=== PATIENT | male | born 1950 | race Caucasian/White ===

== ENCOUNTER → 2022-08-15 11:11 | Outpatient (BNVA) | payer OTHER, SELFPAY | PROVIDERS: PCP Family Medicine; Visit Provider Nurse Practitioner Family | DX: M15.9 Polyosteoarthritis, unspecified (principal) ==

== ENCOUNTER → 2022-09-26 14:23 | Outpatient (BNVA) | payer OTHER, SELFPAY | PROVIDERS: PCP Family Medicine; Visit Provider Surgery Vascular Surgery | DX: Z13.89 Encounter for screening for other disorder (principal) ==

== ENCOUNTER 2022-10-01 06:30 | Outpatient (REF) | payer OTHER, SELFPAY ==
--- NOTE | ~2022-10-01 | FL_ITS ---
EXAMINATION: XR FLUOROSCOPY WITH IMAGES CLINICAL INFORMATION: Post laminectomy syndrome. COMPARISON: None available TECHNIQUE: Fluoroscopy Supervised By: Dr. Ravi Fluoroscopy Time: 0.8 minutes Cumulative Dose: 34.3 mGy DAP: 7.80 Gycm2 Images: 1 FINDINGS: There is a single digital image obtained with the needle positioned at the L2-L3 disc level for pain management. No contrast is seen. No gross lytic or sclerotic process. FL/FL guidance in treatment room IMPRESSION: Fluoroscopy guidance was provided to the referrer for pain management.
== END 2022-10-01 06:31 | disposition home or self-care (01) ==
LOC: CF 06:30
PROVIDERS: Visit Provider Anesthesiology
DX: M96.1 Postlaminectomy syndrome, not elsewhere classified (principal); M79.671 Pain in right foot; M79.672 Pain in left foot; M15.9 Polyosteoarthritis, unspecified; I73.9 Peripheral vascular disease, unspecified
CPT/HCPCS: 62323; J1170

== ENCOUNTER → 2022-10-07 10:50 | Outpatient (BNVA) | payer OTHER, SELFPAY | PROVIDERS: PCP Family Medicine; Visit Provider Anesthesiology | DX: Z13.89 Encounter for screening for other disorder (principal) ==

== ENCOUNTER 2022-10-15 09:57 | Outpatient (REF) | payer OTHER, SELFPAY ==
--- NOTE | ~2022-10-15 | US_ITS ---
EXAMINATION: NONINVASIVE ASSESSMENT OF THE ARTERIES OF BOTH LOWER EXTREMITIES CLINICAL INFORMATION: Peripheral vascular disease. COMPARISON: None available. TECHNIQUE: Segmental ankle pulse volume recording, pressure measurement at the ankle and ankle brachial indices were obtained of the lower extremity arterial system bilaterally. In addition, bilateral lower extremity duplex ultrasound was performed with velocity measurements and waveform analysis in the common femoral arteries, profunda femoris arteries, proximal mid and distal superficial femoral arteries, popliteal arteries and tibial vessels. This study was performed at rest only. FINDINGS: a) AT REST: 1. The ankle-brachial indices are: Right 0.91 and left 0.89. >0.97-1.25 = normal - no significant arterial disease. 0.75-0.96 = mild peripheral arterial disease. 0.5-0.74 = moderate peripheral arterial disease. <0.50 = severe peripheral arterial disease. 2. Segmental pressure at ankle: Mildly decreased. 3. PVR waveform at ankle: Normal. 4. Duplex exam. Velocities in cm/sec and phasicity as well as the presence of plaque are reported below. RIGHT LEG: Minimal plaque is seen with the exception of tibial vessels which show some wgdf-tx-nujdqlef plaque. Multiphasic flow is present throughout. Elevated velocities in the mid SFA may represent some mild stenosis. Common Femoral: 123 Profunda Femoris: 114 Proximal SFA: 110 Mid SFA: 193 Distal SFA: 120 Popliteal: 58 Tibial: None visualized LEFT LEG: Minimal plaque is seen with the exception of tibial vessels which show some tbsd-mu-hqoagdir plaque. Multiphasic flow is present throughout. Elevated velocities in the mid SFA as well as the profunda origin may represent some mild stenotic disease. Common Femoral: 132 Profunda Femoris: 160 Proximal SFA: 123 Mid SFA: 187 Distal SFA: 66 Popliteal: 96 Tibial: 71 US/US arterial duplex LE BI IMPRESSION: By REYNALDO criteria, there is mild peripheral vascular disease bilaterally. There may be some mild SFA disease present.
--- NOTE | ~2022-10-15 | US_ITS ---
EXAMINATION: NONINVASIVE ASSESSMENT OF THE ARTERIES OF BOTH LOWER EXTREMITIES CLINICAL INFORMATION: Peripheral vascular disease. COMPARISON: None available. TECHNIQUE: Segmental ankle pulse volume recording, pressure measurement at the ankle and ankle brachial indices were obtained of the lower extremity arterial system bilaterally. In addition, bilateral lower extremity duplex ultrasound was performed with velocity measurements and waveform analysis in the common femoral arteries, profunda femoris arteries, proximal mid and distal superficial femoral arteries, popliteal arteries and tibial vessels. This study was performed at rest only. FINDINGS: a) AT REST: 1. The ankle-brachial indices are: Right 0.91 and left 0.89. >0.97-1.25 = normal - no significant arterial disease. 0.75-0.96 = mild peripheral arterial disease. 0.5-0.74 = moderate peripheral arterial disease. <0.50 = severe peripheral arterial disease. 2. Segmental pressure at ankle: Mildly decreased. 3. PVR waveform at ankle: Normal. 4. Duplex exam. Velocities in cm/sec and phasicity as well as the presence of plaque are reported below. RIGHT LEG: Minimal plaque is seen with the exception of tibial vessels which show some kucj-ld-lbbqqvpz plaque. Multiphasic flow is present throughout. Elevated velocities in the mid SFA may represent some mild stenosis. Common Femoral: 123 Profunda Femoris: 114 Proximal SFA: 110 Mid SFA: 193 Distal SFA: 120 Popliteal: 58 Tibial: None visualized LEFT LEG: Minimal plaque is seen with the exception of tibial vessels which show some xzpg-iu-pugdxibk plaque. Multiphasic flow is present throughout. Elevated velocities in the mid SFA as well as the profunda origin may represent some mild stenotic disease. Common Femoral: 132 Profunda Femoris: 160 Proximal SFA: 123 Mid SFA: 187 Distal SFA: 66 Popliteal: 96 Tibial: 71 US/US REYNALDO complete IMPRESSION: By REYNALDO criteria, there is mild peripheral vascular disease bilaterally. There may be some mild SFA disease present.
== END 2022-10-15 09:58 | disposition home or self-care (01) ==
LOC: HO.US 09:57
PROVIDERS: PCP Family Medicine; Visit Provider Surgery Vascular Surgery
DX: I70.213 Atherosclerosis of native arteries of extremities with intermittent claudication, bilateral legs (principal)
CPT/HCPCS: 93923; 93925

== ENCOUNTER 2022-10-17 11:44 | Day surgery (SDC) | payer OTHER, SELFPAY ==
[2022-10-10 15:16] VITALS: BMI 29.8
--- NOTE | 2022-10-16 12:21 | HO.ANESPROP2 ---
Documented by User: Radha Zamora NP 10/16/22 12:21 HPI - Anesthesia Eval Consult details Narrative: 72yo M for Intrathecal Drug Delivery Implant PMFSH Active Problems Active Problems: All Active Problems (Updated 10/10/22 @ 15:04 by Rianna Allen RN) Peripheral artery disease (Acute) Raynauds disease (Acute) Chronic pain syndrome (Acute) Peripheral neuropathy (Acute) Degenerative joint disease involving multiple joints (Acute) Failed back syndrome, lumbosacral (Acute) Foot pain, bilateral (Acute) Past Medical History Medical History (Updated 10/10/22 @ 15:04 by Rianna Allen RN) Abdominal tenderness Actinic keratosis Anxiety Chronic pain syndrome Constipated Degenerative joint disease involving multiple joints Depression Failed back syndrome, lumbosacral Foot pain, bilateral Functional diarrhea Hard of hearing Hypertensive disorder Leg edema Lumbar disc disease Nicotine dependence Osteoarthritis Peripheral artery disease Peripheral neuropathy Raynauds disease Seborrheic dermatitis Viral hepatitis C Surgical History Surgical History (Updated 10/10/22 @ 15:07 by Rianna Allen RN) H/O splenectomy History of appendectomy History of back surgery History of total hip replacement Social History Social History Alcohol intake: current Alcohol intake frequency: does not drink Patient Tobacco Use Status: Current everyday Tobacco user Tobacco use type: Cigarette Cigarette Packs Per Day: 0.5 Cigarettes Per Day: 10.0 Use of substances other than those prescribed or required for medical reasons: No Are you DNR?: No Advance Directives: No Advance Directives Information Provided: Yes Advance Directives on File: No Meds Allergies Allergy/AdvReac Type Severity Reaction Status Date / Time aspirin AdvReac Unknown Unknown Verified 10/07/22 10:53 Home Medications Medication Instructions Recorded Confirmed Last Taken Type cholecalciferol (vitamin D3) 75 75 mcg PO DAILY 08/15/22 10/17/22 10/16/22 History mcg (3,000 unit) tablet diltiazem HCl 120 mg 120 mg PO DAILY 08/15/22 10/17/22 10/16/22 History capsule,extended release 24 hr gabapentin 600 mg tablet 1,200 mg PO BID 08/15/22 10/17/22 10/16/22 History naproxen 500 mg tablet 500 mg PO BID 08/15/22 10/17/22 Unknown History omega 7-wzv-poq-fish oil 100 cap PO 08/15/22 Unknown History mg-160 mg-1,000 mg capsule (Fish Oil) paroxetine HCl 30 mg tablet 60 mg PO DAILY 08/15/22 10/17/22 10/16/22 History Exam Exam Date and Time: October 16, 2022 1221 Height,Weight and Vital Signs: Height 6 ft Weight 99.79 kg Assessment and Plan Assessment Anesthesia Assessment: Chart Reviewed Documented by User: Robert Waite MD 10/17/22 13:13 PMFSH Past Medical History Medical History (Updated 10/10/22 @ 15:04 by Rianna Allen RN) Abdominal tenderness Actinic keratosis Anxiety Chronic pain syndrome Constipated Degenerative joint disease involving multiple joints Depression Failed back syndrome, lumbosacral Foot pain, bilateral Functional diarrhea Hard of hearing Hypertensive disorder Leg edema Lumbar disc disease Nicotine dependence Osteoarthritis Peripheral artery disease Peripheral neuropathy Raynauds disease Seborrheic dermatitis Viral hepatitis C Family History Family history of problems with anesthesia: No Surgical History Surgical History (Updated 10/10/22 @ 15:07 by Rianna Allen RN) H/O splenectomy History of appendectomy History of back surgery History of total hip replacement History of Problems with Anesthesia: No Social History Social History Alcohol intake: current Alcohol intake frequency: does not drink Patient Tobacco Use Status: Current everyday Tobacco user Tobacco use type: Cigarette Cigarette Packs Per Day: 0.5 Cigarettes Per Day: 10.0 Use of substances other than those prescribed or required for medical reasons: No Are you DNR?: No Advance Directives: No Advance Directives Information Provided: Yes Advance Directives on File: No Meds Allergies Allergy/AdvReac Type Severity Reaction Status Date / Time aspirin AdvReac Unknown Unknown Verified 10/07/22 10:53 Home Medications Medication Instructions Recorded Confirmed Last Taken Type cholecalciferol (vitamin D3) 75 75 mcg PO DAILY 08/15/22 10/17/22 10/16/22 History mcg (3,000 unit) tablet diltiazem HCl 120 mg 120 mg PO DAILY 08/15/22 10/17/22 10/16/22 History capsule,extended release 24 hr gabapentin 600 mg tablet 1,200 mg PO BID 08/15/22 10/17/22 10/16/22 History naproxen 500 mg tablet 500 mg PO BID 08/15/22 10/17/22 Unknown History omega 8-nmz-bdd-fish oil 100 cap PO 08/15/22 Unknown History mg-160 mg-1,000 mg capsule (Fish Oil) paroxetine HCl 30 mg tablet 60 mg PO DAILY 08/15/22 10/17/22 10/16/22 History Exam Airway Mallampati Class: I TM Dist: >3cm Neck ROM: Full Denture: Lower Heart: ok Lungs: ok Assessment and Plan Assessment Anesthesia Assessment: Anesthesia Plan Discussed Final Anesthetic Review Family History of Problems with Anesthesia: No History of Problems with Anesthesia: No NPO: Yes ASA Class: II Final Preanesthetic Review: No Changes in Pt Med Stat, Meds/Allgs Chart Reviewed, Consent Obtained/Reviewed and Anes Risks/Benef Reviewed Patient Risk: Intermediate Procedure Risk: Intermediate Anesthetic Plan Anesthetic Plan: GA and Agree w/ Assess. and Plan Disposition: Standard PACU
[2022-10-17] VITALS (9 sets, daily range): BP systolic 130–166; BP diastolic 66–94; PULSE 64–83; RESP 16–20; TEMP 36.6–36.8; O2SAT 95–100
--- NOTE | ~2022-10-17 | FL_ITS ---
EXAMINATION: XR FLUOROSCOPY WITH IMAGES CLINICAL INFORMATION: Intrathecal drug delivery implant. COMPARISON: None available. TECHNIQUE: Fluoroscopy Supervised By: Dr. Haynes. Fluoroscopy Time: 0.3 minutes. Cumulative Dose: 7.44 mGy. DAP: 2.02 Gycm2. Images: 2. FINDINGS: There are 2 digital images obtained in the OR with epidural electrode positioned in lower dorsal spine. No gross bony abnormality seen. FL/FL guidance in OR IMPRESSION: Fluoroscopy guidance was provided to referring physician for pain management.
--- NOTE | ~2022-10-17 | XR_ITS ---
EXAMINATION: XR SOFT TISSUE NECK CLINICAL INDICATION: Dysphasia COMPARISON: None available. TECHNIQUE: Single frontal image FINDINGS: This exam is largely nondiagnostic. The respirator device and the patient's jaw is overlying the field. A lateral film was not obtained. XR/XR soft tissue neck IMPRESSION: Largely nondiagnostic exam due to single imaging overlying density. If further evaluation is warranted recommend CT
--- NOTE | ~2022-10-17 | XR_ITS ---
EXAMINATION: XR CHEST CLINICAL INFORMATION: Inability to swallow post anesthesia. COMPARISON: None available. TECHNIQUE: Frontal view of the chest was obtained. FINDINGS: No significant abnormality is noted involving the heart, lungs, mediastinum, bony thorax or soft tissues. XR/XR chest 1V IMPRESSION: No acute cardiopulmonary process.
[2022-10-17] MEDS: Lactated Ringers 1,000 ML 100 ML IVCONT (12:38)
--- NOTE | 2022-10-17 13:27 | P.HPSUR_ITS ---
Pre-Procedural Eval Section A Date of Service: 10/17/22 The patient is an INPATIENT: No Changes since office visit: Yes Patient answered all questions The History & Physical has been completed within 30 days and I have reviewed it.: No Section B Chief Complaint: Postlaminectomy syndrome, not elsewhere classified Details of Present Illness: As above Relevant Family History (Specify if Yes): No Relevant Social History: None Present Medications: see Short Stay Collaborative assessment Medical History: No relevant PMH History of Previous Operations: Relevant previous surgery/procedure and date(s) Allergies: Allergies Allergy/AdvReac Type Severity Reaction Status Date / Time aspirin AdvReac Unknown Unknown Verified 10/07/22 10:53 Review of Systems Sugical H&P ROS: Negative: Constitution, Cardiovascular, Respiratory, Neurological, Psychiatric, Hem-Onc, Allergic/Immunologic, Gastrointestinal, Genitourinary, Musculoskeletal, Integumentary, Endocrine and Eyes/ Ears/Nose/Throat Exam Surgical H&P Exam: Normal: HEENT, Normal: Heart, Normal: Lungs, Normal: Extremities, Normal: Abdomen, Normal: Skin and Normal: Neurological Plan Diagnosis/Plan: Unchanged I have reviewed the history and physical and performed a pertinent physical examination on my patient. No changes have occurred unless specified. Time Spent With Patient Time: Total time managing care of this patient today ____ minutes.
--- NOTE | 2022-10-17 13:37 | P.OP_ITS ---
Operative Note Operative Note Date of Service: 10/17/22 Narrative: Implantation of the intrathecal pain pump [employer]. After obtaining informed consent and explaining to the patient risks, benefits and alternatives to treat this patient's pain, he was brought up to the ope rating room where he was positioned prone on the OR table.? [place] [employer] monitors were applied and general anesthesia was induced withLMA inserted in prone position. All pressure points were protected.? The patient received antibiotic? cefasolin 2 g intravenously 30 minutes before incision. Time-out was performed delineating correct site and side of the procedure, name and date of of the patient, risk of fire, need for antibiotic prophylaxis risk of DVT and need for DVT prophylaxis. ? After that the patient entire back? and left upper buttock were prepped with Chloraprep and draped with full body drape including ioban film. Sterilely drape C-arm was brought over the OR field and square pictures of the L1, L2, L3 vertebrae were demonstrated on the screen.? severe spondylosis was noted at the entire lumbar spine..the entrance point? for the catheter was chosen as the L1- L2 interspace? .? Local anesthetic was injected into the skin and in the strict midline fashion? 6.5 cm vertical skin incision was made with #10 scalpel. The incision was widened with the Weitlaner retractor and deepened with electrocautery. Thorough hemostasis was obtained using electrocautery. The prevertebral fascia was freed from overlaying tissues. After that 100 mm introducer spinal 16 g needle was inserted under x-ray guidance in the projection of the right? L2 pedicle on AP view. The needle advanced under the x- ray guidance with intemittent A-P? and lateral pictures toward the spinal canal. When on the lateral view the needle entered the spinal canal the stylet was removed.?Clear straw colored CSF was running freely from the hub of the needle.? Intrathecal Ascenda catheter was inserted through the needle and advanced under the x-ray guidance toward the T8? T9 intervertebral body interval projection The advancement of the catheter was made in the posterior intrathecal space.. The stylet was removed from the catheter and the flow of CSF fluid straw colored and clear was observed coming from the catheter.? Purse-string suture was applied surrounding? the a needle and it was tied.? After that the needle was withdrawn with care taken to keep the catheter in place.? Anchoring device was dislodged on the catheter and advanced until it met prevertebral fascia.? It was engaged on the body of the catheter.?One anchoring Tycron suture was? used to suture left wing of the anchor to prevertebral fascia and 2 anchoring sutures Tycron was used to stitch in the right wing of anchoring device to prevertebral fascia. ?After that the thorough irrigation of the wound was performed and wound was packed with vancomycin soaked 4 x 4. Attention then was concentrated on the patient's? right upper buttock where he wanted to implant the body of the intrathecal pump..Sterilely draped C-arm was brought over the operative field again and position of the patient's ? left iliac crest was demonstrated on the screen.?3 cm below the projection of the? left iliac crest? to the skin of the local anesthetic bupivacaine? 0.75% was injected in the linear horizontal fashion.? After that 10?cm incision was performed in patient's? left upper buttock alongside the injected line. ? Thorough hemostasis was obtained using cautery device.? After that the wound was widened and made 3? cm deep .? The pocket was extended medially and laterally as well as caudally and cranially to form the space to accommodate the body of the pump.? Thorough hemostasis was performed. .The wound was irrigated with vancomycin containing normal saline and then tunneling device was used to connect both wounds and dislodged the intrathecal catheter into the side wound.? The catheter was trimmed appropriately after that and sutureless connection device was mounted on the catheter.? After that sutureless connection device was connected to the pump.? Aspiration with non- coring needle of the side port of the pump revealed clear flow of CSF.? three anchoring 1-0 Tycron sutures were applied in most SUPERIOR lateral, most inferior lateral and most inferior medial corners of the wound.? After that the sutures were connected to the brackets on the body of the pump, intrathecal catheter was gathered behind the body of the pump and pump was dislodged into the wound.? After that the anchoring sutures were tied.? After that noncoring needle was used again to reach side port of the pump in clear flow of CSF 0.5 mL was demonstrated in the syringe connected to the noncoring needle. ? Thorough irrigation was performed again in both wounds.? Thorough hemostasis was verified.? 0 polisorb sutures were used to close both wounds, 2-0 suture of the same nature were used to approximate the skin.? Letitia were applied to the skin line and Bacitracin ointment was applied to the staple lines.? Sterile dressing with sterile 4x4s was performed, abdominal binder was applied.? Upon completion of the procedure patient was awaken extubated and taken outside of the operating room to recovery room where HE recovered uneventfully
[2022-10-17] MEDS: dexAMETHasone sod phosphate 4 MG/ML VIAL IVPUSH (17:00)
--- NOTE | 2022-10-17 17:01 | PM.OP ---
Brief Operative Note Date of Service: 10/17/22 Pre-op diagnosis: postlaminectomy syndrone, chronic pain syndrome Post-op diagnosis: same Procedure: implantation of ITDD medtronics Implants: Ascenda intrathecal catheter and SynchroMed II intrathecal pain pump Surgeon: Dallas Ravi MD Anesthesia: GLMA Was an Metal Drill Operator used for this Procedure?: No Estimated blood loss (mL): 10 Pathology: none sent Condition: stable Disposition: PACU
[2022-10-17] MEDS: diphenhydrAMINE HCL 50 MG/ML VIAL 12.5 MG IVPUSH (17:07)
--- NOTE | 2022-10-17 17:07 | P.EN_ITS ---
Event Note Date of Service: 10/17/22 Event Note: Patient complaining of inability to swallow secretions upon waking up and being brought to the PACU. Producing copious secretions that require suctioning due to inability to swallow them. On physical examination the patient demonstrates intact strength in upper e xtremities and no deviation of the tongue or the uvula. He is able to articulate. My exam is limited in comparison since I did not meet him preoperatively. Intraop records reviewed; notable for exchange of LMA from size 4 to size 5 due to a leak. Examination undertaken with a video laryngoscope inserted into the oropharynx to assess the nogueira of the oropharynx. Notable edema noted surrounding the uvula along with excoriation raymond on the uvula and the pharynx. Likely secondary to LMA placement. Ordered 4 mg of IV dexamethasone, 12.5 mg of IV Benadryl, nebulizer of racemic epinephrine and a chest x-ray to rule out any retained objects in the pharynx. Ventilation appropriate, able to exchange or without difficulty, auscultation of the chest consistent with underlying COPD. Equal entry noted on both chest sides. Reassured patient that this is likely due to edema and swelling of upper airway tissue. Airway exchange is reassuring as well. We will continue to monitor response to IV dexamethasone and Benadryl as well as receive elier epinephrine nebulization. If he continues to exhibit symptoms of inability to manage secretions, may need overnight observation. Time Spent With Patient Time: Total time managing care of this patient today ____ minutes.
[2022-10-17] MEDS: Racepinephrine HCL 0.5 ML VIAL.NEB INHALE (17:31)
--- NOTE | 2022-10-17 20:43 | PC.NURSE ---
2042 Call from patient's daughter, Libby Ireland, along with patient's spouse present in regard to patient recent discharge instructions following pain procedure. Patient daughter expressed concerns regarding patient preoperative work up related to patient being hard of hearing and why were dentures not removed prior to procedure. KARISSA Lainez/Michael advised that a call should be made to Director of Anesthesia regarding this matter tomorrow to obtain additional information and discuss matter as PACU staff lack any direct knowledge of pre-operative work up of the patient. Daughter reports patient breathing stable and able to eat dinner meal without any swallowing difficulties. Patient daughter inquired regarding why patient unable to smoke post procedure. Reviewed recommendation post surgical procedure for safety and airway irritation for all patients is to avoid smoking for first 24 hours best practice if possible. Patient daughter questioned reasoning for Incentive Spiromenter. Why didn't my dad stay overnight if they are concerned with his breathing . Patient daughter educated in reasoning for use of I/S following any surgical procedures and that all surgical patients are cleared for discharge from anesthesia prior to departing. Again advised to follow-up with Director of Anesthesia and Patient daughter stated, I am ok with it.
== END 2022-10-17 18:30 | disposition home or self-care (01) ==
PROVIDERS: PCP Family Medicine; Visit Provider Anesthesiology
PROC: (CPT 62350; principal; 2022-10-17 13:20)
DX: M96.1 Postlaminectomy syndrome, not elsewhere classified (principal); G89.4 Chronic pain syndrome; I73.00 Raynaud's syndrome without gangrene; T88.8XXA Other specified complications of surgical and medical care, not elsewhere classified, initial encounter; R13.0 Aphagia; S00.512A Abrasion of oral cavity, initial encounter; S10.11XA Abrasion of throat, initial encounter; Y83.8 Other surgical procedures as the cause of abnormal reaction of the patient, or of later complication, without mention of misadventure at the time of the procedure; Y82.8 Other medical devices associated with adverse incidents; Y92.238 Other place in hospital as the place of occurrence of the external cause; G62.9 Polyneuropathy, unspecified; I10 Essential (primary) hypertension; I73.9 Peripheral vascular disease, unspecified; M15.9 Polyosteoarthritis, unspecified; M79.671 Pain in right foot; M79.672 Pain in left foot; Z79.899 Other long term (current) drug therapy; F17.210 Nicotine dependence, cigarettes, uncomplicated; Z88.8 Allergy status to other drugs, medicaments and biological substances
CPT/HCPCS: 62350; 62362; 70360; 71045; C1755; C1772; J0153; J0690; J1100; J1170; J1200; J2405; J2795; J3010; J3370

== ENCOUNTER → 2022-10-23 14:37 | Outpatient (BNVA) | payer OTHER, SELFPAY | PROVIDERS: PCP Family Medicine; Visit Provider Anesthesiology | DX: Z13.89 Encounter for screening for other disorder (principal) ==

== ENCOUNTER → 2022-10-29 13:03 | Outpatient (BNVA) | payer OTHER, SELFPAY | PROVIDERS: PCP Family Medicine; Visit Provider Nurse Practitioner Family | DX: Z13.89 Encounter for screening for other disorder (principal) ==

== ENCOUNTER → 2022-11-07 10:41 | Outpatient (BNVA) | payer OTHER, SELFPAY | PROVIDERS: PCP Family Medicine; Visit Provider Anesthesiology | DX: M15.9 Polyosteoarthritis, unspecified (principal); M96.1 Postlaminectomy syndrome, not elsewhere classified; M79.671 Pain in right foot; M79.672 Pain in left foot; G89.4 Chronic pain syndrome; G62.9 Polyneuropathy, unspecified | CPT/HCPCS: 62370 ==

== ENCOUNTER → 2022-11-12 14:09 | Outpatient (BNVA) | payer OTHER, SELFPAY | PROVIDERS: PCP Family Medicine; Visit Provider Surgery Vascular Surgery | DX: Z13.89 Encounter for screening for other disorder (principal) ==

== ENCOUNTER → 2022-12-18 13:34 | Outpatient (BNVA) | payer OTHER, SELFPAY | PROVIDERS: PCP Family Medicine; Visit Provider Anesthesiology | DX: Z45.89 Encounter for adjustment and management of other implanted devices (principal); G62.9 Polyneuropathy, unspecified; M15.9 Polyosteoarthritis, unspecified; M96.1 Postlaminectomy syndrome, not elsewhere classified; M79.671 Pain in right foot; M79.672 Pain in left foot; G89.4 Chronic pain syndrome | CPT/HCPCS: 62370 ==

== ENCOUNTER → 2023-01-29 15:03 | Outpatient (BNVA) | payer OTHER, SELFPAY | PROVIDERS: PCP Family Medicine; Visit Provider Anesthesiology | DX: Z45.1 Encounter for adjustment and management of infusion pump (principal); G89.4 Chronic pain syndrome; G62.9 Polyneuropathy, unspecified; M15.9 Polyosteoarthritis, unspecified; M96.1 Postlaminectomy syndrome, not elsewhere classified; M79.671 Pain in right foot; M79.672 Pain in left foot | CPT/HCPCS: 62370 ==

== ENCOUNTER 2023-03-10 15:03 | Outpatient (AMB) | payer OTHER, SELFPAY ==
--- NOTE | 2023-03-10 15:46 | MHC.OFFVIS ---
Intake Vital Signs 03/10/23 15:48 BP 159/77 H Blood Pressure Location Rt brachial Position Sitting Pulse 73 Pulse Source Pulse Oximeter Pulse Oximetry (%) 97 Oxygen Delivery Method Room Air Intake Visit Reasons: ITDD Refill Allergies aspirin Adverse Reaction (Unknown, Verified 03/10/23 15:48) Unknown Medication List - Last Reconciled 03/10/23 by Vira Hassan RN cholecalciferol (vitamin D3) 75 mcg PO DAILY diltiazem HCl 120 mg PO DAILY gabapentin 1,200 mg PO BID linaclotide (Linzess) 290 mcg PO DAILY naloxone 4 mg/actuation 4 mg intranasal Q3M PRN 1 day naproxen 500 mg PO BID omega [id number] oil 100-160-1,000 mg (Fish Oil) caps PO paroxetine HCl 60 mg PO DAILY HPI HPI Comments History of Present Illness Details Zheng is here today for pump refill and pump adjustment. The procedure was refilled as below. The concentration of the medication was changed. He will be now having 2000 micro g of hydromorphone in his pump and addition to that he will have 6 mg of the bupivacaine. He reports better pain relief. He reports better activities of daily living and better social interactions. Pain pump implant was performed on 10/17/2022. PRIOR: Patient is a 72 years old male with history of right lower lumbar radiculopathy, L5-S1 right microlumbar discectomy and bilateral lateral decompression, bilateral hip replacements, feet ulcers with skin grafting, percutaneous dorsal column [place] SCS and most recent right femur fracture presents today with severe neuropathic pain in both of his feet and ankles and widespread pain in his body. He is accompanied by his and his daughter is also present via phone speaker to assist with history intake. Patient arrived by wheelchair today due to stress fracture healing but has been using a walker for transfers and ambulation prior to this. Femur stress fracture is currently managed by [facility]. Pain is described as intermittent pulsing, throbbing, pounding, dull, sore, hurting, aching, heavy and stinging. Pain ranges from 5/10 to 9/10 in severity in the past 2 weeks. Patient reports his pain has been worsening over the past 4 years. He was followed by [facility] and received multiple injections for lumbar spinal stenosis with neurogenic claudication, physical therapy, chiropractic manipulation therapy, topical compound cream and medical management with opioid and non-opioid medications. He also tried yoga, heat and ice therapy and over the counter topical application without relief. Currently, patient is taking oxycodone 5 mg tid-qid for femur stress fracture, gabapentin 2400 mg/day and Naproxen prn. Also tried duloxetine and amitriptyline in the past with minimal effects. Patient was counseled in the past to avoid Lyrica and acetaminophen due to Hepatitis C. Patient reports SCS implant has been working well for the back but not for his feet. His program settings were readjusted many times but could not achieve reduction in lower legs and feet pain. SCS implant device was last adjusted on 03/2022. Reports progressive bilateral lower extremity weakness over the past 4 years. Patient denies bowel or bladder incontinence or saddle anesthesia. Patient reports history of DVT in his leg, cannot recall which side and location and reports history of 9 week hospitalization in 02/2021 for foot ulcers related to osteomyelitis and required skin grafts. He reports constant stinging pain in the mornings in the dorsal aspects of both feet. Patient denies diabetes mellitus. Patient is a former smoker. He used to see vascular surgeon Dr. Roman at [facility] for DVT with last visit over a year ago. Patient has significant discoloration of both feet with cold to touch, pale lower legs, absent hair growth and color changes in both dorsal surfaces of both feet. Diminished pulses with delayed capillary refill especially in his left 2nd toe which patient reports at times goes ?completely dark.? Patient presents with decreased sensation to plantar and dorsal surfaces. Reports rest and claudication pain. Patient reports constant stabbing, aching and burning pain in both feet. 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 Similar but milder neuropathy affecting upper extremities. This EMG study did not suggest demyelinating type of neuropathy. EMG study for noted for chronic right lower lumbar radiculopathy and chronic right mid to lower cervical radiculopathy. Lumbar spine MRI 12/07/21 showed moderate multilevel degenerative spondyloarthropathy of the lumbar spine and moderate to severe neural foraminal stenoses from L1-S1. Patient denies any specific cervical or lumbar pain today and is interested in interventional treatments to alleviate his ?both feet nerve pain? and increase strength in lower extremities with walking. [facility] Medical History Abdominal tenderness Actinic keratosis Anxiety Chronic pain syndrome Constipated Degenerative joint disease involving multiple joints Depression Failed back syndrome, lumbosacral Foot pain, bilateral Functional diarrhea Hard of hearing Hypertensive disorder Leg edema Lumbar disc disease Nicotine dependence Osteoarthritis Peripheral artery disease Peripheral neuropathy Raynauds disease Seborrheic dermatitis Viral hepatitis C Surgical History H/O splenectomy History of appendectomy History of back surgery History of total hip replacement Social History Alcohol intake: current Alcohol intake frequency: does not drink Patient Tobacco Use Status: Current everyday Tobacco user Tobacco use type: Cigarette Cigarette Packs Per Day: 0.5 Cigarettes Per Day: 10.0 Review of Systems Const All systems reviewed & are unremarkable except as noted in HPI and below ENT Reports Normal hearing present Neuro Reports Normal hearing present Physical Exam Vital Signs: Last Vital Signs Pulse 73 03/10/23 15:48 BP 159/77 H 03/10/23 15:48 Pulse Ox 97 03/10/23 15:48 Oxygen Delivery Method Room Air 03/10/23 15:48 General: Appears afebrile. Alert and oriented. Mood and affect appropriate. Follows and participates in conversation appropriately. Respiratory effort is unlabored. Able to transition from sit to stand with assistance of walker. Ambulates with bilaterally normal heel strike and toe off. Back/Spine/Pelvis Other: The dressing was removed. No pathological discharge, tenderness, redness, bruising or erythema noted in both incisions. The incisions were washed with ChloraPrep and mesha were removed. Steri strips were applied to battery pocket site incision. The incisions were washed with ChloraPrep again and dressed with bacitracin ointment, sterile dry gauze and Tegaderm film. Cervical Spine: No Cervical spine tenderness Thoracic/Lumbar Spine: thoracic and lumbar spine normal to inspection, Thoracic/lumbar spine scar(s), thoraco-lumbar ROM limited, No thoracic spinal tenderness and No lumbar spinal tenderness Neuro Cranial nerves: Yes Normal hearing present Assessment & Plan Assessment & Plan (1) Chronic pain syndrome: Code(s): G89.4 - Chronic pain syndrome (2) Peripheral neuropathy: Code(s): G62.9 - Polyneuropathy, unspecified (3) Degenerative joint disease involving multiple joints: Code(s): M15.9 - Polyosteoarthritis, unspecified Plan: He reports good pain relieve now. He will be receiving 90 micro g of hydromorphone a day as well as 80 micro g of hydromorphone every 4 hours p.r.n. pain intrathecally. Now hydromorphone will be giving to him with corresponding doses of the bupivacaine. This might improve his arthritic pain in the lower extremities. (4) Failed back syndrome, lumbosacral: Code(s): M96.1 - Postlaminectomy syndrome, not elsewhere classified Plan: ? Intrathecal pump refill. THE PATIENT CAME TODAY IN THE OR - PACU FOR THE CHANGE OF THE MEDICATION IN her PAIN PUMP. The name and date of were verified and informed consent was obtained for the procedure. ?The pump was interrogated and the residual amount of fluid was found to be 3.2 mL. HE WAS POSITIONED prone on the bed AND THE AREA OF THE INTRATHECAL PUMP WAS PREPPED WITH CHLORAPREP. The fenestrated drape was sterilely applied over the area of the pump. Sterile gloves were worn and of the aspiration system was assembled containing 2 in 22 gauge noncoring needle, the needle was connected to extension tubing which was connected to the 20 cc sterile syringe. The pain pump was palpated under the skin in the patient's right buttock area. The needle was inserted through the skin and the central plug of the pain pump and fluid was aspirated. The clear fluid was going into the syringe the total amount of the fluid was 3.2 mL .. After that a new batch? of medication was obtained which was containing hydromorphone in concentration 2000 micro g/ml and 6 mg/ml of bupivacaine. . The admixture was made in 20 cc syringe prepared by [facility]. The syringe was connected to the bacterial filter, and then connected to the extension tubing. After that the medication in the syringe was slowly instilled into the pump with aspirations at 15 and 5 cc raymond.? The pump was reprogrammed for the doses of continuous hydromorphone of 90 mcg a day, he is also is reprogrammed to receive 80 micro g of Dilaudid with corresponding doses of the bupivacaine on demand 4 times a day with lockout interval of 4 hours. The medication will be administered over 5 minutes . Bridge bolus was also program for 88 hours. (5) Foot pain, bilateral: Code(s): M79.671 - Pain in right foot; M79.672 - Pain in left foot Plan Next refill of the pump will be done in May. Coding Level of Care Code Est Pt Level 4 (32237) Procedure Only Diagnoses Chronic pain syndrome G89.4 Peripheral neuropathy G62.9 Degenerative joint disease involving multiple joints M15.9 Failed back syndrome, lumbosacral M96.1 Foot pain, bilateral M79.671; M79.672
[2023-03-10 15:48] VITALS: BP 159/77; PULSE 73; O2SAT 97
== END 2023-03-10 15:37 | disposition home or self-care (01) ==
PROVIDERS: PCP Family Medicine; Visit Provider Anesthesiology
DX: Z45.1 Encounter for adjustment and management of infusion pump (principal); G89.4 Chronic pain syndrome; G62.9 Polyneuropathy, unspecified; M15.9 Polyosteoarthritis, unspecified; M96.1 Postlaminectomy syndrome, not elsewhere classified; M79.671 Pain in right foot; M79.672 Pain in left foot
CPT/HCPCS: 62370; 99213

== ENCOUNTER → 2023-03-10 15:03 | Outpatient (BNVA) | payer OTHER, SELFPAY | PROVIDERS: PCP Family Medicine; Visit Provider Anesthesiology ==

== ENCOUNTER 2023-05-26 15:47 | Outpatient (AMB) | payer OTHER, SELFPAY ==
--- NOTE | 2023-05-26 15:51 | A.OFFVIS_ITS ---
Intake Vital Signs 05/26/23 16:02 Height 6 ft Weight 218 lb BMI 29.6 BP 138/82 Blood Pressure Location Rt radial Position Sitting Respiration 14 Pulse 66 Pulse Source Pulse Oximeter Pulse Oximetry (%) 93 Oxygen Delivery Method Room Air Intake Visit Reasons: PAIN PUMP FOLLOW UP AFTER MRI Intake Note: patient comes in for follow up after MRI. Pain level today 6-7/10. Allergies aspirin Adverse Reaction (Unknown, Verified 05/26/23 16:04) Unknown HPI HPI Comments History of Present Illness Details Zheng is here today for pump Interrogation after the MRI. It appears to be that the device is working appropriately. The pump refill is 06/02/2023. I will see this patient at that time. . He will be now having 2000 micro g of hydromorphone in his pump and addition to that he will have 6 mg of the bupivacaine. He reports better pain relief. He reports better activities of daily living and better social interactions. Pain pump implant was performed on 10/17/2022. PRIOR: Patient is a 72 years old male with history of right lower lumbar radiculopathy, L5-S1 right microlumbar discectomy and bilateral lateral decompression, bilateral hip replacements, feet ulcers with skin grafting, percutaneous dorsal column [place] SCS and most recent right femur fracture presents today with severe neuropathic pain in both of his feet and ankles and widespread pain in his body. He is accompanied by his and his daughter is also present via phone speaker to assist with history intake. Patient arrived by wheelchair today due to stress fracture healing but has been using a walker for transfers and ambulation prior to this. Femur stress fracture is currently managed by [facility]. Pain is described as intermittent pulsing, throbbing, pounding, dull, sore, hurting, aching, heavy and stinging. Pain ranges from 5/10 to 9/10 in severity in the past 2 weeks. Patient reports his pain has been worsening over the past 4 years. He was followed by [facility] and received multiple injections for lumbar spinal stenosis with neurogenic claudication, physical therapy, chiropractic manipulation therapy, topical compound cream and medical management with opioid and non-opioid medications. He also tried yoga, heat and ice therapy and over the counter topical application without relief. Currently, patient is taking oxycodone 5 mg tid-qid for femur stress fracture, gabapentin 2400 mg/day and Naproxen prn. Also tried duloxetine and amitriptyline in the past with minimal effects. Patient was counseled in the past to avoid Lyrica and acetaminophen due to Hepatitis C. Patient reports SCS implant has been working well for the back but not for his feet. His program settings were readjusted many times but could not achieve reduction in lower legs and feet pain. SCS implant device was last adjusted on 03/2022. Reports progressive bilateral lower extremity weakness over the past 4 years. Patient denies bowel or bladder incontinence or saddle anesthesia. Patient reports history of DVT in his leg, cannot recall which side and location and reports history of 9 week hospitalization in 02/2021 for foot ulcers related to osteomyelitis and required skin grafts. He reports constant stinging pain in the mornings in the dorsal aspects of both feet. Patient denies diabetes mellitus. Patient is a former smoker. He used to see vascular surgeon Dr. Roman at [facility] for DVT with last visit over a year ago. Patient has significant discoloration of both feet with cold to touch, pale lower legs, absent hair growth and color changes in both dorsal surfaces of both feet. Diminished pulses with delayed capillary refill especially in his left 2nd toe which patient reports at times goes ?completely dark.? Patient presents with decreased sensation to plantar and dorsal surfaces. Reports rest and claudication pain. Patient reports constant stabbing, aching and burning pain in both feet. 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 Similar but milder neuropathy affecting upper extremities. This EMG study did not suggest demyelinating type of neuropathy. EMG study for noted for chronic right lower lumbar radiculopathy and chronic right mid to lower cervical radiculopathy. Lumbar spine MRI 12/07/21 showed moderate multilevel degenerative spondyloarthropathy of the lumbar spine and moderate to severe neural foraminal stenoses from L1-S1. Patient denies any specific cervical or lumbar pain today and is interested in interventional treatments to alleviate his ?both feet nerve pain? and increase strength in lower extremities with walking. [facility] Medical History Abdominal tenderness Actinic keratosis Anxiety Chronic pain syndrome Constipated Degenerative joint disease involving multiple joints Depression Failed back syndrome, lumbosacral Foot pain, bilateral Functional diarrhea Hard of hearing Hypertensive disorder Leg edema Lumbar disc disease Nicotine dependence Osteoarthritis Peripheral artery disease Peripheral neuropathy Raynauds disease Seborrheic dermatitis Viral hepatitis C Surgical History H/O splenectomy History of appendectomy History of back surgery History of total hip replacement Social History Alcohol intake: current Alcohol intake frequency: does not drink Patient Tobacco Use Status: Current everyday Tobacco user Tobacco use type: Cigarette Cigarette Packs Per Day: 0.5 Cigarettes Per Day: 10.0 Review of Systems Const All systems reviewed & are unremarkable except as noted in HPI and below ENT Reports Normal hearing present Neuro Reports Normal hearing present Physical Exam Vital Signs: Last Vital Signs Pulse 66 05/26/23 16:02 Resp 14 05/26/23 16:02 BP 138/82 05/26/23 16:02 Pulse Ox 93 05/26/23 16:02 Oxygen Delivery Method Room Air 05/26/23 16:02 BMI result Body Mass Index 29.6 General: Appears afebrile. Alert and oriented. Mood and affect appropriate. Follows and participates in conversation appropriately. Respiratory effort is unlabored. Able to transition from sit to stand with assistance of walker. Ambulates with bilaterally normal heel strike and toe off. Back/Spine/Pelvis Other: The dressing was removed. No pathological discharge, tenderness, redness, bruising or erythema noted in both incisions. The incisions were washed with ChloraPrep and mesha were removed. Steri strips were applied to battery pocket site incision. The incisions were washed with ChloraPrep again and dressed with bacitracin ointment, sterile dry gauze and Tegaderm film. Cervical Spine: No Cervical spine tenderness Thoracic/Lumbar Spine: thoracic and lumbar spine normal to inspection, Thoracic/lumbar spine scar(s), thoraco-lumbar ROM limited, No thoracic spinal tenderness and No lumbar spinal tenderness Neuro Cranial nerves: Yes Normal hearing present Assessment & Plan Assessment & Plan (1) Chronic pain syndrome: Code(s): G89.4 - Chronic pain syndrome (2) Peripheral neuropathy: Code(s): G62.9 - Polyneuropathy, unspecified (3) Degenerative joint disease involving multiple joints: Code(s): M15.9 - Polyosteoarthritis, unspecified Plan: He reports good pain relieve now. He will be receiving 90 micro g of hydromorphone a day as well as 80 micro g of hydromorphone every 4 hours p.r.n. pain intrathecally. Now hydromorphone will be giving to him with corresponding doses of the bupivacaine. This might improve his arthritic pain in the lower extremities. (4) Failed back syndrome, lumbosacral: Code(s): M96.1 - Postlaminectomy syndrome, not elsewhere classified Plan: ? Intrathecal pump Interrogation was performed to assure normal work of the pain pump. The patient denies any withdrawal symptoms.. (5) Foot pain, bilateral: Code(s): M79.671 - Pain in right foot; M79.672 - Pain in left foot Plan Next refill of the pump will be done in May. 06/02/2023 Coding Level of Care Code Est Pt Level 3 (00318) Diagnoses Chronic pain syndrome G89.4 Peripheral neuropathy G62.9 Degenerative joint disease involving multiple joints M15.9 Failed back syndrome, lumbosacral M96.1 Foot pain, bilateral M79.671; M79.672
[2023-05-26 16:02] VITALS: BP 138/82; PULSE 66; RESP 14; O2SAT 93; BMI 29.6
== END 2023-05-26 16:00 | disposition home or self-care (01) ==
PROVIDERS: PCP Family Medicine; Visit Provider Anesthesiology
DX: G89.4 Chronic pain syndrome (principal); M96.1 Postlaminectomy syndrome, not elsewhere classified; M15.9 Polyosteoarthritis, unspecified; Z45.1 Encounter for adjustment and management of infusion pump; G62.9 Polyneuropathy, unspecified; M79.671 Pain in right foot; M79.672 Pain in left foot
CPT/HCPCS: 62368; 99213

== ENCOUNTER → 2023-05-26 15:47 | Outpatient (BNVA) | payer OTHER, SELFPAY | PROVIDERS: PCP Family Medicine; Visit Provider Anesthesiology | DX: Z45.1 Encounter for adjustment and management of infusion pump (principal); G89.4 Chronic pain syndrome; G62.9 Polyneuropathy, unspecified; M15.9 Polyosteoarthritis, unspecified; M96.1 Postlaminectomy syndrome, not elsewhere classified; M79.671 Pain in right foot; M79.672 Pain in left foot | CPT/HCPCS: 62368 ==

== ENCOUNTER 2023-06-02 15:02 | Outpatient (AMB) | payer OTHER, SELFPAY ==
--- NOTE | 2023-06-02 15:25 | MHC.OFFVIS ---
Intake Vital Signs 06/02/23 15:31 Height 6 ft Weight 218 lb BMI 29.6 BP 138/63 Blood Pressure Location Lt brachial Position Sitting Respiration 14 Pulse 69 Pulse Source Pulse Oximeter Pulse Oximetry (%) 94 Oxygen Delivery Method Room Air Intake Visit Reasons: ITDD Refill/confirmed Allergies aspirin Adverse Reaction (Unknown, Verified 06/02/23 15:38) Unknown HPI HPI Comments History of Present Illness Details Zheng is here today for pump Interrogation after the MRI. It appears to be that the device is working appropriately. The pump refill is 06/02/2023. I will see this patient at that time. He is currently on hydromorphone 200 micro g per mL and bupivacaine 6 milligrams/mL new batch of medication is not different from the previous medicine. She reports pain improvement on application of PTM device however he would like to have his pain relieve better. He reports significant pain in bilateral knees secondary to advanced osteoarthritis of bilateral knees. [place] [facility] planning to do total knee replacement on her in near future. I explained to him that pain pump is not going to help with his condition. The pain pump was refilled today as below and doses were changed slightly I increased his demand medication PTM hydromorphone from 80 micro g per application to 92 micro g per application. Next time she is here I will increase the concentration of the bupivacaine to 12.0 mg per mL that effectively will double the does of bupivacaine and may improve his pain significantly. Prolonged and detailed discussion started about -his future surgery on bilateral knees. I explained to him all details of the surgery and I offered my services with discussion of his anesthetic with his anesthesiologist in [facility]. Pain pump implant was performed on 10/17/2022. PRIOR: Patient is a 72 years old male with history of right lower lumbar radiculopathy, L5-S1 right microlumbar discectomy and bilateral lateral decompression, bilateral hip replacements, feet ulcers with skin grafting, percutaneous dorsal column Boothe SCS and most recent right femur fracture presents today with severe neuropathic pain in both of his feet and ankles and widespread pain in his body. He is accompanied by his and his daughter is also present via phone speaker to assist with history intake. Patient arrived by wheelchair today due to stress fracture healing but has been using a walker for transfers and ambulation prior to this. Femur stress fracture is currently managed by [facility]. Pain is described as intermittent pulsing, throbbing, pounding, dull, sore, hurting, aching, heavy and stinging. Pain ranges from 5/10 to 9/10 in severity in the past 2 weeks. Patient reports his pain has been worsening over the past 4 years. He was followed by [facility] and received multiple injections for lumbar spinal stenosis with neurogenic claudication, physical therapy, chiropractic manipulation therapy, topical compound cream and medical management with opioid and non-opioid medications. He also tried yoga, heat and ice therapy and over the counter topical application without relief. Currently, patient is taking oxycodone 5 mg tid-qid for femur stress fracture, gabapentin 2400 mg/day and Naproxen prn. Also tried duloxetine and amitriptyline in the past with minimal effects. Patient was counseled in the past to avoid Lyrica and acetaminophen due to Hepatitis C. Patient reports SCS implant has been working well for the back but not for his feet. His program settings were readjusted many times but could not achieve reduction in lower legs and feet pain. SCS implant device was last adjusted on 03/2022. Reports progressive bilateral lower extremity weakness over the past 4 years. Patient denies bowel or bladder incontinence or saddle anesthesia. Patient reports history of DVT in his leg, cannot recall which side and location and reports history of 9 week hospitalization in 02/2021 for foot ulcers related to osteomyelitis and required skin grafts. He reports constant stinging pain in the mornings in the dorsal aspects of both feet. Patient denies diabetes mellitus. Patient is a former smoker. He used to see vascular surgeon Dr. Roman at [facility] for DVT with last visit over a year ago. Patient has significant discoloration of both feet with cold to touch, pale lower legs, absent hair growth and color changes in both dorsal surfaces of both feet. Diminished pulses with delayed capillary refill especially in his left 2nd toe which patient reports at times goes ?completely dark.? Patient presents with decreased sensation to plantar and dorsal surfaces. Reports rest and claudication pain. Patient reports constant stabbing, aching and burning pain in both feet. 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 Similar but milder neuropathy affecting upper extremities. This EMG study did not suggest demyelinating type of neuropathy. EMG study for noted for chronic right lower lumbar radiculopathy and chronic right mid to lower cervical radiculopathy. Lumbar spine MRI 12/07/21 showed moderate multilevel degenerative spondyloarthropathy of the lumbar spine and moderate to severe neural foraminal stenoses from L1-S1. Patient denies any specific cervical or lumbar pain today and is interested in interventional treatments to alleviate his ?both feet nerve pain? and increase strength in lower extremities with walking. [facility] Medical History Abdominal tenderness Actinic keratosis Anxiety Chronic pain syndrome Constipated Degenerative joint disease involving multiple joints Depression Failed back syndrome, lumbosacral Foot pain, bilateral Functional diarrhea Hard of hearing Hypertensive disorder Leg edema Lumbar disc disease Nicotine dependence Osteoarthritis Peripheral artery disease Peripheral neuropathy Raynauds disease Seborrheic dermatitis Viral hepatitis C Surgical History H/O splenectomy History of appendectomy History of back surgery History of total hip replacement Social History Alcohol intake: current Alcohol intake frequency: does not drink Patient Tobacco Use Status: Current everyday Tobacco user Tobacco use type: Cigarette Cigarette Packs Per Day: 0.5 Cigarettes Per Day: 10.0 Review of Systems Const All systems reviewed & are unremarkable except as noted in HPI and below Physical Exam Vital Signs: Last Vital Signs Pulse 69 06/02/23 15:31 Resp 14 06/02/23 15:31 BP 138/63 06/02/23 15:31 Pulse Ox 94 06/02/23 15:31 Oxygen Delivery Method Room Air 06/02/23 15:31 BMI result Body Mass Index 29.6 Assessment & Plan Assessment & Plan (1) Chronic pain syndrome: Code(s): G89.4 - Chronic pain syndrome (2) Peripheral neuropathy: Code(s): G62.9 - Polyneuropathy, unspecified (3) Degenerative joint disease involving multiple joints: Code(s): M15.9 - Polyosteoarthritis, unspecified Plan: He reports good pain relieve now. He will be receiving 90 micro g of hydromorphone a day as well as 80 micro g of hydromorphone every 4 hours p.r.n. pain intrathecally. Now hydromorphone will be giving to him with corresponding doses of the bupivacaine. This might improve his arthritic pain in the lower extremities. (4) Failed back syndrome, lumbosacral: Code(s): M96.1 - Postlaminectomy syndrome, not elsewhere classified Plan: ? Intrathecal pump refill. THE PATIENT CAME TODAY IN THE OR - PACU FOR THE CHANGE OF THE MEDICATION IN her PAIN PUMP. The name and date of were verified and informed consent was obtained for the procedure. ?The pump was interrogated and the residual amount of fluid was found to be 3.2 mL. HE WAS POSITIONED prone on the bed AND THE AREA OF THE INTRATHECAL PUMP WAS PREPPED WITH CHLORAPREP. The fenestrated drape was sterilely applied over the area of the pump. Sterile gloves were worn and of the aspiration system was assembled containing 2 in 22 gauge noncoring needle, the needle was connected to extension tubing which was connected to the 20 cc sterile syringe. The pain pump was palpated under the skin in the patient's right buttock area. The needle was inserted through the skin and the central plug of the pain pump and fluid was aspirated. The clear fluid was going into the syringe the total amount of the fluid was 3.2 mL .. After that a new batch? of medication was obtained which was containing hydromorphone in concentration 2000 micro g/ml and 6 mg/ml of bupivacaine. . The admixture was made in 20 cc syringe prepared by [facility] compounding pharmacy. The syringe was connected to the bacterial filter, and then connected to the extension tubing. After that the medication in the syringe was slowly instilled into the pump with aspirations at 15 and 5 cc raymond.? The pump was reprogrammed for the doses of continuous hydromorphone of 90 mcg a day, he is also is reprogrammed to receive 90 micro g of Dilaudid with corresponding doses of the bupivacaine on demand 4 times a day with lockout interval of 4 hours. The medication will be administered over 5 minutes . Bridge bolus was also program for 88 hours. (5) Foot pain, bilateral: Code(s): M79.671 - Pain in right foot; M79.672 - Pain in left foot Plan Next pump refill will be done on or before 08/16/2023. Future surgery on bilateral knees can be discussed with the anesthesiologist and the surgeon at [facility]. His surgeon is part of [facility]. Next pump refill I will increase concentration of bupivacaine from 6 milligrams/mL to 12 milligrams/mL this will hopefully increase his satisfaction with the pain relief. I also explained to him that notice septi of/inflammatory pain in bilateral knees will not be helped by the pain pump. Patient Instructions: I here by testify that I spent 30 minutes in conversation with this patient as well as evaluating his prior medications, planning his care, organizing his note. Coding Level of Care Code Est Pt Level 4 (89050) Procedure Only Diagnoses Chronic pain syndrome G89.4 Peripheral neuropathy G62.9 Degenerative joint disease involving multiple joints M15.9 Failed back syndrome, lumbosacral M96.1 Foot pain, bilateral M79.671; M79.672
[2023-06-02 15:31] VITALS: BP 138/63; PULSE 69; RESP 14; O2SAT 94; BMI 29.6
== END 2023-06-02 15:40 | disposition home or self-care (01) ==
PROVIDERS: PCP Family Medicine; Visit Provider Anesthesiology
DX: G89.4 Chronic pain syndrome (principal); G62.9 Polyneuropathy, unspecified; M15.9 Polyosteoarthritis, unspecified; Z45.1 Encounter for adjustment and management of infusion pump; M96.1 Postlaminectomy syndrome, not elsewhere classified; M79.671 Pain in right foot; M79.672 Pain in left foot
CPT/HCPCS: 62370; 99214

== ENCOUNTER → 2023-06-02 15:02 | Outpatient (BNVA) | payer OTHER, SELFPAY | PROVIDERS: PCP Family Medicine; Visit Provider Anesthesiology | DX: Z45.1 Encounter for adjustment and management of infusion pump (principal); G62.9 Polyneuropathy, unspecified; G89.4 Chronic pain syndrome; M79.672 Pain in left foot; M79.671 Pain in right foot; M15.9 Polyosteoarthritis, unspecified; M96.1 Postlaminectomy syndrome, not elsewhere classified | CPT/HCPCS: 62370 ==

== ENCOUNTER 2023-08-18 15:13 | Outpatient (AMB) | payer OTHER, SELFPAY ==
--- NOTE | 2023-08-18 15:30 | A.OFFVIS_ITS ---
Intake Vital Signs 08/18/23 16:06 Height 6 ft Weight 218 lb BMI 29.6 BP 140/66 H Blood Pressure Location Lt brachial Position Sitting Respiration 12 Pulse 77 Pulse Source Pulse Oximeter Pulse Oximetry (%) 94 Oxygen Delivery Method Room Air Intake Visit Reasons: ITDD REFILL Intake Note: Patient comes in for intrathecal medication refill. Reports pain 02/03. Allergies aspirin Adverse Reaction (Unknown, Verified 08/18/23 16:08) Unknown [facility] Medical History Abdominal tenderness Actinic keratosis Anxiety Chronic pain syndrome Constipated Degenerative joint disease involving multiple joints Depression Failed back syndrome, lumbosacral Foot pain, bilateral Functional diarrhea Hard of hearing Hypertensive disorder Leg edema Lumbar disc disease Nicotine dependence Osteoarthritis Peripheral artery disease Peripheral neuropathy Raynauds disease Seborrheic dermatitis Viral hepatitis C Surgical History H/O splenectomy History of appendectomy History of back surgery History of total hip replacement Social History Alcohol intake: current Alcohol intake frequency: does not drink Patient Tobacco Use Status: Current everyday Tobacco user Tobacco use type: Cigarette Cigarette Packs Per Day: 0.5 Cigarettes Per Day: 10.0 Physical Exam Vital Signs: Last Vital Signs Pulse 77 08/18/23 16:06 Resp 12 08/18/23 16:06 BP 140/66 H 08/18/23 16:06 Pulse Ox 94 08/18/23 16:06 Oxygen Delivery Method Room Air 08/18/23 16:06 BMI result Body Mass Index 29.6 Assessment & Plan Assessment & Plan (1) Chronic pain syndrome: Code(s): G89.4 - Chronic pain syndrome (2) Peripheral neuropathy: Code(s): G62.9 - Polyneuropathy, unspecified (3) Degenerative joint disease involving multiple joints: Code(s): M15.9 - Polyosteoarthritis, unspecified Plan: Reports significant pain in bilateral lower extremities secondary to arthritis. I explained to him that pain pump unlikely will help with arthritis pain however increase concentration of bupivacaine from 6 milligrams/mL to 12 milligrams/mL actually may help his neuropathy pain. (4) Failed back syndrome, lumbosacral: Code(s): M96.1 - Postlaminectomy syndrome, not elsewhere classified Plan: ? Intrathecal pump refill. THE PATIENT CAME TODAY IN THE OR - PACU FOR THE CHANGE OF THE MEDICATION IN her PAIN PUMP. The name and date of were verified and informed consent was obtained for the procedure. ?The pump was interrogated and the residual amount of fluid was found to be 1.7 mL. HE WAS POSITIONED prone on the bed AND THE AREA OF THE INTRATHECAL PUMP WAS PREPPED WITH CHLORAPREP. The fenestrated drape was sterilely applied over the area of the pump. Sterile gloves were worn and of the aspiration system was assembled containing 2 in 22 gauge noncoring needle, the needle was connected to extension tubing which was connected to the 20 cc sterile syringe. The pain pump was palpated under the skin in the patient's right buttock area. The needle was inserted through the skin and the central plug of the pain pump and fluid was aspirated. The clear fluid was going into the syringe the total amount of the fluid was 2.0 mL .. After that a new batch? of medication was obtained which was containing hydromorphone in concentration 2000 micro g/ml and 6 mg/ml of bupivacaine. . The admixture was made in 20 cc syringe prepared by [facility] compounding pharmacy. The syringe was connected to the bacterial filter, and then connected to the extension tubing. After that the medication in the syringe was slowly instilled into the pump with aspirations at 15 and 5 cc raymond.? The pump was reprogrammed for the doses of continuous hydromorphone of 90 mcg a day, he is also is reprogrammed to receive 90 micro g of Dilaudid with corresponding doses of the bupivacaine on demand 4 times a day with lockout interval of 4 hours. The medication will be administered over 5 minutes . Bridge bolus was also program for 84 hours. (5) Foot pain, bilateral: Code(s): M79.671 - Pain in right foot; M79.672 - Pain in left foot Plan Next pump refill will be done on or before 08/16/2023. Future surgery on bilateral knees can be discussed with the anesthesiologist and the surgeon at [facility]. His surgeon is part of [place] [facility]. Next pump refill I will increase concentration of bupivacaine from 6 milligrams/mL to 12 milligrams/mL this will hopefully increase his satisfaction with the pain relief. I also explained to him that notice septi of/inflammatory pain in bilateral knees will not be helped by the pain pump. Coding Level of Care Code Procedure Only Diagnoses Chronic pain syndrome G89.4 Peripheral neuropathy G62.9 Degenerative joint disease involving multiple joints M15.9 Failed back syndrome, lumbosacral M96.1 Foot pain, bilateral M79.671; M79.672
[2023-08-18 16:06] VITALS: BP 140/66; PULSE 77; RESP 12; O2SAT 94; BMI 29.6
== END 2023-08-18 15:57 | disposition home or self-care (01) ==
PROVIDERS: PCP Family Medicine; Visit Provider Anesthesiology
DX: Z45.1 Encounter for adjustment and management of infusion pump (principal); G89.4 Chronic pain syndrome; G62.9 Polyneuropathy, unspecified; M15.9 Polyosteoarthritis, unspecified; M96.1 Postlaminectomy syndrome, not elsewhere classified; M79.671 Pain in right foot; M79.672 Pain in left foot
CPT/HCPCS: 62370

== ENCOUNTER → 2023-08-18 15:13 | Outpatient (BNVA) | payer OTHER, SELFPAY | PROVIDERS: PCP Family Medicine; Visit Provider Anesthesiology | DX: Z45.1 Encounter for adjustment and management of infusion pump (principal); G89.4 Chronic pain syndrome; M96.1 Postlaminectomy syndrome, not elsewhere classified; G62.9 Polyneuropathy, unspecified; M15.9 Polyosteoarthritis, unspecified | CPT/HCPCS: 62370 ==

== ENCOUNTER 2023-11-11 06:08 | Outpatient (REF) | payer OTHER, SELFPAY | END 2023-11-11 06:09 | disposition home or self-care (01) | LOC: CF 06:08 | PROVIDERS: Visit Provider Anesthesiology | DX: G62.9 Polyneuropathy, unspecified (principal); M15.9 Polyosteoarthritis, unspecified; G89.4 Chronic pain syndrome; M79.671 Pain in right foot; M79.672 Pain in left foot | CPT/HCPCS: 62370 ==

== ENCOUNTER 2023-11-11 12:54 | Outpatient (AMB) | payer OTHER, SELFPAY ==
[2023-11-11 13:23] VITALS: BP 124/68; PULSE 64; RESP 16; O2SAT 94; BMI 29.6
--- NOTE | 2023-11-11 13:23 | A.OFFVIS_ITS ---
Intake Vital Signs 11/11/23 13:23 Height 6 ft Weight 218 lb BMI 29.6 BP 124/68 Blood Pressure Location Lt brachial Position Sitting Respiration 16 Pulse 64 Pulse Source Pulse Oximeter Pulse Oximetry (%) 94 Oxygen Delivery Method Room Air Intake Visit Reasons: ITDD REFILL Allergies aspirin Adverse Reaction (Unknown, Verified 08/18/23 16:08) Unknown [facility] Medical History Abdominal tenderness Actinic keratosis Anxiety Chronic pain syndrome Constipated Degenerative joint disease involving multiple joints Depression Failed back syndrome, lumbosacral Foot pain, bilateral Functional diarrhea Hard of hearing Hypertensive disorder Leg edema Lumbar disc disease Nicotine dependence Osteoarthritis Peripheral artery disease Peripheral neuropathy Raynauds disease Seborrheic dermatitis Viral hepatitis C Surgical History H/O splenectomy History of appendectomy History of back surgery History of total hip replacement Social History Alcohol intake: current Alcohol intake frequency: does not drink Patient Tobacco Use Status: Current everyday Tobacco user Tobacco use type: Cigarette Cigarette Packs Per Day: 0.5 Cigarettes Per Day: 10.0 Physical Exam Vital Signs: Last Vital Signs Pulse 64 11/11/23 13:23 Resp 16 11/11/23 13:23 BP 124/68 11/11/23 13:23 Pulse Ox 94 11/11/23 13:23 Oxygen Delivery Method Room Air 11/11/23 13:23 BMI result Body Mass Index 29.6 Assessment & Plan Assessment & Plan (1) Chronic pain syndrome: Code(s): G89.4 - Chronic pain syndrome (2) Peripheral neuropathy: Code(s): G62.9 - Polyneuropathy, unspecified (3) Degenerative joint disease involving multiple joints: Code(s): M15.9 - Polyosteoarthritis, unspecified (4) Failed back syndrome, lumbosacral: Code(s): M96.1 - Postlaminectomy syndrome, not elsewhere classified Plan: ? Intrathecal pump refill. THE PATIENT CAME TODAY IN THE OR - PACU FOR THE CHANGE OF THE MEDICATION IN her PAIN PUMP. The name and date of were verified and informed consent was obtained for the procedure. ?The pump was interrogated and the residual amount of fluid was found to be 0.3 mL. HE WAS POSITIONED prone on the bed AND THE AREA OF THE INTRATHECAL PUMP WAS PREPPED WITH CHLORAPREP. The fenestrated drape was sterilely applied over the area of the pump. Sterile gloves were worn and of the aspiration system was assembled containing 2 in 22 gauge noncoring needle, the needle was connected to extension tubing which was connected to the 20 cc sterile syringe. The pain pump was palpated under the skin in the patient's right buttock area. The needle was inserted through the skin and the central plug of the pain pump and fluid was aspirated. The clear fluid was going into the syringe the total amount of the fluid was 0.5 mL .. After that a new batch? of medication was obtained which was containing hydromorphone in concentration 2000 micro g/ml and 6 mg/ml of bupivacaine. . The admixture was made in 20 cc syringe [facility]. The syringe was connected to the bacterial filter, and then connected to the extension tubing. After that the medication in the syringe was slowly instilled into the pump with aspirations at 15 and 5 cc raymond.? The pump was reprogrammed for the doses of continuous hydromorphone of 90 mcg a day, he is also is reprogrammed to receive 90 micro g of Dilaudid with corresponding doses of the bupivacaine on demand 4 times a day with lockout interval of 4 hours. The medication will be administered over 5 minutes . Bridge bolus was also program for 84 hours. (5) Foot pain, bilateral: Code(s): M79.671 - Pain in right foot; M79.672 - Pain in left foot Plan Next pump refill will be done on or before 08/16/2023. Future surgery on bilateral knees can be discussed with the anesthesiologist and the surgeon at [facility]. His surgeon is part of [place] [facility]. Next pump refill I will increase concentration of bupivacaine from 6 milligrams/mL to 12 milligrams/mL this will hopefully increase his satisfaction with the pain relief. I also explained to him that notice septi of/inflammatory pain in bilateral knees will not be helped by the pain pump. Coding Level of Care Code Procedure Only Diagnoses Chronic pain syndrome G89.4 Peripheral neuropathy G62.9 Degenerative joint disease involving multiple joints M15.9 Failed back syndrome, lumbosacral M96.1 Foot pain, bilateral M79.671; M79.672
== END 2023-11-11 13:24 | disposition home or self-care (01) ==
LOC: HO.PMCPRC 12:54
PROVIDERS: PCP Family Medicine; Visit Provider Anesthesiology
DX: Z45.1 Encounter for adjustment and management of infusion pump (principal); G89.4 Chronic pain syndrome; G62.9 Polyneuropathy, unspecified; M15.9 Polyosteoarthritis, unspecified; M96.1 Postlaminectomy syndrome, not elsewhere classified; M79.671 Pain in right foot; M79.672 Pain in left foot
CPT/HCPCS: 62370

== ENCOUNTER 2023-12-11 15:21 | Outpatient (AMB) | payer OTHER, SELFPAY ==
--- NOTE | 2023-12-11 15:22 | A.OFFVIS_ITS ---
Intake Visit Reasons: discuss medication option Allergies aspirin Adverse Reaction (Unknown, Verified 12/11/23 15:22) Unknown HPI Comments Details: Zheng is on the phone today to discuss potential treatment for insomnia. He reports that he can not stay asleep through the night. He is asking my permission to try some cocy-eao-jnevrxg sleeping pills. I told him that for example Tylenol PM will be a good option to try if it will help him to sleep. I also explained to him that possibility exists of drug to drug interactions and respiratory depression even on this rather moderate doses of the Benadryl. Patient told me that he was willing to try. I responded that I will prescribe just in case to him naloxone intranasal and I explained to him the way to teach his relatives about this medication. Patient expressed understanding. I will see him for the next pump refill or sooner if he would like to be seen sooner. Prior: He is currently on hydromorphone 200 micro g per mL and bupivacaine 6 milligrams/mL new batch of medication is not different from the previous medicine. She reports pain improvement on application of PTM device however he would like to have his pain relieve better. He reports significant pain in bilateral knees secondary to advanced osteoarthritis of bilateral knees. [facility] planning to do total knee replacement on her in near future. I explained to him that pain pump is not going to help with his condition. The pain pump was refilled today as below and doses were changed slightly I increased his demand medication PTM hydromorphone from 80 micro g per application to 92 micro g per application. Next time she is here I will increase the concentration of the bupivacaine to 12.0 mg per mL that effectively will double the does of bupivacaine and may improve his pain significantly. Du pabon and detailed discussion started about -his future surgery on bilateral knees. I explained to him all details of the surgery and I offered my services with discussion of his anesthetic with his anesthesiologist in [facility]. Pain pump implant was performed on 10/17/2022. PRIOR: Patient is a 72 years old male with history of right lower lumbar radiculopathy, L5-S1 right microlumbar discectomy and bilateral lateral decompression, bilateral hip replacements, feet ulcers with skin grafting, percutaneous dorsal column Boothe SCS and most recent right femur fracture presents today with severe neuropathic pain in both of his feet and ankles and widespread pain in his body. He is accompanied by his and his daughter is also present via phone speaker to assist with history intake. Patient arrived by wheelchair today due to stress fracture healing but has been using a walker for transfers and ambulation prior to this. Femur stress fracture is currently managed by [facility]. Pain is described as intermittent pulsing, throbbing, pounding, dull, sore, hurting, aching, heavy and stinging. Pain ranges from 5/10 to 9/10 in severity in the past 2 weeks. Patient reports his pain has been worsening over the past 4 years. He was followed by [facility] and received multiple injections for lumbar spinal stenosis with neurogenic claudication, physical therapy, chiropractic manipulation therapy, topical compound cream and medical management with opioid and non-opioid medications. He also tried yoga, heat and ice therapy and over the counter topical application without relief. Currently, patient is taking oxycodone 5 mg tid-qid for femur stress fracture, gabapentin 2400 mg/day and Naproxen prn. Also tried duloxetine and amitriptyline in the past with minimal effects. Patient was counseled in the past to avoid Lyrica and acetaminophen due to Hepatitis C. Patient reports SCS implant has been working well for the back but not for his feet. His program settings were readjusted many times but could not achieve reduction in lower legs and feet pain. SCS implant device was last adjusted on 03/2022. Reports progressive bilateral lower extremity weakness over the past 4 years. Patient denies bowel or bladder incontinence or saddle anesthesia. Patient reports history of DVT in his leg, cannot recall which side and location and reports history of 9 week hospitalization in 02/2021 for foot ulcers related to osteomyelitis and required skin grafts. He reports constant stinging pain in the mornings in the dorsal aspects of both feet. Patient denies diabetes mellitus. Patient is a former smoker. He used to see vascular surgeon Dr. Roman at [facility] for DVT with last visit over a year ago. Patient has significant discoloration of both feet with cold to touch, pale lower legs, absent hair growth and color changes in both dorsal surfaces of both feet. Diminished pulses with delayed capillary refill especially in his left 2nd toe which patient reports at times goes ?completely dark.? Patient presents with decreased sensation to plantar and dorsal surfaces. Reports rest and claudication pain. Patient reports constant stabbing, aching and burning pain in both feet. 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 Similar but milder neuropathy affecting upper extremities. This EMG study did not suggest demyelinating type of neuropathy. EMG study for noted for chronic right lower lumbar radiculopathy and chronic right mid to lower cervical radiculopathy. Lumbar spine MRI 12/07/21 showed moderate multilevel degenerative spondyloarthropathy of the lumbar spine and moderate to severe neural foraminal stenoses from L1-S1. Patient denies any specific cervical or lumbar pain today and is interested in interventional treatments to alleviate his ?both feet nerve pain? and increase strength in lower extremities with walking. [facility] Medical History Abdominal tenderness Actinic keratosis Anxiety Chronic pain syndrome Constipated Degenerative joint disease involving multiple joints Depression Failed back syndrome, lumbosacral Foot pain, bilateral Functional diarrhea Hard of hearing Hypertensive disorder Leg edema Lumbar disc disease Nicotine dependence Osteoarthritis Peripheral artery disease Peripheral neuropathy Raynauds disease Seborrheic dermatitis Viral hepatitis C Surgical History H/O splenectomy History of appendectomy History of back surgery History of total hip replacement Social History Alcohol intake: current Alcohol intake frequency: does not drink Patient Tobacco Use Status: Current everyday Tobacco user Tobacco use type: Cigarette Cigarette Packs Per Day: 0.5 Cigarettes Per Day: 10.0 Review of Systems Const All systems reviewed & are unremarkable except as noted in HPI and below Telehealth Telehealth Telehealth Platform: Telephone Location of provider rendering services: practice address Location of patient: address on file Patient Identification confirmed using: Name, : Yes Telehealth method: voice only Patient verbally consented to treatment: Yes Patient verbally consented to billing insurance company: Yes Patient informed of any privacy concerns related to visit: Yes Assessment & Plan Assessment & Plan (1) Chronic pain syndrome: Code(s): G89.4 - Chronic pain syndrome Category: Medical (2) Peripheral neuropathy: Code(s): G62.9 - Polyneuropathy, unspecified Category: Medical (3) Degenerative joint disease involving multiple joints: Code(s): M15.9 - Polyosteoarthritis, unspecified Category: Medical (4) Failed back syndrome, lumbosacral: Code(s): M96.1 - Postlaminectomy syndrome, not elsewhere classified Category: Medical Plan: ? Intrathecal pump refill. (5) Foot pain, bilateral: Code(s): M79.671 - Pain in right foot; M79.672 - Pain in left foot Category: Medical Plan Discussion of the [id number] sleeping pills is as above. Narcan will be prescribed to the patient. Discussion about Narcan is as above. The patient understood and willing to try. Medications: Refilled naloxone 4 mg/actuation spray 1 dose into ONE nostril; alternate nostrils w each dose 4 mg intranasal Q3M 1 day PRN 2 ea 2RF opioid overdose Patient Instructions: I here by testify that I spent 20 minutes in conversation with this patient over the telephone as well as planning his care and organizing this note. Coding Level of Care Code Tele Est Pt Level 3 (87501) Diagnoses Chronic pain syndrome G89.4 Peripheral neuropathy G62.9 Degenerative joint disease involving multiple joints M15.9 Failed back syndrome, lumbosacral M96.1 Foot pain, bilateral M79.671; M79.672
== END 2023-12-11 15:27 | disposition home or self-care (01) ==
LOC: HO.PMC 15:21
PROVIDERS: PCP Family Medicine; Visit Provider Anesthesiology
DX: G89.4 Chronic pain syndrome (principal); G62.9 Polyneuropathy, unspecified; M15.9 Polyosteoarthritis, unspecified; M96.1 Postlaminectomy syndrome, not elsewhere classified; M79.671 Pain in right foot; M79.672 Pain in left foot
CPT/HCPCS: 99442

== ENCOUNTER → 2023-12-11 15:21 | Outpatient (BNVA) | payer OTHER, SELFPAY | PROVIDERS: PCP Family Medicine; Visit Provider Anesthesiology ==

== ENCOUNTER 2024-01-28 13:53 | Outpatient (AMB) | payer OTHER, SELFPAY ==
--- NOTE | 2024-01-28 13:56 | A.OFFVIS_ITS ---
Vital Signs 01/28/24 14:14 Height 6 ft Weight 218 lb BMI 29.6 BP 138/62 Blood Pressure Location Lt brachial Position Supine Respiration 14 Pulse 82 Pulse Source Pulse Oximeter Pulse Oximetry (%) 93 Oxygen Delivery Method Room Air Intake Visit Reasons: ITDD REFILL Intake Note: Patient comes in for intrathecal medication refill. Reports pain 7/10. Allergies aspirin Adverse Reaction (Unknown, Verified 01/28/24 14:14) Unknown HPI Comments Details: Zheng is here to refill his intrathecal pain pump. She reports appropriate pain relief from the device. He reports better mobility better activities of daily living better social interactions with the device. He is currently on admixture of hydromorphone and bupivacaine. Concentration of hydromorphone 2 milligrams/mL concentration of bupivacaine 12 milligrams/mL continuous dose of hydromorphone 96.1 micro g a day with corresponding 0.577 mg a day of bupivacaine. He is also on demand on 92 micro g on demand every 4 hours 4. boluses per day. His next pump refill is on 04/16/2024 or before that date. Pain pump implant was performed on 10/17/2022. PRIOR: Patient is a 72 years old male with history of right lower lumbar radiculopathy, L5-S1 right microlumbar discectomy and bilateral lateral decompression, bilateral hip replacements, feet ulcers with skin grafting, percutaneous dorsal column Boothe SCS and most recent right femur fracture presents today with severe neuropathic pain in both of his feet and ankles and widespread pain in his body. He is accompanied by his and his daughter is also present via phone speaker to assist with history intake. Patient arrived by wheelchair today due to stress fracture healing but has been using a walker for transfers and ambulation prior to this. Femur stress fracture is currently managed by [facility]. Pain is described as intermittent pulsing, throbbing, pounding, dull, sore, hurting, aching, heavy and stinging. Pain ranges from 5/10 to 9/10 in severity in the past 2 weeks. Patient reports his pain has been worsening over the past 4 years. He was followed by [facility] and received multiple injections for lumbar spinal stenosis with neurogenic claudication, physical therapy, chiropractic manipulation therapy, topical compound cream and medical management with opioid and non-opioid medications. He also tried yoga, heat and ice therapy and over the counter topical application without relief. Currently, patient is taking oxycodone 5 mg tid-qid for femur stress fracture, gabapentin 2400 mg/day and Naproxen prn. Also tried duloxetine and amitriptyline in the past with minimal effects. Patient was counseled in the past to avoid Lyrica and acetaminophen due to Hepatitis C. Patient reports SCS implant has been working well for the back but not for his feet. His program settings were readjusted many times but could not achieve reduction in lower legs and feet pain. SCS implant device was last adjusted on 03/2022. Reports progressive bilateral lower extremity weakness over the past 4 years. Patient denies bowel or bladder incontinence or saddle anesthesia. Patient reports history of DVT in his leg, cannot recall which side and location and reports history of 9 week hospitalization in 02/2021 for foot ulcers related to osteomyelitis and required skin grafts. He reports constant stinging pain in the mornings in the dorsal aspects of both feet. Patient denies diabetes mellitus. Patient is a former smoker. He used to see vascular surgeon Dr. Roman at [facility] for DVT with last visit over a year ago. Patient has significant discoloration of both feet with cold to touch, pale lower legs, absent hair growth and color changes in both dorsal surfaces of both feet. Diminished pulses with delayed capillary refill especially in his left 2nd toe which patient reports at times goes ?completely dark.? Patient presents with decreased sensation to plantar and dorsal surfaces. Reports rest and claudication pain. Patient reports constant stabbing, aching and burning pain in both feet. 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 Similar but milder neuropathy affecting upper extremities. This EMG study did not suggest demyelinating type of neuropathy. EMG study for noted for chronic right lower lumbar radiculopathy and chronic right mid to lower cervical radiculopathy. Lumbar spine MRI 12/07/21 showed moderate multilevel degenerative spondyloarthropathy of the lumbar spine and moderate to severe neural foraminal stenoses from L1-S1. Patient denies any specific cervical or lumbar pain today and is interested in interventional treatments to alleviate his ?both feet nerve pain? and increase strength in lower extremities with walking. [facility] Medical History Abdominal tenderness Actinic keratosis Anxiety Chronic pain syndrome Constipated Degenerative joint disease involving multiple joints Depression Failed back syndrome, lumbosacral Foot pain, bilateral Functional diarrhea Hard of hearing Hypertensive disorder Leg edema Lumbar disc disease Nicotine dependence Osteoarthritis Peripheral artery disease Peripheral neuropathy Raynauds disease Seborrheic dermatitis Viral hepatitis C Surgical History H/O splenectomy History of appendectomy History of back surgery History of total hip replacement Social History Alcohol intake: current Alcohol intake frequency: does not drink Patient Tobacco Use Status: Current everyday Tobacco user Tobacco use type: Cigarette Cigarette Packs Per Day: 0.5 Cigarettes Per Day: 10.0 Review of Systems Const All systems reviewed & are unremarkable except as noted in HPI and below ENT Reports Normal hearing present Neuro Reports Normal hearing present Physical Exam Vital Signs: Last Vital Signs Pulse 82 01/28/24 14:14 Resp 14 01/28/24 14:14 BP 138/62 01/28/24 14:14 Pulse Ox 93 01/28/24 14:14 Oxygen Delivery Method Room Air 01/28/24 14:14 BMI result Body Mass Index 29.6 General: Appears afebrile. Alert and oriented. Mood and affect appropriate. Follows and participates in conversation appropriately. Respiratory effort is unlabored. Able to transition from sit to stand with assistance of walker. Ambulates with bilaterally normal heel strike and toe off. Back/Spine/Pelvis Other: The dressing was removed. No pathological discharge, tenderness, redness, bruisi ng or erythema noted in both incisions. The incisions were washed with ChloraPrep and mesha were removed. Steri strips were applied to battery pocket site incision. The incisions were washed with ChloraPrep again and dressed with bacitracin ointment, sterile dry gauze and Tegaderm film. Cervical Spine: No Cervical spine tenderness Thoracic/Lumbar Spine: thoracic and lumbar spine normal to inspection, Thoracic/lumbar spine scar(s), thoraco-lumbar ROM limited, No thoracic spinal tenderness and No lumbar spinal tenderness Neuro Cranial nerves: Yes Normal hearing present Assessment & Plan Assessment & Plan (1) Chronic pain syndrome: Code(s): G89.4 - Chronic pain syndrome Category: Medical (2) Peripheral neuropathy: Code(s): G62.9 - Polyneuropathy, unspecified Category: Medical (3) Degenerative joint disease involving multiple joints: Code(s): M15.9 - Polyosteoarthritis, unspecified Category: Medical (4) Failed back syndrome, lumbosacral: Code(s): M96.1 - Postlaminectomy syndrome, not elsewhere classified Category: Medical Plan: ? Intrathecal pump refill. THE PATIENT CAME TODAY IN THE OR - PACU FOR THE CHANGE OF THE MEDICATION IN her PAIN PUMP. The name and date of were verified and informed consent was obtained for the procedure. ?The pump was interrogated and the residual amount of fluid was found to be 1.5 mL. HE WAS POSITIONED prone on the bed AND THE AREA OF THE INTRATHECAL PUMP WAS PREPPED WITH CHLORAPREP. The fenestrated drape was sterilely applied over the area of the pump. Sterile gloves were worn and of the aspiration system was assembled containing 2 in 22 gauge noncoring needle, the needle was connected to extension tubing which was connected to the 20 cc sterile syringe. The pain pump was palpated under the skin in the patient's right buttock area. The needle was inserted through the skin and the central plug of the pain pump and fluid was aspirated. The clear fluid was going into the syringe the total amount of the fluid was 0.5 mL .. After that a new batch? of medication was obtained which was containing hydromorphone in concentration 2000 micro g/ml and 6 mg/ml of bupivacaine. . The admixture was made in 20 cc syringe prepared by [facility] compounding pharmacy. The syringe was connected to the bacterial filter, and then connected to the extension tubing. After that the medication in the syringe was slowly instilled into the pump with aspirations at 15 and 5 cc raymond.? The pump was reprogrammed for the doses of continuous hydromorphone o 96.1 mcg a day, he is also is reprogrammed to receive 92 micro g of Dilaudid with corresponding doses of the bupivacaine on demand 4 times a day with lockout interval of 4 hours. The medication will be administered over 5 minutes . (5) Foot pain, bilateral: Code(s): M79.671 - Pain in right foot; M79.672 - Pain in left foot Category: Medical Plan Next pump refill will be done on or before 04/16/24 No issue at this refill. Coding Level of Care Code Est Pt Level 3 (38199) Procedure Only Diagnoses Chronic pain syndrome G89.4 Peripheral neuropathy G62.9 Degenerative joint disease involving multiple joints M15.9 Failed back syndrome, lumbosacral M96.1 Foot pain, bilateral M79.671; M79.672
[2024-01-28 14:14] VITALS: BP 138/62; PULSE 82; RESP 14; O2SAT 93; BMI 29.6
== END 2024-01-28 14:38 | disposition home or self-care (01) ==
PROVIDERS: PCP Family Medicine; Visit Provider Anesthesiology
DX: G89.4 Chronic pain syndrome (principal); G62.9 Polyneuropathy, unspecified; M15.9 Polyosteoarthritis, unspecified; M96.1 Postlaminectomy syndrome, not elsewhere classified; Z45.1 Encounter for adjustment and management of infusion pump
CPT/HCPCS: 62370; 99213

== ENCOUNTER → 2024-01-28 13:53 | Outpatient (BNVA) | payer OTHER, SELFPAY | PROVIDERS: PCP Family Medicine; Visit Provider Anesthesiology | DX: Z45.1 Encounter for adjustment and management of infusion pump (principal); G89.4 Chronic pain syndrome; G62.9 Polyneuropathy, unspecified; M15.9 Polyosteoarthritis, unspecified; M96.1 Postlaminectomy syndrome, not elsewhere classified | CPT/HCPCS: 62370 ==

== ENCOUNTER 2024-04-16 11:31 | Outpatient (AMB) | payer OTHER, SELFPAY ==
--- NOTE | 2024-04-16 11:40 | A.OFFVIS_ITS ---
Vital Signs 04/16/24 11:44 Height 6 ft Weight 218 lb BMI 29.6 BP 139/67 Blood Pressure Location Lt brachial Position Sitting Respiration 16 Pulse 72 Pulse Source Pulse Oximeter Pulse Oximetry (%) 91 L Oxygen Delivery Method Room Air Intake Visit Reasons: ITDD refill Allergies aspirin Adverse Reaction (Unknown, Verified 04/16/24 11:47) Unknown Medication List - Last Reconciled 04/16/24 by Renetta Hairston LPN cholecalciferol (vitamin D3) 75 mcg PO DAILY clonidine HCl 0.05 mg (1/2 x 0.1 mg) PO TID PRN 3 days diltiazem HCl CD 120 mg PO DAILY gabapentin 1,200 mg PO BID hydromorphone 2 mg PO Q8H PRN 2 days hydroxyzine HCl 25 mg PO TID PRN 3 days linaclotide (Linzess) 290 mcg PO DAILY naloxone 4 mg/actuation 4 mg intranasal Q3M PRN 1 day naproxen 500 mg PO BID omega 2-zfb-agq-fish oil 100-160-1,000 mg (Fish Oil) caps PO paroxetine HCl 60 mg PO DAILY HPI HPI ITDD refill: Details: 74-year-old male who presents today to the office for a ITDD refill. Denies any recent cough, cold, infection, fever or other significant changes in medical history since last office visit.? [facility] Medical History Abdominal tenderness Actinic keratosis Anxiety Chronic pain syndrome Constipated Degenerative joint disease involving multiple joints Depression Failed back syndrome, lumbosacral Foot pain, bilateral Functional diarrhea Hard of hearing Hypertensive disorder Leg edema Lumbar disc disease Nicotine dependence Osteoarthritis Peripheral artery disease Peripheral neuropathy Raynauds disease Seborrheic dermatitis Viral hepatitis C Surgical History H/O splenectomy History of appendectomy History of back surgery History of total hip replacement Social History Alcohol intake: current Alcohol intake frequency: does not drink Patient Tobacco Use Status: Current everyday Tobacco user Tobacco use type: Cigarette Cigarette Packs Per Day: 0.5 Cigarettes Per Day: 10.0 Review of Systems Const All systems reviewed & are unremarkable except as noted in HPI and below Physical Exam Vital Signs: Last Vital Signs Pulse 72 04/16/24 11:44 Resp 16 04/16/24 11:44 BP 139/67 04/16/24 11:44 Pulse Ox 91 L 04/16/24 11:44 Oxygen Delivery Method Room Air 04/16/24 11:44 BMI result Body Mass Index 29.6 General: Appears afebrile. Alert and oriented. Mood and affect appropriate. Follows and participates in conversation appropriately. Respiratory effort is unlabored. Able to transition from sit to stand unassisted. Ambulates with bilaterally normal heel strike and toe off. Office Procedures Details: The name and date of were verified, and informed consent was obtained for the procedure. The pump was interrogated, and the residual amount of fluid was found and jamie delbert. Patient was positioned prone on the bed and the area of the intrathecal pump was prepped with chloraprep. The fenestrated drape was sterilely applied over the area of the pump. Sterile gloves were worn and the aspiration system was assembled containing 2 22-gauge noncoring needle; the needle was connected to extension tubing which was connected to the 20-cc sterile syringe. The extension tubing was clamped. The pain pump was palpated under the skin in the patient's buttock. The needle was inserted through the skin and the central plug of the pain pump and fluid was aspirated. 9 mL of clear fluid were aspirated. After that, a new batch of medication was obtained. The admixture was premixed in a syringe by [facility] compounding pharmacy. The syringe was connected to the bacterial filter, and then connected to the extension tubing. After that, the medication in the syringe was slowly instilled into the pump. The pump was programmed and updated per the latest parameters. The details of th is program are available in the pump log that was saved and uploaded to the EMR. 54063 - Refill Procedure code (CPT) selection complete Results Reviewed Results Reviewed: No imaging is available for review. Assessment & Plan Assessment & Plan (1) Failed back syndrome, lumbosacral: Code(s): M96.1 - Postlaminectomy syndrome, not elsewhere classified Category: Medical (2) Chronic pain syndrome: Code(s): G89.4 - Chronic pain syndrome Category: Medical Plan Patient is status post refill of ITDD. Patient tolerated procedure well and was discharged home in stable condition with discharge instructions.? All questions were answered. Scribed for Dr. Bingham by Oj Mcfarland, medical driver, on 04/16/2024. I, Dr. Bingham, have personally reviewed and agree with the information entered by the scribe. Coding Level of Care Code Procedure Only Diagnoses Failed back syndrome, lumbosacral M96.1 Chronic pain syndrome G89.4 CPT Codes Intraethecal Drug Delivery System - CPT: 70529 - Refill ([id number])
[2024-04-16 11:44] VITALS: BP 139/67; PULSE 72; RESP 16; O2SAT 91; BMI 29.6
== END 2024-04-16 12:14 | disposition home or self-care (01) ==
PROVIDERS: PCP Family Medicine; Visit Provider Internal Medicine
DX: G89.4 Chronic pain syndrome (principal); M96.1 Postlaminectomy syndrome, not elsewhere classified; Z45.1 Encounter for adjustment and management of infusion pump
CPT/HCPCS: 62370

== ENCOUNTER → 2024-04-16 11:31 | Outpatient (BNVA) | payer OTHER, SELFPAY | PROVIDERS: PCP Family Medicine; Visit Provider Internal Medicine | DX: Z45.1 Encounter for adjustment and management of infusion pump (principal); M96.1 Postlaminectomy syndrome, not elsewhere classified; G89.4 Chronic pain syndrome | CPT/HCPCS: 62370 ==

== ENCOUNTER 2024-07-05 15:50 | Outpatient (AMB) | payer OTHER, SELFPAY ==
--- NOTE | 2024-07-05 15:46 | MHC.OFFVIS ---
Vital Signs 07/05/24 16:34 Height 6 ft Weight 216 lb BMI 29.3 BP 146/91 H Blood Pressure Location Lt brachial Position Sitting Pulse 81 Pulse Source Pulse Oximeter Pulse Oximetry (%) 94 Oxygen Delivery Method Room Air Intake Visit Reasons: ITDD pump fill Intake Note: Pain today 02/03 [facility] Required: No Accompanied by: Daughter Allergies aspirin Adverse Reaction (Unknown, Verified 07/05/24 16:34) Unknown HPI Comments Details: Zheng is here to refill his intrathecal pain pump. He requests me to increase his on demand dose. I agree with him we will increase the dose from 90 micro g per application to 128 micro g per application. The concentration of the medication stayed the same hydromorphone 2000 micro g per mL and bupivacaine 12 milligrams/mL. He will continue to receive 96 micro g continuous dose with corresponding dose of bupivacaine His next pump refill is o pump refill is on 09/05/2024 Pain pump implant was performed on 10/17/2022. PRIOR: Patient is a 72 years old male with history of right lower lumbar radiculopathy, L5-S1 right microlumbar discectomy and bilateral lateral decompression, bilateral hip replacements, feet ulcers with skin grafting, percutaneous dorsal column Boothe SCS and most recent right femur fracture presents today with severe neuropathic pain in both of his feet and ankles and widespread pain in his body. He is accompanied by his and his daughter is also present via phone speaker to assist with history intake. Patient arrived by wheelchair today due to stress fracture healing but has been using a walker for transfers and ambulation prior to this. Femur stress fracture is currently managed by [facility]. Pain is described as intermittent pulsing, throbbing, pounding, dull, sore, hurting, aching, heavy and stinging. Pain ranges from 5/10 to 9/10 in severity in the past 2 weeks. Patient reports his pain has been worsening over the past 4 years. He was followed by [facility] and received multiple injections for lumbar spinal stenosis with neurogenic claudication, physical therapy, chiropractic manipulation therapy, topical compound cream and medical management with opioid and non-opioid medications. He also tried yoga, heat and ice therapy and over the counter topical application without relief. Currently, patient is taking oxycodone 5 mg tid-qid for femur stress fracture, gabapentin 2400 mg/day and Naproxen prn. Also tried duloxetine and amitriptyline in the past with minimal effects. Patient was counseled in the past to avoid Lyrica and acetaminophen due to Hepatitis C. Patient reports SCS implant has been working well for the back but not for his feet. His program settings were readjusted many times but could not achieve reduction in lower legs and feet pain. SCS implant device was last adjusted on 03/2022. Reports progressive bilateral lower extremity weakness over the past 4 years. Patient denies bowel or bladder incontinence or saddle anesthesia. Patient reports history of DVT in his leg, cannot recall which side and location and reports history of 9 week hospitalization in 02/2021 for foot ulcers related to osteomyelitis and required skin grafts. He reports constant stinging pain in the mornings in the dorsal aspects of both feet. Patient denies diabetes mellitus. Patient is a former smoker. He used to see vascular surgeon Dr. Roman at [facility] for DVT with last visit over a year ago. Patient has significant discoloration of both feet with cold to touch, pale lower legs, absent hair growth and color changes in both dorsal surfaces of both feet. Diminished pulses with delayed capillary refill especially in his left 2nd toe which patient reports at times goes ?completely dark.? Patient presents with decreased sensation to plantar and dorsal surfaces. Reports rest and claudication pain. Patient reports constant stabbing, aching and burning pain in both feet. 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 Similar but milder neuropathy affecting upper extremities. This EMG study did not suggest demyelinating type of neuropathy. EMG study for noted for chronic right lower lumbar radiculopathy and chronic right mid to lower cervical radiculopathy. Lumbar spine MRI 12/07/21 showed moderate multilevel degenerative spondyloarthropathy of the lumbar spine and moderate to severe neural foraminal stenoses from L1-S1. Patient denies any specific cervical or lumbar pain today and is interested in interventional treatments to alleviate his ?both feet nerve pain? and increase strength in lower extremities with walking. [facility] Medical History Abdominal tenderness Actinic keratosis Anxiety Chronic pain syndrome Constipated Degenerative joint disease involving multiple joints Depression Failed back syndrome, lumbosacral Foot pain, bilateral Functional diarrhea Hard of hearing Hypertensive disorder Leg edema Lumbar disc disease Nicotine dependence Osteoarthritis Peripheral artery disease Peripheral neuropathy Raynauds disease Seborrheic dermatitis Viral hepatitis C Surgical History H/O splenectomy History of appendectomy History of back surgery History of total hip replacement Social History Alcohol intake: current Alcohol intake frequency: does not drink Patient Tobacco Use Status: Current everyday Tobacco user Tobacco use type: Cigarette Cigarette Packs Per Day: 0.5 Cigarettes Per Day: 10.0 Review of Systems Const All systems reviewed & are unremarkable except as noted in HPI and below ENT Reports Normal hearing present Neuro Reports Normal hearing present Physical Exam Vital Signs: Last Vital Signs Pulse 81 07/05/24 16:34 BP 146/91 H 07/05/24 16:34 Pulse Ox 94 07/05/24 16:34 Oxygen Delivery Method Room Air 07/05/24 16:34 BMI result Body Mass Index 29.3 General: Appears afebrile. Alert and oriented. Mood and affect appropriate. Follows and participates in conversation appropriately. Respiratory effort is unlabored. Able to transition from sit to stand with assistance of walker. Ambulates with bilaterally normal heel strike and toe off. Back/Spine/Pelvis Other: The dressing was removed. No pathological discharge, tenderness, redness, bruising or erythema noted in both incisions. The incisions were washed with ChloraPrep and mesha were removed. Steri strips were applied to battery pocket site incision. The incisions were washed with ChloraPrep again and dressed with bacitracin ointment, sterile dry gauze and Tegaderm film. Cervical Spine: No Cervical spine tenderness Thoracic/Lumbar Spine: thoracic and lumbar spine normal to inspection, Thoracic/lumbar spine scar(s), thoraco-lumbar ROM limited, No thoracic spinal tenderness and No lumbar spinal tenderness Neuro Cranial nerves: Yes Normal hearing present Assessment & Plan Assessment & Plan (1) Chronic pain syndrome: Code(s): G89.4 - Chronic pain syndrome Category: Medical (2) Peripheral neuropathy: Code(s): G62.9 - Polyneuropathy, unspecified Category: Medical (3) Degenerative joint disease involving multiple joints: Code(s): M15.9 - Polyosteoarthritis, unspecified Category: Medical (4) Failed back syndrome, lumbosacral: Code(s): M96.1 - Postlaminectomy syndrome, not elsewhere classified Category: Medical Plan: ? Intrathecal pump refill. THE PATIENT CAME TODAY IN THE OR - PACU FOR THE CHANGE OF THE MEDICATION IN her PAIN PUMP. The name and date of were verified and informed consent was obtained for the procedure. ?The pump was interrogated and the residual amount of fluid was found to be 1.5 mL. HE WAS POSITIONED prone on the bed AND THE AREA OF THE INTRATHECAL PUMP WAS PREPPED WITH CHLORAPREP. The fenestrated drape was sterilely applied over the area of the pump. Sterile gloves were worn and of the aspiration system was assembled containing 2 in 22 gauge noncoring needle, the needle was connected to extension tubing which was connected to the 20 cc sterile syringe. The pain pump was palpated under the skin in the patient's right buttock area. The needle was inserted through the skin and the central plug of the pain pump and fluid was aspirated. The clear fluid was going into the syringe the total amount of the fluid was 2.0 mL .. After that a new batch? of medication was obtained which was containing hydromorphone in concentration 2000 micro g/ml and 6 mg/ml of bupivacaine. . The admixture was made in 20 cc syringe prepared by [facility] compounding pharmacy. The syringe was connected to the bacterial filter, and then connected to the extension tubing. After that the medication in the syringe was slowly instilled into the pump with aspirations at 15 and 5 cc raymond.? The pump was reprogrammed for the doses of continuous hydromorphone o 96.1 mcg a day, he is also is reprogrammed to receive 128.9 micro g of Dilaudid with corresponding doses of the bupivacaine on demand 4 times a day with lockout interval of 4 hours. The medication will be administered over 5 minutes . (5) Foot pain, bilateral: Code(s): M79.671 - Pain in right foot; M79.672 - Pain in left foot Category: Medical Plan Next pump refill will be scheduled on 09/05/2024 Coding Level of Care Code Est Pt Level 3 (51823) Procedure Only Diagnoses Chronic pain syndrome G89.4 Peripheral neuropathy G62.9 Degenerative joint disease involving multiple joints M15.9 Failed back syndrome, lumbosacral M96.1 Foot pain, bilateral M79.671; M79.672
[2024-07-05 16:34] VITALS: BP 146/91; PULSE 81; O2SAT 94; BMI 29.3
== END 2024-07-05 16:15 | disposition home or self-care (01) ==
PROVIDERS: PCP Family Medicine; Visit Provider Anesthesiology
DX: G89.4 Chronic pain syndrome (principal); G62.9 Polyneuropathy, unspecified; M15.9 Polyosteoarthritis, unspecified; M96.1 Postlaminectomy syndrome, not elsewhere classified; Z45.1 Encounter for adjustment and management of infusion pump; M79.671 Pain in right foot; M79.672 Pain in left foot
CPT/HCPCS: 62370; 99213

== ENCOUNTER → 2024-07-05 15:50 | Outpatient (BNVA) | payer OTHER, SELFPAY | PROVIDERS: PCP Family Medicine; Visit Provider Anesthesiology | DX: Z45.1 Encounter for adjustment and management of infusion pump (principal); G89.4 Chronic pain syndrome; G62.9 Polyneuropathy, unspecified; M15.9 Polyosteoarthritis, unspecified; M96.1 Postlaminectomy syndrome, not elsewhere classified | CPT/HCPCS: 62370 ==

== ENCOUNTER → 2024-08-06 11:34 | Outpatient (BNVA) | payer OTHER, SELFPAY | PROVIDERS: PCP Family Medicine; Visit Provider Physical Medicine & Rehabilitation ==

== ENCOUNTER 2024-08-06 11:40 | Outpatient (AMB) | payer OTHER, SELFPAY ==
[2024-08-06 11:35] VITALS: BMI 29.3
--- NOTE | 2024-08-06 11:35 | A.OFFVIS_ITS ---
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 Swenson from [facility]. Patient reports seeing pain management for pain pump and stimulator. He has had two back surgeries due to stenosis. Accompanied by: Daughter Allergies aspirin Adverse Reaction (Unknown, Verified 08/06/24 11:50) Unknown HPI Comments Details: History of neuropathy, lumbar surgery, DVT. 2 back surgeries and bilateral hip replacements. Neuropathy diagnosed after these surgeries, by EMG. No history of DM or chemo. Etiology unknown. Describes shooting electric pulses on both legs. Throbs. He actually denies numbness but daughter says he does on both feet. Right foot drop, fitted for AFO, follows podiatry. Right foot with arthritis and hammer toes. History of lumbar spinal stenosis. Medication list include gabapentin. Following pain management for intrathecal thumb. Previous EMG, MRI 2021 and notes from [facility] are in his chart. PCP has expressed concern to patient/daughter about claudication. Saw Dr. Andrews 2022 who did not think this was vascular, within normal REYNALDO and ultrasound. He had PT in [place], needing order from Physiatry for further therapy. Here today with daughter. Functional level: Walks with walker household distances, walker from house to car, then WC in public. Transfers with walker. Independently dressing, toilet and bathing, eating. Stairlift. [facility], [facility] Medical History Abdominal tenderness Actinic keratosis Anxiety Chronic pain syndrome Constipated Degenerative joint disease involving multiple joints Depression Failed back syndrome, lumbosacral Foot pain, bilateral Functional diarrhea Hard of hearing Hypertensive disorder Leg edema Lumbar disc disease Nicotine dependence Osteoarthritis Peripheral artery disease Peripheral neuropathy Raynauds disease Seborrheic dermatitis Viral hepatitis C Surgical History H/O splenectomy History of appendectomy History of back surgery History of total hip replacement Social History Alcohol intake: current Alcohol intake frequency: does not drink Patient Tobacco Use Status: Current everyday Tobacco user Tobacco use type: Cigarette Cigarette Packs Per Day: 0.5 Cigarettes Per Day: 10.0 Review of Systems Const All systems reviewed & are unremarkable except as noted in HPI and below Physical Exam Vital Signs: BMI result Body Mass Index 29.3 Constitutional: Patient appears to be in no acute distress, well nourished and well developed. Patient was appropriately conversant and oriented. Good historian. MSK: Bilateral footdrop, right worse than left. Dorsiflexion 0/5 on right, 2/5 on left. Bilateral knee extension 4/5. Bilateral hip flexion 4/5. Patient examined while sitting on wheelchair. Results Reviewed Results Reviewed: I reviewed records from the following: As above Assessment & Plan Assessment & Plan (1) Failed back syndrome, lumbosacral: Code(s): M96.1 - Postlaminectomy syndrome, not elsewhere classified Category: Medical (2) Peripheral neuropathy: Code(s): G62.9 - Polyneuropathy, unspecified Category: Medical Qualifiers: Peripheral neuropathy type: polyneuropathy, unspecified Qualified Code(s): G62.9 - Polyneuropathy, unspecified Plan Chronic pain, 2 past lumbar surgeries, told to have lumbar spinal stenosis, peripheral neuropathy etiology unknown, past bilateral hip replacements, bilateral knee arthritis not a candidate for knee replacements, has intrathecal pain pump managed by pain management, history of DVT. Most of his weakness and functional decline I think is from bilateral footdrop. He is stronger proximally. 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 I think setting reasonable goals and expectations is the most important. They are also wondering if we should repeat a lumbar MRI to see status of spinal stenosis. However he is not looking for nor a good candidate for further lumbar surgeries or even injections. A repeat MRI would only be informational at this point. I thought an MRI was done in 2021 based on past notes from pain management. Patient thinks it was back in 2018. We will investigate, we will make some calls to find the most recent MRI or CT scan done in the last 5 years. Referring patient to physical therapy to work on gait, strengthening and endurance. He is going to receive a right AFO, which I advised should be brought to physical therapy. Assessment and plan discussed with patient, and patient was agreeable. All questions were answered thoroughly. Follow up 2 months. Total of 45 minutes spent today including chart review, results review, history taking, physical examination, discussion of assessment and plan, and coordination of care. Sary Stevens MD, HECTOR Board Certified, [place] Board of Physical Medicine and Rehabilitation (ABPMR) Board Certified, [place] Board of Electrodiagnostic Medicine (ABEM) Orders: Orders PT Evaluation and Treatment Today G62.9 - Polyneuropathy, unspecified, M96.1 - Postlaminectomy syndrome, not elsewhere classified Coding Level of Care Code New Pt Level 4 (75542) Complex EM visit Add On G2211 Diagnoses Failed back syndrome, lumbosacral M96.1 Peripheral polyneuropathy G62.9 Peripheral neuropathy type: polyneuropathy, unspecified
--- OUTSIDE RECORDS SUMMARY | 2024-08-06 11:59 | XMS_ITS ---
Author Organization [employer]. 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 Care Team Providers Care Distillery Miller Name Role Phone Unavailable Primary Care Provider Unavailabl e Encounters Encounter Date Encounter Type Encounter Diagnosis Care Provider Facility Start: 06-30-2024 12:00050 End: 07-06-2024 01:05050 Transcribe Orders Bilateral hearing loss Ben Swenson MD Work Phone: [facility] Comment on above: Bilateral hearing lo ss, unspecified hearing loss type (Primary Dx) Plan of Treatment Date Care Activity Detail Author Start: 2025 RSV Vaccine 60 years and older and Patients (1 - 1-dose 75+ series) RSV Vaccine 60 years and older and Patients (1 - 1-dose 75+ series) [facility] Start: 03-28-2024 COVID-19 Vaccine ( season) COVID-19 Vaccine ( season) [facility] Start: 2015 Pneumococcal Vaccine s 65+ (1 of 1 - PCV) Pneumococcal Vaccines 65+ (1 of 1 - PCV) [facility] Start: 02-04-2000 Hzv zoster vacc recombinant adjuvanted im njx Zoster (Shingles) Vaccine (1 of 2) [facility] Start: 1969 DTaP/Tdap/Td Vaccine s (1 - Tdap) DTaP/Tdap/Td Vaccines (1 - Tdap) [facility] Start: 1950 Hepatitis C screening Hepatiti s C Virus Screening [facility] Problems Active Problems Problem Classification Problem Date Last Recorded Documented Date Chronic Condition Indicator Provider Other ear and sense organ disorders (1 source) Bilateral hearing loss; Translations: [Unspecified hearing loss, bilateral] 06-30-2024 Chronic Alisa Terry Social History Date Type Detail Facility Start: 1950 Sex assigned at Not on file [facility] unknown [facility] Gender identity Not on file [facility] Evaluation note Note Date & Type Note Facility Evaluation note Diagnosis Bilateral hearing loss, unspecified hearing loss type- Primary documented in this encounter [facility] Reason for Referral Specialty Diagnoses / Procedures Referred By Annalee apz Referred To Contact Otolaryngology Diagnoses Bilateral hearing loss, unspecified hearing loss type Ben Swenson MD [address] [place] [address] [facility] [address] [place] [address] Referral ID Status Reason Start Date Expiration Date Visits Requested Visits Authorized [id number] Pending Review Consult 06/30/2024 07/01/2025 1 1 Additional Source Comments This clinical document has been generated using [employer] software that has been certified by the Office of the National Coordinator for Health Information Technology (ONC 15.99.04.3023.Diam.31.00.0.248098) and the National Committee for Care Management Specialist (NCQA, as an eMeasure certified technology). FOR RECORDS PERTAINING TO PATIENTS WHO ARE OR HAVE BEEN ENROLLED IN A CHEMICAL DEPENDENCY/SUBSTANCEABUSE PROGRAM, SOME INFORMATION MAY BE OMITTED. This clinical summary was aggregated from multiple sources. Caution should be exercised in using it in the provision of clinical care. This summary normalizes information from multiple sources, and as a consequence, information in this document may materially change the coding, format and clinical context of patient data. In addition, data may be omitted in some cases. CLINICAL DECISIONS SHOULD BE BASED ON THE PRIMARY CLINICAL RECORDS. [employer] provides no warranty or guarantee of the accuracy or completeness of information in this document.The following information is based on time limited clinical information
--- OUTSIDE RECORDS SUMMARY | 2024-08-06 12:00 | XMS_ITS ---
Author Organization [employer]. 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 Care Team Providers Care Ex Assistant/Program Director Name Role Phone Unavailable Primary Care Provider Unavailabl e Encounters Encounter Date Encounter Type Encounter Diagnosis Care Provider Facility Start: 06-30-2024 12:00050 End: 07-06-2024 01:05050 Transcribe Orders Bilateral hearing loss Ben Swenson MD Work Phone: [facility] Comment on above: Bilateral hearing lo ss, unspecified hearing loss type (Primary Dx) Plan of Treatment Date Care Activity Detail Author Start: 2025 RSV Vaccine 60 years and older and Patients (1 - 1-dose 75+ series) RSV Vaccine 60 years and older and Patients (1 - 1-dose 75+ series) [facility] Start: 03-28-2024 COVID-19 Vaccine ( season) COVID-19 Vaccine ( season) [facility] Start: 2015 Pneumococcal Vaccine s 65+ (1 of 1 - PCV) Pneumococcal Vaccines 65+ (1 of 1 - PCV) [facility] Start: 02-04-2000 Hzv zoster vacc recombinant adjuvanted im njx Zoster (Shingles) Vaccine (1 of 2) [facility] Start: 1969 DTaP/Tdap/Td Vaccine s (1 - Tdap) DTaP/Tdap/Td Vaccines (1 - Tdap) [facility] Start: 1950 Hepatitis C screening Hepatiti s C Virus Screening [facility] Problems Active Problems Problem Classification Problem Date Last Recorded Documented Date Chronic Condition Indicator Provider Other ear and sense organ disorders (1 source) Bilateral hearing loss; Translations: [Unspecified hearing loss, bilateral] 06-30-2024 Chronic Alisa Terry Social History Date Type Detail Facility Start: 1950 Sex assigned at Not on file [facility] unknown [facility] Gender identity Not on file [facility] Evaluation note Note Date & Type Note Facility Evaluation note Diagnosis Bilateral hearing loss, unspecified hearing loss type- Primary documented in this encounter [facility] Reason for Referral Specialty Diagnoses / Procedures Referred By Annalee paz Referred To Contact Otolaryngology Diagnoses Bilateral hearing loss, unspecified hearing loss type Ben Swenson MD [address] [place] [address] [facility] [address] [place] [address] Referral ID Status Reason Start Date Expiration Date Visits Requested Visits Authorized [id number] Pending Review Consult 06/30/2024 07/01/2025 1 1 Additional Source Comments This clinical document has been generated using [employer] software that has been certified by the Office of the National Coordinator for Health Information Technology (ONC 15.99.04.3023.Diam.[id number]) and the National Committee for Transfusion Aide (NCQA, as an eMeasure certified technology). FOR [...] BE BASED ON THE PRIMARY CLINICAL RECORDS. [employer] provides no warranty or guarantee of the accuracy or completeness of information in this document.The following information is based on time limited clinical information
== END 2024-08-06 12:22 | disposition home or self-care (01) ==
PROVIDERS: PCP Family Medicine; Visit Provider Physical Medicine & Rehabilitation
DX: M96.1 Postlaminectomy syndrome, not elsewhere classified (principal); G62.9 Polyneuropathy, unspecified
CPT/HCPCS: 99204; G2211

== ENCOUNTER 2024-09-06 15:35 | Outpatient (AMB) | payer OTHER, SELFPAY ==
--- NOTE | 2024-09-06 15:45 | A.OFFVIS_ITS ---
Intake Visit Reasons: ITDD PUMP REFILL Foreman/Pile Driving And Erection Required: No Service Desk Team Lead: Service Desk Team Lead Present Allergies aspirin Adverse Reaction (Unknown, Verified 09/08/24 08:17) Unknown HPI Comments Details: Zheng is here to refill his intrathecal pain pump. He reports adequate pain control. He reports his pain today is better compared to the last time. He reports improved mobility. Pump refill as below. His next pump refill will be scheduled on 11/05/2024. PRIOR: Patient is a 72 years old male with history of right lower lumbar radiculopathy, L5-S1 right microlumbar discectomy and bilateral lateral decompression, bilateral hip replacements, feet ulcers with skin grafting, percutaneous dorsal column Boothe SCS and most recent right femur fracture presents today with severe neuropathic pain in both of his feet and ankles and widespread pain in his body. He is accompanied by his and his daughter is also present via phone speaker to assist with history intake. Patient arrived by wheelchair today due to stress fracture healing but has been using a walker for transfers and ambulation prior to this. Femur stress fracture is currently managed by [facility]. Pain is described as intermittent pulsing, throbbing, pounding, dull, sore, hurting, aching, heavy and stinging. Pain ranges from 5/10 to 9/10 in severity in the past 2 weeks. Patient reports his pain has been worsening over the past 4 years. He was followed by [facility] and received multiple injections for lumbar spinal stenosis with neurogenic claudication, physical therapy, chiropractic manipulation therapy, topical compound cream and medical management with opioid and non-opioid medications. He also tried yoga, heat and ice therapy and over the counter topical application without relief. Currently, patient is taking oxycodone 5 mg tid-qid for femur stress fracture, gabapentin 2400 mg/day and Naproxen prn. Also tried duloxetine and amitriptyline in the past with minimal effects. Patient was counseled in the past to avoid Lyrica and acetaminophen due to Hepatitis C. Patient reports SCS implant has been working well for the back but not for his feet. His program settings were readjusted many times but could not achieve reduction in lower legs and feet pain. SCS implant device was last adjusted on 03/2022. Reports progressive bilateral lower extremity weakness over the past 4 years. Patient denies bowel or bladder incontinence or saddle an esthesia. Patient reports history of DVT in his leg, cannot recall which side and location and reports history of 9 week hospitalization in 02/2021 for foot ulcers related to osteomyelitis and required skin grafts. He reports constant stinging pain in the mornings in the dorsal aspects of both feet. Patient denies diabetes mellitus. Patient is a former smoker. He used to see vascular surgeon Dr. Roman at [facility] for DVT with last visit over a year ago. Patient has significant discoloration of both feet with cold to touch, pale lower legs, absent hair growth and color changes in both dorsal surfaces of both feet. Diminished pulses with delayed capillary refill especially in his left 2nd toe which patient reports at times goes ?completely dark.? Patient presents with decreased sensation to plantar and dorsal surfaces. Reports rest and claudication pain. Patient reports constant stabbing, aching and burning pain in both feet. 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 Similar but milder neuropathy affecting upper extremities. This EMG study did not suggest demyelinating type of neuropathy. EMG study for noted for chronic right lower lumbar radiculopathy and chronic right mid to lower cervical radiculopathy. Lumbar spine MRI 12/07/21 showed moderate multilevel degenerative spondyloarthropathy of the lumbar spine and moderate to severe neural foraminal stenoses from L1-S1. Patient denies any specific cervical or lumbar pain today and is interested in interventional treatments to alleviate his ?both feet nerve pain? and increase strength in lower extremities with walking. [facility] Medical History Abdominal tenderness Actinic keratosis Anxiety Chronic pain syndrome Constipated Degenerative joint disease involving multiple joints Depression Failed back syndrome, lumbosacral Foot pain, bilateral Functional diarrhea Hard of hearing Hypertensive disorder Leg edema Lumbar disc disease Nicotine dependence Osteoarthritis Peripheral artery disease Peripheral neuropathy Raynauds disease Seborrheic dermatitis Viral hepatitis C Surgical History H/O splenectomy History of appendectomy History of back surgery History of total hip replacement Social History Alcohol intake: current Alcohol intake frequency: does not drink Patient Tobacco Use Status: Current everyday Tobacco user Tobacco use type: Cigarette Cigarette Packs Per Day: 0.5 Cigarettes Per Day: 10.0 Review of Systems Const All systems reviewed & are unremarkable except as noted in HPI and below ENT Reports Normal hearing present Neuro Reports Normal hearing present Physical Exam General: Appears afebrile. Alert and oriented. Mood and affect appropriate. Follows and participates in conversation appropriately. Respiratory effort is unlabored. Able to transition from sit to stand with assistance of walker. Ambulates with bilaterally normal heel strike and toe off. Back/Spine/Pelvis Cervical Spine: No Cervical spine tenderness Thoracic/Lumbar Spine: thoracic and lumbar spine normal to inspection, Tho racic/lumbar spine scar(s), thoraco-lumbar ROM limited, No thoracic spinal tenderness and No lumbar spinal tenderness Neuro Cranial nerves: Yes Normal hearing present Assessment & Plan Assessment & Plan (1) Failed back syndrome, lumbosacral: Code(s): M96.1 - Postlaminectomy syndrome, not elsewhere classified Category: Medical Plan: ? Intrathecal pump refill. THE PATIENT CAME TODAY IN THE OR - PACU FOR THE CHANGE OF THE MEDICATION IN her PAIN PUMP. The name and date of were verified and informed consent was obtained for the procedure. ?The pump was interrogated and the residual amount of fluid was found to be 0.8 mL. HE WAS POSITIONED prone on the bed AND THE AREA OF THE INTRATHECAL PUMP WAS PREPPED WITH CHLORAPREP. The fenestrated drape was sterilely applied over the area of the pump. Sterile gloves were worn and of the aspiration system was assembled containing 2 in 22 gauge noncoring needle, the needle was connected to extension tubing which was connected to the 20 cc sterile syringe. The pain pump was palpated under the skin in the patient's right buttock area. The needle was inserted through the skin and the central plug of the pain pump and fluid was aspirated. The clear fluid was going into the syringe the total amount of the fluid was 1.3 mL .. After that a new batch? of medication was obtained which was containing hydromorphone in concentration 2000 micro g/ml and 6 mg/ml of bupivacaine. . The admixture was made in 20 cc syringe prepared by [facility] compounding pharmacy. The syringe was connected to the bacterial filter, and then connected to the extension tubing. After that the medication in the syringe was slowly instilled into the pump with aspirations at 15 and 5 cc raymond.? The pump was reprogrammed for the doses of continuous hydromorphone o 96.1 mcg a day, he is also is reprogrammed to receive 128.9 micro g of Dilaudid with corresponding doses of the bupivacaine on demand 4 times a day with lockout interval of 4 hours. The medication will be administered over 5 minutes . (2) Peripheral neuropathy: Code(s): G62.9 - Polyneuropathy, unspecified Category: Medical Qualifiers: Peripheral neuropathy type: polyneuropathy, unspecified Qualified Code(s): G62.9 - Polyneuropathy, unspecified (3) Chronic pain syndrome: Code(s): G89.4 - Chronic pain syndrome Category: Medical (4) Degenerative joint disease involving multiple joints: Code(s): M15.9 - Polyosteoarthritis, unspecified Category: Medical (5) Foot pain, bilateral: Code(s): M79.671 - Pain in right foot; M79.672 - Pain in left foot Category: Medical Plan Next pump refill will be scheduled on 11/05/2024. Coding Level of Care Code Est Pt Level 3 (64282) Procedure Only Diagnoses Failed back syndrome, lumbosacral M96.1 Peripheral polyneuropathy G62.9 Peripheral neuropathy type: polyneuropathy, unspecified Chronic pain syndrome G89.4 Degenerative joint disease involving multiple joints M15.9 Foot pain, bilateral M79.671; M79.672
--- OUTSIDE RECORDS SUMMARY | 2024-09-06 16:27 | XMS_ITS | Clinical Summary ---
Author Organization [facility] Address [address] [place] [address] Care Team Providers Care Steward/Stewardess Name Role Phone Unavailable Primary Care Provider Unavailabl e Surgical History Surgery Date Site/Laterality Comments OTHER SURGICAL HISTORY PROCEDURE: HISTORICAL SPLENECTOMY BACK SURGERY PROCEDURE: HISTORICAL BACK SURGERY; COMMENT: dr ruiz Medical History Medical History Date Comments Hepatitis C DX:Hepatitis C; COMMENT: dr ayala Chronic back pain DX:Chronic farzad k pain Spinal stenosis DX:Spinal stenos is Encounter for monitoring Sub oxone maintenance therapy DX:Encounter for monitoring Suboxone maintenance therapy Social History Tobacco Use Types Packs/Day Years Used Date Smoking Tobacco: Every Day Cigarettes Smokeless Tobacco: Never Alcohol Use Standard Drinks/Week Comments Not Asked 0 (1 standard drink = 0.6 oz pur e alcohol) Sex and Gender Information Value Date Recorded Sex Assigned at Not on file Legal Sex Male 7:29 AM EST Gender Identity Not on file Sexual Orientation Not on file Obstetrics History Last Filed Vital Signs Vital Sign Reading Time Taken Comments Blood Pressure 120/70 10/26/2021 2:11 PM EDT Pulse 80 10/26/2021 2:11 PM EDT Temperature - - Respiratory Rate - - Oxygen Saturation - - Inhaled Oxygen Concentration - - Weight 93 kg (205 lb) 10/26/2021 2:11 PM EDT Height 180.3 cm (5' 11 ) 10/26/2021 2:11 PM EDT Body Mass Index 28.59 10/26/2021 2:11 PM EDT Plan of Treatment Health Maintenance Due Date Last Done Comments Pneumococcal Vaccine: 50+ Ye ars (1 of 2 - PCV) 02/04/1956 DTaP,Tdap,and Td Vaccines (1 - Tdap) 1969 Hepatitis A Vaccines (1 of 2 - Risk 2-dose series) 1969 Zoster Vaccines (1 of 2) 02/04/2000 Hepatitis B Vaccines (1 of 3 - Risk 3-dose series) 2010 RSV Immunization Patients 60 + Years Old (1 - Risk 60-74 years 1-dose series) 2010 Abdominal Aortic Aneurysm (A AA) Screen 06/30/2022 Cholesterol Screening (Lipid Panel) 06/30/2022 Colorectal Cancer Screening: Colonoscopy 06/30/2022 Depression Screening 06/30/2022 Falls Risk Assessment 06/30/2022 Hepatitis C Screening 06/30/2022 Social Influencers of Health Screening 06/30/2022 Hypertension/CHF/CAD Annual BMP Blood Test 07/11/2022 COVID-19 Vaccine (2023-2 5 season) 2024 Influenza Vaccine (#1) 2024 HIB Vaccines Aged Out No longer eligi ble based on patient's age to complete this topic HPV Vaccines Aged Out No longer eligi ble based on patient's age to complete this topic IPV Vaccines Aged Out No longer eligi ble based on patient's age to complete this topic MMR Vaccines Aged Out No longer eligi ble based on patient's age to complete this topic Meningococcal ACWY Vaccine Aged Out N o longer eligible based on patient's age to complete this topic RSV Immunization Patients Un derrell 20 months Aged Out No longer eligible b ased on patient's age to complete this topic Varicella Vaccines Aged Out No longer eligible based on patient's age to complete this topic Advance Directives Documents on File Type Date Recorded Patient Car Body Inspector Expl anation Health Care Decision (hx) 04/21/2021 AD BERGER DIRECTIVE Health Care Decision (hx) 04/21/2021 AD BERGER DIRECTIVE Health Care Decision (hx) 04/21/2021 AD BERGER DIRECTIVE Health Care Decision (hx) 04/21/2021 AD BERGER DIRECTIVE Health Care Decision (hx) 04/21/2021 AD BERGER DIRECTIVE Health Care Decision (hx) 04/21/2021 AD BERGER DIRECTIVE Health Care Decision (hx) 04/21/2021 AD BERGER DIRECTIVE Health Care Decision (hx) 04/21/2021 AD BERGER DIRECTIVE Health Care Decision (hx) 04/21/2021 AD BERGER DIRECTIVE Health Care Decision (hx) 04/21/2021 AD BERGER DIRECTIVE Health Care Decision (hx) 04/21/2021 AD BERGER DIRECTIVE Health Care Decision (hx) 04/21/2021 AD BERGER DIRECTIVE Health Care Decision (hx) 04/21/2021 AD BERGER DIRECTIVE Health Care Decision (hx) 04/21/2021 AD BERGER DIRECTIVE Health Care Decision (hx) 04/21/2021 AD BERGER DIRECTIVE Health Care Decision (hx) 04/21/2021 AD BERGER DIRECTIVE Health Care Decision (hx) 04/21/2021 AD BERGER DIRECTIVE Health Care Decision (hx) 04/21/2021 AD BERGER DIRECTIVE Health Care Decision (hx) 04/21/2021 AD BERGER DIRECTIVE Health Care Decision (hx) 04/21/2021 AD BERGER DIRECTIVE
--- OUTSIDE RECORDS SUMMARY | 2024-09-06 16:27 | XMS_ITS | Clinical Summary ---
Author Organization [facility] Address [address] [place] [address] Care Team Providers Care Fuel Efficient Aircraft Designer Name Role Phone Unavailable Primary Care Provider Unavailabl e Encounters Date Type Department Care Team Description 06/30/2024 Transcribe Orders [facility] Ben Swenson MD Bilateral hearing loss, unspecified hearing loss type (Primary Dx) from Last 3 Months Social History Tobacco Use Types Packs/Day Years Used Date Smoking Tobacco: Never Assessed Sex and Gender Information Value Date Recorded Sex Assigned at Not on file Gender Identity Not on file Sexual Orientation Not on file Plan of Treatment Health Maintenance Due Date Last Done Comments Hepatitis C Virus Screening 1950 DTaP/Tdap/Td Vaccines (1 - Tdap) 1969 Colonoscopy 1995 Pneumococcal Vaccines 50+ (1 of 1 - PCV) 02/04/2000 Zoster (Shingles) Vaccine (1 of 2) 02/04/2000 Influenza Vaccine 02/26/2024 COVID-19 Vaccine ( - 2023-2 5 season) 2024 RSV Vaccine 60 years and old er and Patients (1 - 1-dose 75+ series) 2025 Hepatitis B Vaccines Aged Out No long er eligible based on patient's age to complete this topic
--- OUTSIDE RECORDS SUMMARY | 2024-09-06 16:27 | XMS_ITS | Clinical Summary ---
Author Organization [facility] Address [address] [address] Care Team Providers Care Fruit Thinner Name Role Phone Terry Manzano MD Primary Care Provider [phone] Allergies Active Allergy Reactions Criticality Noted Date Comments Aspirin 05/29/2021 Fentanyl 05/29/2021 Medications gabapentin (NEURONTIN) 300 MG capsule 04/12/2021 Active traZODone (DESYREL) 50 MG tablet 02/20/2021 Active Eliquis 5 MG tablet 06/19/2021 Active buprenorphine-nalo xone (SUBOXONE) 8-2 MG per SL tablet 06/20/2021 Active cefTRIAXone (ROCEPHIN) 2 g injection 06/05/2021 Active Santyl ointment 06/18/2021 Act salo dilTIAZem (CARDIZEM) 120 MG immediate release tablet 05/28/2021 Active oxyCODONE (ROXICODONE) 5 MG immediate release tablet 05/22/2021 Active PARoxetine (PAXIL) 20 MG tablet 07/06/2021 Active Active Problems No known active problems Social History Tobacco Use Types Packs/Day Years Used Date Smoking Tobacco: Every Day Cigarettes Smokeless Tobacco: Never Alcohol Use Standard Drinks/Week Comments Not Currently 0 (1 standard drink = 0.6 oz pur e alcohol) Sex and Gender Information Value Date Recorded Sex Assigned at Not on file Legal Sex Male 9:31 AM EDT Gender Identity Not on file Sexual Orientation Not on file Last Filed Vital Signs Vital Sign Reading Time Taken Comments Blood Pressure 112/70 07/10/2021 4:07 PM EST Pulse 77 07/10/2021 4:07 PM EST Temperature - - Respiratory Rate - - Oxygen Saturation 97% 07/10/2021 4:07 PM EST Inhaled Oxygen Concentration - - Weight 99.8 kg (220 lb) 07/10/2021 4:07 PM EST Height 182.9 cm (6') 07/10/2021 4:07 PM EST Body Mass Index 29.84 07/10/2021 4:07 PM EST Plan of Treatment Health Maintenance Due Date Last Done Comments Pneumococcal Vaccine: 65+ Ye ars (1 of 2 - PCV) 02/04/1956 Colorectal Cancer Screening: Annual FOBT 1999 Colorectal Cancer Screening: Colonoscopy 1999 Colorectal Cancer Screening: Sigmoidoscopy 1999 Influenza Vaccine (#1) 2024 Hepatitis B Vaccine Aged Out No longe r eligible based on patient's age to complete this topic Insurance AETNA AETNA Care Teams Fruit Thinner Relationship Specialty Start Date End Date Terry Manzano MD [address] [place], [place] PCP - General Internal Medicine 04/23/21
--- OUTSIDE RECORDS SUMMARY | 2024-09-06 16:27 | XMS_ITS ---
Author Organization [facility] Address Unknown Problems Problem Status Start Date End Date OSTEOMYELITIS, UNSPECIFIED (Primary) (M86.9 - ICD-10-C M) ACTIVE 05/03/2021 CELLULITIS OF RIGHT LOWER LIMB (L03.115 - ICD-10-CM) A CTIVE 05/03/2021 CELLULITIS OF LEFT LOWER LIMB (L03.116 - ICD-10-CM) AC TIVE 05/03/2021 ESSENTIAL (PRIMARY) HYPERTENSION (I10 - ICD-10-CM) ACT JJ 05/03/2021 UNSPECIFIED OSTEOARTHRITIS, UNSPECIFIED SITE (M19.90 - ICD-10-CM) ACTIVE 05/03/2021 TOBACCO USE (Z72.0 - ICD-10-CM) ACTIVE INSOMNIA, UNSPECIFIED (G47.00 - ICD-10-CM) ACTIVE 05/03/2021 UNSTEADINESS ON FEET (R26.81 - ICD-10-CM) ACTIVE 05/03/2021 ENCOUNTER FOR ADJUSTMENT AND MANAGEMENT OF VASCULAR ACCESS DEVICE (Z45.2 - ICD-10-CM) ACTIVE 05/03/2021 OTHER ABNORMALITIES OF GAIT AND MOBILITY (R26.89 - ICD-10-CM) ACTIVE 05/03/2021 WEAKNESS (R53.1 - ICD-10-CM) ACTIVE 05/03/2021 POLYNEUROPATHY, UNSPECIFIED (G62.9 - ICD-10-CM) ACTIVE 05/03/2021 CHRONIC VIRAL HEPATITIS C (B18.2 - ICD-10-CM) ACTIVE 05/03/2021 ANXIETY DISORDER, UNSPECIFIED (F41.9 - ICD-10-CM) ACTI VE 05/03/2021 MAJOR DEPRESSIVE DISORDER, S MARGARETTE EPISODE, UNSPECIFIED (F32.9 - ICD-10-CM) ACTIVE 05/03/2021 OTHER CHRONIC PAIN (G89.29 - ICD-10-CM) ACTIVE 1 UNSPECIFIED VIRAL HEPATITIS C WITHOUT HEPATIC COMA (B19.20 - ICD-10-CM) ACTIVE 05/03/2021 Encounters Encounter Performer Performer Role Encounter Diagnoses Location Date Discharge - Discharged to home [facility] self [facility] 1 03:00 pm EDT - 1 12:53 pm EST Immunizations Vaccine Date Covid-19 Vaccine (Pfizer CVX 208) dose #1 10/26/2020 12:00 am EDT Covid-19 Vaccine (Pfizer CVX 208) dose # 2 11/27/2020 12:00 am EDT Social History
== END 2024-09-06 15:55 | disposition home or self-care (01) ==
PROVIDERS: PCP Family Medicine; Visit Provider Anesthesiology
DX: M96.1 Postlaminectomy syndrome, not elsewhere classified (principal); G62.9 Polyneuropathy, unspecified; G89.4 Chronic pain syndrome; M15.9 Polyosteoarthritis, unspecified; Z45.1 Encounter for adjustment and management of infusion pump; M79.671 Pain in right foot; M79.672 Pain in left foot
CPT/HCPCS: 62370; 99213

== ENCOUNTER → 2024-09-06 15:35 | Outpatient (BNVA) | payer OTHER, SELFPAY | PROVIDERS: PCP Family Medicine; Visit Provider Anesthesiology | DX: M96.1 Postlaminectomy syndrome, not elsewhere classified (principal); G62.9 Polyneuropathy, unspecified; G89.4 Chronic pain syndrome; M15.9 Polyosteoarthritis, unspecified; M79.671 Pain in right foot; M79.672 Pain in left foot; Z45.1 Encounter for adjustment and management of infusion pump; Z79.899 Other long term (current) drug therapy | CPT/HCPCS: 62370 ==

== ENCOUNTER 2024-09-17 14:34 | Outpatient (RCR) | payer OTHER, SELFPAY ==
[2024-08-31 15:02] VITALS: BP 128/76; O2SAT 90
--- NOTE | 2024-09-07 15:39 | MHC.PT.EP ---
[facility] [place] Office [place] Office [place] Office [address] Trudi [place] [address] [phone] F: [phone] F: [phone] F: [phone] F: [phone] Physical Therapy Plan of Care Date of Evaluation: 08/31/24 Date of Surgery: Diagnosis: Postlaminectomy syndrome, polyneuropathy, failed back syndrome, lumbosacral polyneuropathy, Assessment: Pt is a 74 y/o male with PMHx significant for chronic pain syndrome, Degenerative joint disease involving multiple joints, Foot pain B, [place], HTN, Leg edema, Lumbar disc disease, Osteoarthritis, PAD, Peripheral neuropathy, Viral hepatitis, History of back surgery, History of CAITLIN, who is referred to PT for eval and treat of Postlaminectomy syndrome, polyneuropathy, failed back syndrome, lumbosacral polyneuropathy, with special instructions for work on gait and LE strengthening with the goal to independently walk and stand for longer periods; who's conditons are resulting in decreased tolerance and ability for standing and walking, performing HH chores, entering and exiting a vehicle as well as some ADLs secondary to decreased B LE and core strength, decreased balance, gait abnormality, B foot neuropathy, decreased B knee and hip ROM, sedentary lifestyle with WC mobility at baseline, complex medical Hx, and pain. Pt is deemed an appropriate candidate to receive skilled PT services to address their physical impairments in order to improve their functional ability. Special MD instructions: Yair work on gait and LE strengthening with the goal to independently walk and stand for longer periods. Frequency and Duration: The patient will be seen 2 x/ wk x 5 wks. Short Term Goals: Initiate home program with evidence of compliance. Pt will demonstrate upright posture in standing at walker. [employer] Safety Engineer Goals: I with home program. Pt will be able to ambulate 500ft with 2WW. initial 50ft. Pt will improve B hip abd strength by at least 1/2 MMT grade. Pt will improve LEFI outcome measure by at least 9 points. Treatment Plan: Modalities to reduce pain, spasms and effusion. Manual therapy to restore motion and function. Therapeutic exercise to improve strength and flexibility. Neuromuscular re-education for posture and balance. Therapeutic activities to return to functional activities of daily living. Electronically signed by: Osman Gonzalez PT. Please sign and return to therapist. Thank you for your referral.
--- NOTE | 2024-09-09 10:06 | MHC.PT.EP ---
[facility] [place] Office [place] Office [place] Office [address] [place]udi [place] [address] [phone] F: [phone] F: [phone] F: [phone] F: [phone] Physical Therapy Plan of Care Date of Evaluation: 08/31/24 Date of Surgery: Diagnosis: Postlaminectomy syndrome, polyneuropathy, failed back syndrome, lumbosacral polyneuropathy, Assessment: Pt is a 74 y/o male with PMHx significant for chronic pain syndrome, Degenerative joint disease involving multiple joints, Foot pain B, [place], HTN, Leg edema, Lumbar disc disease, Osteoarthritis, PAD, Peripheral neuropathy, Viral hepatitis, History of back surgery, History of CAITLIN, who is referred to PT for eval and treat of Postlaminectomy syndrome, polyneuropathy, failed back syndrome, lumbosacral polyneuropathy, with special instructions for work on gait and LE strengthening with the goal to independently walk and stand for longer periods; who's conditons are resulting in decreased tolerance and ability for standing and walking, performing HH chores, entering and exiting a vehicle as well as some ADLs secondary to decreased B LE and core strength, decreased balance, gait abnormality, B foot neuropathy, decreased B knee and hip ROM, sedentary lifestyle with WC mobility at baseline, complex medical Hx, and pain. Pt is deemed an appropriate candidate to receive skilled PT services to address their physical impairments in order to improve their functional ability. Special MD instructions: Yair work on gait and LE strengthening with the goal to independently walk and stand for longer periods. Frequency and Duration: The patient will be seen 2 x/ wk x 5 wks. Short Term Goals: Initiate home program with evidence of compliance. Pt will demonstrate upright posture in standing at walker. Program Director/Traffic Director Goals: I with home program. Pt will be able to ambulate 500ft with 2WW. initial 50ft. Pt will improve B hip abd strength by at least 1/2 MMT grade. Pt will improve LEFI outcome measure by at least 9 points. Treatment Plan: Modalities to reduce pain, spasms and effusion. Manual therapy to restore motion and function. Therapeutic exercise to improve strength and flexibility. Neuromuscular re-education for posture and balance. Therapeutic activities to return to functional activities of daily living. Electronically signed by: Osman Gonzalez PT. Please sign and return to therapist. Thank you for your referral.
== END 2025-07-15 15:02 | disposition home or self-care (01) ==
LOC: HO.PT 14:34
PROVIDERS: Visit Provider Physical Medicine & Rehabilitation
DX: M96.1 Postlaminectomy syndrome, not elsewhere classified (principal); G62.9 Polyneuropathy, unspecified
CPT/HCPCS: 97110; 97162; 97530

== ENCOUNTER 2024-11-04 15:26 | Outpatient (AMB) | payer OTHER, SELFPAY ==
[2024-11-04 15:43] VITALS: BP 107/65; PULSE 75; O2SAT 93; BMI 27.1
--- NOTE | 2024-11-04 15:43 | MHC.OFFVIS ---
Vital Signs 11/04/24 15:43 Height 6 ft Weight 200 lb BMI 27.1 BP 107/65 Blood Pressure Location Rt brachial Position Sitting Pulse 75 Pulse Source Pulse Oximeter Pulse Oximetry (%) 93 Oxygen Delivery Method Room Air Intake Visit Reasons: ITDD Refill Allergies aspirin Adverse Reaction (Unknown, Verified 11/04/24 15:44) Unknown HPI Comments Details: Zheng is here to refill his intrathecal pain pump. He reports adequate pain control. Pump refill as below. His next pump refill will be scheduled on 01/03/25 PRIOR: Patient is a 72 years old male with history of right lower lumbar radiculopathy, L5-S1 right microlumbar discectomy and bilateral lateral decompression, bilateral hip replacements, feet ulcers with skin grafting, percutaneous dorsal column Boothe SCS and most recent right femur fracture presents today with severe neuropathic pain in both of his feet and ankles and widespread pain in his body. He is accompanied by his and his daughter is also present via phone speaker to assist with history intake. Patient arrived by wheelchair today due to stress fracture healing but has been using a walker for transfers and ambulation prior to this. Femur stress fracture is currently managed by [facility]. Pain is described as intermittent pulsing, throbbing, pounding, dull, sore, hurting, aching, heavy and stinging. Pain ranges from 5/10 to 9/10 in severity in the past 2 weeks. Patient reports his pain has been worsening over the past 4 years. He was followed by [facility] and received multiple injections for lumbar spinal stenosis with neurogenic claudication, physical therapy, chiropractic manipulation therapy, topical compound cream and medical management with opioid and non-opioid medications. He also tried yoga, heat and ice therapy and over the counter topical application without relief. Currently, patient is taking oxycodone 5 mg tid-qid for femur stress fracture, gabapentin 2400 mg/day and Naproxen prn. Also tried duloxetine and amitriptyline in the past with minimal effects. Patient was counseled in the past to avoid Lyrica and acetaminophen due to Hepatitis C. Patient reports SCS implant has been working well for the back but not for his feet. His program settings were readjusted many times but could not achieve reduction in lower legs and feet pain. SCS implant device was last adjusted on 03/2022. Reports progressive bilateral lower extremity weakness over the past 4 years. Patient denies bowel or bladder incontinence or saddle anesthesia. Patient reports history of DVT in his leg, cannot recall which side and location and reports history of 9 week hospitalization in 02/2021 for foot ulcers related to osteomyelitis and required skin grafts. He reports constant stinging pain in the mornings in the dorsal aspects of both feet. Patient denies diabetes mellitus. Patient is a former smoker. He used to see vascular surgeon Dr. Roman at [facility] for DVT with last visit over a year ago. Patient has significant discoloration of both feet with cold to touch, pale lower legs, absent hair growth and color changes in both dorsal surfaces of both feet. Diminished pulses with delayed capillary refill especially in his left 2nd toe which patient reports at times goes ?completely dark.? Patient presents with decreased sensation to plantar and dorsal surfaces. Reports rest and claudication pain. Patient reports constant stabbing, aching and burning pain in both feet. 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 Similar but milder neuropathy affecting upper extremities. This EMG study did not suggest demyelinating type of neuropathy. EMG study for noted for chronic right lower lumbar radiculopathy and chronic right mid to lower cervical radiculopathy. Lumbar spine MRI 12/07/21 showed moderate multilevel degenerative spondyloarthropathy of the lumbar spine and moderate to severe neural foraminal stenoses from L1-S1. Patient denies any specific cervical or lumbar pain today and is interested in interventional treatments to alleviate his ?both feet nerve pain? and increase strength in lower extremities with walking. [facility] Medical History Abdominal tenderness Actinic keratosis Anxiety Chronic pain syndrome Constipated Degenerative joint disease involving multiple joints Depression Failed back syndrome, lumbosacral Foot pain, bilateral Functional diarrhea Hard of hearing Hypertensive disorder Leg edema Lumbar disc disease Nicotine dependence Osteoarthritis Peripheral artery disease Peripheral neuropathy Raynauds disease Seborrheic dermatitis Viral hepatitis C Surgical History H/O splenectomy History of appendectomy History of back surgery History of total hip replacement Social History Alcohol intake: current Alcohol intake frequency: does not drink Patient Tobacco Use Status: Current everyday Tobacco user Tobacco use type: Cigarette Cigarette Packs Per Day: 0.5 Cigarettes Per Day: 10.0 Review of Systems Const All systems reviewed & are unremarkable except as noted in HPI and below ENT Reports Normal hearing present Neuro Reports Normal hearing present Physical Exam Vital Signs: Last Vital Signs Pulse 75 11/04/24 15:43 BP 107/65 11/04/24 15:43 Pulse Ox 93 11/04/24 15:43 Oxygen Delivery Method Room Air 11/04/24 15:43 BMI result Body Mass Index 27.1 General: Appears afebrile. Alert and oriented. Mood and affect appropriate. Follows and participates in conversation appropriately. Respiratory effort is unlabored. Able to transition from sit to stand with assistance of walker. Ambulates with bilaterally normal heel strike and toe off. Back/Spine/Pelvis Cervical Spine: No Cervical spine tenderness Thoracic/Lumbar Spine: thoracic and lumbar spine normal to inspection, Thoracic/lumbar spine scar(s), thoraco-lumbar ROM limited, No thoracic spinal tenderness and No lumbar spinal tenderness Neuro Cranial nerves: Yes Normal hearing present Assessment & Plan Assessment & Plan (1) Failed back syndrome, lumbosacral: Code(s): M96.1 - Postlaminectomy syndrome, not elsewhere classified Category: Medical Plan: ? Intrathecal pump refill. THE PATIENT CAME TODAY IN THE OR - PACU FOR THE CHANGE OF THE MEDICATION IN her PAIN PUMP. The name and date of were verified and informed consent was obtained for the procedure. ?The pump was interrogated and the residual amount of fluid was found to be1.6 mL. HE WAS POSITIONED prone on the bed AND THE AREA OF THE INTRATHECAL PUMP WAS PREPPED WITH CHLORAPREP. The fenestrated drape was sterilely applied over the area of the pump. Sterile gloves were worn and of the aspiration system was assembled containing 2 in 22 gauge noncoring needle, the needle was connected to extension tubing which was connected to the 20 cc sterile syringe. The pain pump was palpated under the skin in the patient's right buttock area. The needle was inserted through the skin and the central plug of the pain pump and fluid was aspirated. The clear fluid was going into the syringe the total amount of the fluid was 2.6 mL .. After that a new batch? of medication was obtained which was containing hydromorphone in concentration 2000 micro g/ml and 6 mg/ml of bupivacaine. . The admixture was made in 20 cc syringe prepared by [facility] compounding pharmacy. The syringe was connected to the bacterial filter, and then connected to the extension tubing. After that the medication in the syringe was slowly instilled into the pump with aspirations at 15 and 5 cc raymond.? The pump was reprogrammed for the doses of continuous hydromorphone o 96.1 mcg a day, he is also is reprogrammed to receive 128.9 micro g of Dilaudid with corresponding doses of the bupivacaine on demand 4 times a day with lockout interval of 4 hours. The medication will be administered over 5 minutes . (2) Peripheral neuropathy: Code(s): G62.9 - Polyneuropathy, unspecified Category: Medical Qualifiers: Peripheral neuropathy type: polyneuropathy, unspecified Qualified Code(s): G62.9 - Polyneuropathy, unspecified (3) Chronic pain syndrome: Code(s): G89.4 - Chronic pain syndrome Category: Medical (4) Degenerative joint disease involving multiple joints: Code(s): M15.9 - Polyosteoarthritis, unspecified Category: Medical (5) Foot pain, bilateral: Code(s): M79.671 - Pain in right foot; M79.672 - Pain in left foot Category: Medical Plan Next pump refill will be scheduled on 01/03/2025 Coding Level of Care Code Est Pt Level 3 (88129) Procedure Only Diagnoses Failed back syndrome, lumbosacral M96.1 Peripheral polyneuropathy G62.9 Peripheral neuropathy type: polyneuropathy, unspecified Chronic pain syndrome G89.4 Degenerative joint disease involving multiple joints M15.9 Foot pain, bilateral M79.671; M79.672
--- OUTSIDE RECORDS SUMMARY | 2024-11-04 17:43 | XMS_ITS | Clinical Summary ---
Author Organization [facility] Address [address] [place] [address] Care Team Providers Care Bakery Worker Conveyor Line Name Role Phone Unavailable Primary Care Provider [...] Health Maintenance Due Date Last Done Comments DTaP,Tdap,and Td Vaccines (1 - Tdap) 1969 Hepatitis A Vaccines (1 of 2 - Risk 2-dose series) 1969 Pneumococcal Vaccine: 50+ Ye ars (1 of 2 - PCV) 1969 Zoster Vaccines (1 of 2) 02/04/2000 Hepatitis B Vaccines (1 of 3 - Risk 3-dose series) 2010 RSV Immunization Adult Patie nts (1 - Risk 60-74 years 1-dose series) [...] patient's age to complete this topic Meningococcal B Vaccine Aged Out No l onger eligible based on patient's age to complete this topic RSV Immunization Patients Un derrell 20 months Aged Out No longer eligible b ased on patient's age to complete this topic Varicella Vaccines Aged Out No longer eligible based on patient's age to complete this topic Advance Directives Documents on File Type Date Recorded Patient Cotton Tipper Expl anation Health Care Decision (hx) 04/21/2021 [...]
--- OUTSIDE RECORDS SUMMARY | 2024-11-04 17:43 | XMS_ITS ---
Author Organization [facility] [place]abila philip [place] Address [address] [place] [address] Care Team Providers Care Communications Director Name Role Phone Joyce SAHNNON, Rosetta Primary Care Provider Mickey Esqueda [phone] REASON FOR VISIT Medical records request Encounters Encounter Location Date Provider Diagnosis [facility] [address] [place] [address] 08/22/2023 Mickey Bush Plan Of Treatment No Information Progress Notes * JOSEZheng HDOB:1950 (73 yo M)Acc No.[id number]:08/22/2023 Patient:?JoseZheng :1950???Age:73 Y???Sex:Male Address:[address] [place] [address] [place], [address] * true * Date:? Generated for Printi ng/Faxing/eTransmitting on:?11/04/2024 05:43 PM EDT
--- OUTSIDE RECORDS SUMMARY | 2024-11-04 17:44 | XMS_ITS ---
Author Organization [facility] Care Team Providers Care Pst Specialist Name Role Phone Cortney Mohan Unavailable Unavailable Shahla Carrion Unavailable Unavailable Samra, Bertha Unavailable Unavailable Soila, Pricila Unavailable Unavailable Marilyn, Alejandra Unavailable Unavailable Maingi, Shadrcedric Unavailable Unavailable Allergies and adverse reactions No Known Allergies Care Team Name Role Address Phone Organization Dates Shahla Carrion PCP [address] [place] [address], [facility] (Office): : [facility] 05/03/2021 - 06/08/2021 Cortney Mohan Attending Physician [place], [place], [facility], [facility] (Office): : [facility] 05/03/2021 - 06/08/2021 Bertha Cabrales Attending Physician [address] [place] [address], [place] [address], [facility] (Office): : [facility] 05/03/2021 - 06/08/2021 Pricila Cm Attending Physician [place], [place], [facility] (Office): : [facility] 05/03/2021 - 06/08/2021 Alejandra Sanders Attending Physician [address] [place] [address], [facility] [address], [place] (Office): : [phone] [facility] 05/03/2021 - 06/08/2021 Av [place] Attending Physician [address] [place] [address], [place], [address], [facility] (Office): : [facility] 05/03/2021 - 06/08/2021 Goals Section Description Status Target Date I will be maintained at a lo west dose possible and will not show S&S of ill side effects of psychotropic medications through the next review date. Active 08/06/2021 I will be safe while smoking my cigarettes at sm oking breaks Active 08/06/2021 I will follow the centers po licy r/t drug and alcohol at the facility. I will show no S&S of Drug and/or alcohol abuse through the next review date Active 08/06/2021 Resident Will Attain Their Highest Quality of Li fe at Discharge Active 08/06/2021 Resident Will Be Cared for With Dignity Active 08/06/2021 Resident Will Be Free of Non-Aggressive Behavior s Active 08/06/2021 Resident Will Be Free of Physically Aggressive B ehaviors Active 08/06/2021 Resident Will Be Free of Signs / Symptoms of Dep ression Active 08/06/2021 Resident Will Be Free of Verbally Aggressive Beh aviors Active 08/06/2021 Resident Will Be Prepared to Return to Community Upon Discharge Active 08/06/2021 Resident Will Demonstrate Effective Coping Mecha nisms Active 08/06/2021 Resident Will Not Harm Self or Others Active 08/06/2021 Resident Will Remain Safe Active 2021 Resident will maintain curre nt weight with 75% intake x2 meals through next review. Active 08/06/2021 Resident's Advanced Directives Wishes Will Be Kn own Active 08/06/2021 Spiritual Needs Will Be Identified / Managed Act salo 08/06/2021 The resident will maintain c urrent level of function in (SPECIFY) through the review date. Active 08/06/2021 Immunizations Immunization Status Vaccine Details Vaccine Code CodeSystem Alejandro e Notes Covid-19 Vaccine (Pfizer CVX 208) dose #1 completed SARS-COV-2 (COVID-19) vaccine, mRNA, spike protein, LNP, preservative free, 100 mcg/0.5mL dose or 50 mcg/0.25mL dose 207 CVX created date: 06/07/2021 administered date: 10/26/2020 Covid-19 Vaccine (Pfizer CVX 208) dose #2 completed SARS-COV-2 (COVID-19) vaccine, mRNA, spike protein, LNP, preservative free, 100 mcg/0.5mL dose or 50 mcg/0.25mL dose 207 CVX created date: 06/07/2021 administered date: 11/27/2020 Mental Status Section Date Assessment Total Score Description 06/08/2021 CAM 0 No delirium ind icated PHQ-9 00 05/10/2021 BIMS 13 cognitively int act CAM 0 No delirium ind icated PHQ-9 00 Problems Problem # Description Date of onset Resolved Date Code CodeSystem Concern Status 1 ANXIETY DISORDER, UNSPECIFIED 05/03/[address] active 2 CELLULITIS OF LEFT LOWER LIMB 05/03/[address] active 3 CELLULITIS OF RIGHT LOWER LIMB 05/03/[address] active 4 CHRONIC VIRAL HEPATITIS C 05/03/[address] active 5 ENCOUNTER FOR ADJUSTMENT AND MANAGEMENT OF VASCULAR ACCESS DEVICE 05/03/[address] active 6 ESSENTIAL (PRIMARY) HYPERTENSION 05/03/[address] active 7 INSOMNIA, UNSPECIFIED 05/03/[address] active 8 MAJOR DEPRESSIVE DISORDER, SINGLE EPISODE, UNSPECIFIED 05/03/[address] active 9 OSTEOMYELITIS, UNSPECIFIED 05/03/[address] active 10 OTHER ABNORMALITIES OF GAIT AND MOBILITY 05/03/[address] active 11 OTHER CHRONIC PAIN 05/03/[address] active 12 POLYNEUROPATHY, UNSPECIFIED 05/03/[address] active 13 TOBACCO USE 05/03/20 21 Z72.0 ICD-10-CM active 14 UNSPECIFIED OSTEOARTHRITIS, UNSPECIFIED SITE 05/03/[address] active 15 UNSPECIFIED VIRAL HEPATITIS C WITHOUT HEPATIC COMA 05/03/[address] active 16 UNSTEADINESS ON FEET 05/03/[address] active 17 WEAKNESS 05/03/[address] active Reason for Referral No Reasons for Referral Entered Social History Social History Observation Description Start Date End Date Code Code System Current Smoking Status Tobacco smoking consumption unknown 793383851 SNOMED CT Sex Assigned At Male 1950 15105-1 [facility] Vital Signs Code Code System Vitals Name Values and Units Timing Information 51141-1 [facility] Pain Level Value=0.0 06/04/2021 9279-1 [facility] Respiratory Rate Value=18.0 Units=/m in 06/04/2021 8462-4 [facility] Blood Pressure-Diastolic Value=80 Un its=mmHg 06/04/2021 8480-6 [facility] Blood Pressure-Systolic Slceg=791 Un its=mmHg 06/04/2021 8310-5 [facility] Body Temperature Value=97.8 Units=?? F 06/04/2021 8867-4 [facility] Heart rate Value=78.0 Units=/min 02/2021 45927-7 [facility] O2 % BldC Oximetry Value=98.0 Units= % 06/04/2021 73536-3 [facility] Weight Xgrtj=546.0 Units=Lbs 01/2021
--- OUTSIDE RECORDS SUMMARY | 2024-11-04 17:44 | XMS_ITS | Patient Health Record ---
Author Organization [facility] Nabilabrandi palacios [place] Address [address] [facility] [place] [address] Care Team Providers Care Dynamometer Mechanic Name Role Phone Joyce SHANNON, Rosetta Primary Care Provider Mickey Esqueda Unavailable [phone] Allergies No Known Allergies Reason For Referral No Information Medications Medication SIG (Take, Route, Fr equency, Duration) Notes Start Date End Date Status PARoxetine HCl 30 MG 1 tablet in the mor davey Orally Once a day for 30 day(s) Active dilTIAZem HCl 120 MG as directed Orally Active Gabapentin 600 MG 1 tablet Orally Once a day for 30 day(s) Active Pain Aide - as directed Active AFO-fixed . 1 . Wear daily for . 12/06/2022 Active Benadryl Active Colace Active Social History Tobacco Use: Social History Observation Description Date Details (start date - stop date) Current Smoker NA - NA Tobacco Use/Smoking Question Answer Notes Are you a: current smoker Alcohol Screen Question Answer Notes Did you have a drink containing alcohol in the p ast year? No Points 0 Interpretation Negative Tobacco use other than smoking: Question Answer Notes Are you an other tobacco user? No Problems Problem Type SNOMED Code ICD Code Onset Dates Problem Status W/U Status Risk Notes Problem Acquired hammer toe of left foot (6240936188455300) Other hammer toe(s) (acquired), left foot (M20.42) Active confirmed Problem 133626507035168 Osteoarthritis o f right ankle or foot (M19.071) Active confirmed Problem 466664374 Osteoarthritis o f left ankle or foot (M19.072) Active confirmed Plan Of Treatment Pending Test Test Name Order Date X ray : Foot, left 3V 12/06/2022 X ray : Foot, right 3V 12/06/2022 X ray : Ankle, right 3V 12/06/2022 Insurance Providers Payer Name Payer Address Payer Phone Subscriber Number Group Number Insured Name Patient Relationship to Insured Coverage Start Date Coverage End Date [employer] Medicare Open [address] [place] [address] [id number] Phyllis [place] Spouse - patient is the spouse of the insured Medical (General) History Medical History History ICD Code Anxiety Depression Arthritis Back,Hip,and Knee pain Broken bones Hepatitis C High blood pressure Liver disease Numbness Psoriasis/eczema Sciatica Stomach problems ulcer Vascular phlebitis (clots) Surgical History Surgery Date(Month/Year) hip replacement 2009, 2014 back surgery 2012, 2013 splenectomy 1973 appendectomy stimulator implant in back for pain 2018 Hospitalization History Reason Date(Month/Year) foot inf 05/2021
--- OUTSIDE RECORDS SUMMARY | 2024-11-04 17:44 | XMS_ITS | Clinical Summary ---
Author Organization [facility] Address [address] [place] [address] Care Team Providers Care Gunner'S Mate M Name Role Phone Unavailable Primary Care Provider Unavailabl e Social History Tobacco Use Types Packs/Day Years [...] 2) 02/04/2000 Influenza Vaccine 02/26/2024 COVID-19 Vaccine (1 - 2023-2 5 season) 2024 RSV Vaccine 60 years and old er and Patients (1 - 1-dose 75+ series) 2025 Hepatitis B Vaccines Aged Out No long er eligible based on patient's age to complete this topic
--- OUTSIDE RECORDS SUMMARY | 2024-11-04 17:44 | XMS_ITS | Clinical Summary ---
Author Organization [facility] Address [address] [address] Care Team Providers Care Learning And Development Specialist Name Role Phone Terry Manzano MD Primary Care Provider [phone] Allergies Active Allergy Reactions Criticality Noted Date [...] Colorectal Cancer Screening: Sigmoidoscopy 1999 Influenza Vaccine (Season Ended) 2025 Hepatitis B Vaccine Aged Out No longe r eligible based on patient's age to complete this topic Insurance Aetna Commercial A[employer]na Commercial Care Teams Learning And Development Specialist Relationship Specialty Start Date End Date Terry Manzano MD [address] [place], [place] PCP - General Internal Medicine 04/23/21
== END 2024-11-04 15:43 | disposition home or self-care (01) ==
LOC: HO.PMC 15:27
PROVIDERS: PCP Family Medicine; Visit Provider Anesthesiology
DX: M96.1 Postlaminectomy syndrome, not elsewhere classified (principal); G62.9 Polyneuropathy, unspecified; G89.4 Chronic pain syndrome; M15.9 Polyosteoarthritis, unspecified; M79.671 Pain in right foot; M79.672 Pain in left foot; Z45.1 Encounter for adjustment and management of infusion pump
CPT/HCPCS: 62370; 99213

== ENCOUNTER → 2024-11-04 15:26 | Outpatient (BNVA) | payer OTHER, SELFPAY | PROVIDERS: PCP Family Medicine; Visit Provider Anesthesiology | DX: Z45.89 Encounter for adjustment and management of other implanted devices (principal); M96.1 Postlaminectomy syndrome, not elsewhere classified; M15.9 Polyosteoarthritis, unspecified; M79.671 Pain in right foot; M79.672 Pain in left foot | CPT/HCPCS: 62370 ==

== ENCOUNTER 2024-12-28 06:16 | Outpatient (REF) | payer OTHER, SELFPAY ==
--- OUTSIDE RECORDS SUMMARY | 2024-12-28 06:18 | XMS_ITS | Clinical Summary ---
Author Organization [facility] Address [address] [place] [address] Care Team Providers Care Field Automobile Adjuster Name Role Phone Unavailable Primary Care Provider [...] Annual BMP Blood Test 07/11/2022 COVID-19 Vaccine ( - 2023-2 5 season) 2024 Influenza Vaccine (Season Ended) 2025 HIB Vaccines Aged Out No longer eligi [...] Documents on File Type Date Recorded Patient Registered Dental Hygienist Expl anation Health Care Decision (hx) 04/21/2021 [...]
== END 2024-12-28 06:17 | disposition home or self-care (01) ==
LOC: CF 06:16
PROVIDERS: Visit Provider Anesthesiology
DX: Z45.1 Encounter for adjustment and management of infusion pump (principal); M96.1 Postlaminectomy syndrome, not elsewhere classified; G62.9 Polyneuropathy, unspecified; G89.4 Chronic pain syndrome; M15.9 Polyosteoarthritis, unspecified; M79.671 Pain in right foot; M79.672 Pain in left foot
CPT/HCPCS: 62370

== ENCOUNTER 2024-12-28 12:04 | Outpatient (AMB) | payer OTHER, SELFPAY ==
[2024-12-28 12:13] VITALS: BP 119/62; PULSE 68; RESP 18; O2SAT 90
--- NOTE | 2024-12-28 12:13 | A.OFFVIS_ITS ---
Vital Signs 12/28/24 12:13 Weight 200 lb BP 119/62 Blood Pressure Location Lt brachial Position Sitting Respiration 18 Pulse 68 Pulse Source Pulse Oximeter Pulse Oximetry (%) 90 L Oxygen Delivery Method Room Air Intake Visit Reasons: ITDD Refill Shirt Folder Required: No Allergies aspirin Adverse Reaction (Unknown, Verified 12/28/24 12:13) Unknown [facility] Medical History Abdominal tenderness Actinic keratosis Anxiety Chronic pain syndrome Constipated Degenerative joint disease involving multiple joints Depression Failed back syndrome, lumbosacral Foot pain, bilateral Functional diarrhea Hard of hearing Hypertensive disorder Leg edema Lumbar disc disease Nicotine dependence Osteoarthritis Peripheral artery disease Peripheral neuropathy Raynauds disease Seborrheic dermatitis Viral hepatitis C Surgical History H/O splenectomy History of appendectomy History of back surgery History of total hip replacement Social History Alcohol intake: current Alcohol intake frequency: does not drink Patient Tobacco Use Status: Current everyday Tobacco user Tobacco use type: Cigarette Cigarette Packs Per Day: 0.5 Cigarettes Per Day: 10.0 Physical Exam Vital Signs: Last Vital Signs Pulse 68 12/28/24 12:13 Resp 18 12/28/24 12:13 BP 119/62 12/28/24 12:13 Pulse Ox 90 L 12/28/24 12:13 Oxygen Delivery Method Room Air 12/28/24 12:13 Assessment & Plan Assessment & Plan (1) Failed back syndrome, lumbosacral: Code(s): M96.1 - Postlaminectomy syndrome, not elsewhere classified Category: Medical Plan: ? Intrathecal pump refill. THE PATIENT CAME TODAY IN THE OR - PACU FOR THE CHANGE OF THE MEDICATION IN her PAIN PUMP. The name and date of were verified and informed consent was obtained for the procedure. ?The pump was interrogated and the residual amount of fluid was found to be1.6 mL. HE WAS POSITIONED prone on the bed AND THE AREA OF THE INTRATHECAL PUMP WAS PREPPED WITH CHLORAPREP. The fenestrated drape was sterilely applied over the area of the pump. Sterile gloves were worn and of the aspiration system was assembled containing 2 in 22 gauge noncoring needle, the needle was connected to extension tubing which was connected to the 20 cc sterile syringe. The pain pump was palpated under the skin in the patient's right buttock area. The needle was inserted through the skin and the central plug of the pain pump and fluid was aspirated. The clear fluid was going into the syringe the total amount of the fluid was 2.6 mL .. After that a new batch? of medication was obtained which was containing hydromorphone in concentration 2000 micro g/ml and 6 mg/ml of bupivacaine. . The admixture was made in 20 cc syringe prepared by [facility] compounding pharmacy. The syringe was connected to the bacterial filter, and then connected to the extension tubing. After that the medication in the syringe was slowly instilled into the pump with aspirations at 15 and 5 cc raymond.? The pump was reprogrammed for the doses of continuous hydromorphone o 96.1 mcg a day, he is also is reprogrammed to receive 128.9 micro g of Dilaudid with corresponding doses of the bupivacaine on demand 4 times a day with lockout interval of 4 hours. The medication will be administered over 5 minutes . The next appointment 02/21/2025. The concentration of the medication is as prevoius. (2) Peripheral neuropathy: Code(s): G62.9 - Polyneuropathy, unspecified Category: Medical Qualifiers: Peripheral neuropathy type: polyneuropathy, unspecified Qualified Code(s): G62.9 - Polyneuropathy, unspecified (3) Chronic pain syndrome: Code(s): G89.4 - Chronic pain syndrome Category: Medical (4) Degenerative joint disease involving multiple joints: Code(s): M15.9 - Polyosteoarthritis, unspecified Category: Medical (5) Foot pain, bilateral: Code(s): M79.671 - Pain in right foot; M79.672 - Pain in left foot Category: Medical Plan Next pump refill will be scheduled on 01/03/2025 Coding Level of Care Code Procedure Only Diagnoses Failed back syndrome, lumbosacral M96.1 Peripheral polyneuropathy G62.9 Peripheral neuropathy type: polyneuropathy, unspecified Chronic pain syndrome G89.4 Degenerative joint disease involving multiple joints M15.9 Foot pain, bilateral M79.671; M79.672
== END 2024-12-28 13:19 | disposition home or self-care (01) ==
LOC: HO.PMCPRC 12:04
PROVIDERS: PCP Family Medicine; Visit Provider Anesthesiology
DX: G89.4 Chronic pain syndrome (principal); M96.1 Postlaminectomy syndrome, not elsewhere classified; G62.9 Polyneuropathy, unspecified; Z45.1 Encounter for adjustment and management of infusion pump; M79.672 Pain in left foot; M15.9 Polyosteoarthritis, unspecified; M79.671 Pain in right foot
CPT/HCPCS: 62370

== ENCOUNTER 2025-01-11 14:18 | Outpatient (AMB) | payer OTHER, SELFPAY ==
--- NOTE | 2025-01-11 14:20 | A.OFFVIS_ITS ---
Intake Visit Reasons: -Video B/L leg Chronic Neuropathy Intake Note: Zheng is a 74 year old male who presents today via telehealth to follow up on bilateral leg chronic neuropathy. At their last visit patient was referred to physical therapy to work on gait, strengthening and endurance. Patient reports that he has continued neuropathy, he has tried multiple chucky of treatment with no relief. Patient was a poor historian Note: Looks like he did not go to PT. Daughter, Libby, had called back in September requesting visit be done via phone/video because he was too weak to walk Allergies aspirin Adverse Reaction (Unknown, Verified 12/28/24 12:13) Unknown HPI Comments Details: History of neuropathy, lumbar surgery, DVT. 2 back surgeries and bilateral hip replacements. Neuropathy diagnosed after these surgeries, by EMG. No history of DM or chemo. Etiology unknown. Describes shooting electric pulses on both legs. Throbs. He actually denies numbness but daughter says he does on both feet. Right foot drop, fitted for AFO, follows podiatry. Right foot with arthritis and hammer toes. History of lumbar spinal stenosis. Medication list include gabapentin. Following pain management for intrathecal thumb. Previous EMG, MRI 2021 and notes from [facility] are in his chart. PCP has expressed concern to patient/daughter about claudication. Saw Dr. Andrews 2022 who did not think this was vascular, within normal REYNALDO and ultrasound. Scheduled for video telehealth but patient unable to do video. We did an audio visit instead. His recent imaging we found were Lumbar CT from 12/07/21 and Lumbar XR from 02/19/19 done at [facility] scanned to chart. Reviewed PT note from August, they evaluated him, formulated only low goals of 500 ft ambulation with walker. Patient did not pursue further therapy after. Patient says yes chronic knee pain, neuropathy. Denies any significant back pain. He has good and bad days. His ultimate goal is to be able to walk with just a cane but then he is unwilling to go to PT. he had seen [facility] for knee pain, injections, and told that knee replacement would only provide 50/50 relief if any. He follows with pain management Dr. Ravi for pain pump management. [facility] Medical History Abdominal tenderness Actinic keratosis Anxiety Chronic pain syndrome Constipated Degenerative joint disease involving multiple joints Depression Failed back syndrome, lumbosacral Foot pain, bilateral Functional diarrhea Hard of hearing Hypertensive disorder Leg edema Lumbar disc disease Nicotine dependence Osteoarthritis Peripheral artery disease Peripheral neuropathy Raynauds disease Seborrheic dermatitis Viral hepatitis C Surgical History H/O splenectomy History of appendectomy History of back surgery History of total hip replacement Social History Alcohol intake: current Alcohol intake frequency: does not drink Patient Tobacco Use Status: Current everyday Tobacco user Tobacco use type: Cigarette Cigarette Packs Per Day: 0.5 Cigarettes Per Day: 10.0 Telehealth Telehealth Telehealth Platform: Telephone Location of provider rendering services: practice address Location of patient: address on file Patient Identification confirmed using: Name, : Yes Telehealth method: voice only Patient verbally consented to treatment: Yes Patient verbally consented to billing insurance company: Yes Patient informed of any privacy concerns related to visit: Yes Minutes spent on Phone/Video with Pt.: 10 Assessment & Plan Assessment & Plan (1) Failed back syndrome, lumbosacral: Code(s): M96.1 - Postlaminectomy syndrome, not elsewhere classified Category: Medical (2) Peripheral neuropathy: Code(s): G62.9 - Polyneuropathy, unspecified Category: Medical Qualifiers: Peripheral neuropathy type: polyneuropathy, unspecified Qualified Code(s): G62.9 - Polyneuropathy, unspecified Plan Chronic pain, 2 past lumbar surgeries, told to have lumbar spinal stenosis, peripheral neuropathy etiology unknown, past bilateral hip replacements, bilateral knee arthritis not a candidate for knee replacements, has intrathecal pain pump managed by pain management, history of DVT. Most of his weakness and functional decline I thought was coming from bilateral footdrop. No change in functional level. Patient unwilling to go to physical therapy. He goes to [facility] for knee injections. Assessment and plan discussed with patient, and patient was agreeable. All questions were answered thoroughly. Sary Stevens MD, HECTOR Board Certified, [place] [employer] and [employer] (ABPMR) Board Certified, [place] [employer] (ABEM) Coding Level of Care Code Tele Est Pt Level 3 (96093) Diagnoses Failed back syndrome, lumbosacral M96.1 Peripheral polyneuropathy G62.9 Peripheral neuropathy type: polyneuropathy, unspecified
--- OUTSIDE RECORDS SUMMARY | 2025-01-11 16:32 | XMS_ITS ---
[facility] Unknown Problems Problem Status Onset Date Problem Type Date of Resoluti on Source Bilateral hearing loss, unspecified hearing loss type active [facility]osis[facility] Organization Name Specialty Phone Email Start Date End Da kenya [facility] 11/19/2024
== END 2025-01-11 14:28 | disposition home or self-care (01) ==
PROVIDERS: PCP Family Medicine; Visit Provider Physical Medicine & Rehabilitation
DX: M96.1 Postlaminectomy syndrome, not elsewhere classified (principal); G62.9 Polyneuropathy, unspecified
CPT/HCPCS: 98012

== ENCOUNTER → 2025-01-11 14:18 | Outpatient (BNVA) | payer OTHER, SELFPAY | PROVIDERS: PCP Family Medicine; Visit Provider Physical Medicine & Rehabilitation ==

== ENCOUNTER 2025-02-21 13:35 | Outpatient (AMB) | payer OTHER, SELFPAY ==
--- NOTE | 2025-02-21 13:37 | MHC.OFFVIS ---
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 He reports adequate pain control with the current pain management regimen, although he experiences pain when walking. The patient utilizes a wheelchair for most transfers and mobility due to his chronic back pain and peripheral neuropathy. Denies any recent cough, cold, infection, fever or other significant changes in medical history since last office visit. - Affect: No significant impact on mood reported. - Analgesia: Hydromorphone 2 mg/mL and bupivacaine 12 mg/mL via ITDD pain pump; adequate pain control reported - Adverse Effects: Occasional tiredness, no significant urinary retention or other side effects - Activities of Daily Living: Uses wheelchair for mobility due to back problems and neuropathy - Aberrant Drug Related Behaviors: None reported PRIOR 11/04/24 Dr. Ravi: Zheng is here to refill his intrathecal pain pump. He reports adequate pain control. Pump refill as below. His next pump refill will be scheduled on 01/03/25 PRIOR: Patient is a 72 years old male with history of right lower lumbar radiculopathy, L5-S1 right microlumbar discectomy and bilateral lateral decompression, bilateral hip replacements, feet ulcers with skin grafting, percutaneous dorsal column Boothe SCS and most recent right femur fracture presents today with severe neuropathic pain in both of his feet and ankles and widespread pain in his body. He is accompanied by his and his daughter is also present via phone speaker to assist with history intake. Patient arrived by wheelchair today due to stress fracture healing but has been using a walker for transfers and ambulation prior to this. Femur stress fracture is currently managed by [facility]. Pain is described as intermittent pulsing, throbbing, pounding, dull, sore, hurting, aching, heavy and stinging. Pain ranges from 5/10 to 9/10 in severity in the past 2 weeks. Patient reports his pain has been worsening over the past 4 years. He was followed by [facility] and received multiple injections for lumbar spinal stenosis with neurogenic claudication, physical therapy, chiropractic manipulation therapy, topical compound cream and medical management with opioid and non-opioid medications. He also tried yoga, heat and ice therapy and over the counter topical application without relief. Currently, patient is taking oxycodone 5 mg tid-qid for femur stress fracture, gabapentin 2400 mg/day and Naproxen prn. Also tried duloxetine and amitriptyline in the past with minimal effects. Patient was counseled in the past to avoid Lyrica and acetaminophen due to Hepatitis C. Patient reports SCS implant has been working well for the back but not for his feet. His program settings were readjusted many times but could not achieve reduction in lower legs and feet pain. SCS implant device was last adjusted on 03/2022. Reports progressive bilateral lower extremity weakness over the past 4 years. Patient denies bowel or bladder incontinence or saddle anesthesia. Patient reports history of DVT in his leg, cannot recall which side and location and reports history of 9 week hospitalization in 02/2021 for foot ulcers related to osteomyelitis and required skin grafts. He reports constant stinging pain in the mornings in the dorsal aspects of both feet. Patient denies diabetes mellitus. Patient is a former smoker. He used to see vascular surgeon Dr. Roman at [facility] for DVT with last visit over a year ago. Patient has significant discoloration of both feet with cold to touch, pale lower legs, absent hair growth and color changes in both dorsal surfaces of both feet. Diminished pulses with delayed capillary refill especially in his left 2nd toe which patient reports at times goes ?completely dark.? Patient presents with decreased sensation to plantar and dorsal surfaces. Reports rest and claudication pain. Patient reports constant stabbing, aching and burning pain in both feet. 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 Similar but milder neuropathy affecting upper extremities. This EMG study did not suggest demyelinating type of neuropathy. EMG study for noted for chronic right lower lumbar radiculopathy and chronic right mid to lower cervical radiculopathy. Lumbar spine MRI 12/07/21 showed moderate multilevel degenerative spondyloarthropathy of the lumbar spine and moderate to severe neural foraminal stenoses from L1-S1. Patient denies any specific cervical or lumbar pain today and is interested in interventional treatments to alleviate his ?both feet nerve pain? and increase strength in lower extremities with walking. [facility] Medical History Peripheral artery disease Raynauds disease Chronic pain syndrome Seborrheic dermatitis Viral hepatitis C Peripheral neuropathy Osteoarthritis Nicotine dependence Lumbar disc disease Leg edema Hypertensive disorder Hard of hearing Functional diarrhea Foot pain, bilateral Degenerative joint disease involving multiple joints Failed back syndrome, lumbosacral Depression Constipated Anxiety Actinic keratosis Abdominal tenderness Surgical History History of back surgery History of total hip replacement History of appendectomy H/O splenectomy Social History Alcohol intake: current Alcohol intake frequency: does not drink Patient Tobacco Use Status: Current everyday Tobacco user Tobacco use type: Cigarette Cigarette Packs Per Day: 0.5 Cigarettes Per Day: 10.0 Review of Systems Const All systems reviewed & are unremarkable except as noted in HPI and below Physical Exam General: Appears afebrile. Alert and oriented. Mood and affect appropriate. Follows and participates in conversation appropriately. Respiratory effort is unlabored. No cough. Able to transition from sit to stand with assistance of wheelchair. Eyes General: appearance normal, both eyes and all related structures Resp Effort & Inspection: normal respiratory effort, able to speak in complete sentences, no cough, not labored and no respiratory distress General: Yes no CVA tenderness Back/Spine/Pelvis Back: no CVA tenderness Cervical Spine: cervical ROM normal and No Cervical spine tenderness Thoracic/Lumbar Spine: thoracic and lumbar spine normal to inspection, Thoracic/lumbar spine scar(s), pain with thoraco-lumbar ROM, thoraco-lumbar ROM limited, No thoracic spinal tenderness and No lumbar spinal tenderness Sacroiliac joints: bilaterally nontender Psych Appearance: grossly normal Mental Status: mental status grossly normal Speech and movement: Normal speech and movement present Affect: normal affect Attitude: cooperative Thought process: Normal thought process present Thought content: Normal thought content present, suicidality (none), no homicidality and No Depressive thoughts present Insight: Good insight present (Psych) Judgement: Good judgement present (Psych) Office Procedures Details: Patient identification: Verified using two identifiers. Device interrogation: Interrogation confirmed pump function within expected parameters. Current reservoir volume and infusion rate were noted. Report scanned into EMR. Medication information: hydromorphone 2mg/bupivacaine 12mg/ml in 20 ml of PF NS Allergies: Aspirin Informed consent: Obtained verbally/written. Procedure explained, including risks (infection, overdose, withdrawal, equipment failure), benefits, and alternatives. Patient positioning: Left lateral decubitus Site preparation: Pump site prepared with chlorhexidine and sterile drape applied. Aseptic technique strictly followed. Pump refill port located via palpation and template guidance. Accessed with: Refill 22-gauge needle using sterile technique to access port.? [place] aspirated to ensure removal of residual medication and verify placement. 3.5 mL of hydromorphone 2mg/bupivacaine 12mg/ml removed, discarded. Refill performed Administered hydromorphone 2mg/bupivacaine 12mg/ml in PF NS 20 ml from AIS; delivery ensured through interval aspiration. Needle removed and site covered with sterile dressing. Pump programmed as per protocol with updated medication volume and same dose parameters. See scanned report for more details. -Identified next refill date as April 20, 2025. -No complications encountered and discharged in stable condition. 43496 - Refill Procedure code (CPT) selection complete Results Reviewed Results Reviewed: CT LUMBAR SPINE WITHOUT CONTRAST 12/07/21 at [facility] CLINICAL INFORMATION: Low back pain. Fracture. COMPARISON: Lumbar spine radiographs from 02/19/2019. Lumbar spine MRI from 07/06/2015. FINDINGS: Moderate right convex curvature of the upper lumbar spine. Anterior wedge deformity of the L1 vertebral body with 80% loss of central body height (similar to 2019). No evidence of acute fracture or traumatic subluxation. The remaining vertebral body heights are maintained. Advanced degenerative disc disease at L4-L5 and L5-S1. Moderate degenerative disc disease from T12-L3. No suspicious lytic or sclerotic osseous lesions. Partially visualized thoracic spinal stimulator leads with generator pack in the subcutaneous tissues of the left-sided back. Changes of L4 left-sided hemilaminectomy. No significant abnormalities of the paraspinal musculature. The spleen is not well demonstrated within the [id number] of this exam. There is a multilobulated structure with peripheral calcifications between the tail the pancreas and left kidney, measuring up to 5.5 cm. Few scattered nonobstructive renal stones bilaterally, measuring up to 0.5 cm. There is a 1.6 cm nodule in the lateral arm of the right adrenal gland that measures 5 Hounsfield units, consistent with a lipid rich adrenal adenoma. Otherwise, limited evaluation of the intra-abdominal structures without significant abnormalities. Moderate calcific atherosclerotic disease of the abdominal aorta and iliac arteries. Aneurysmal dilatation of the terminal aorta, measuring up to 2.7 cm in diameter. AXIAL SPINAL LEVELS: T12-L1: Mild diffuse disc bulge. There is mild bilateral facet joint arthropathy. There is no neural foraminal stenosis. There is no demonstrated spinal canal stenosis. L1-L2: Mild diffuse disc bulge. There is moderate bilateral facet joint arthropathy. There is severe left and moderate right neural foraminal stenosis. There is no demonstrated spinal canal stenosis. L2-L3: Shallow diffuse disc bulge. There is severe bilateral facet joint arthropathy. There is moderate bilateral neural foraminal stenosis. There appears to be mild spinal canal stenosis. L3-L4: Moderate diffuse disc bulge. There is severe right and moderate left facet joint arthropathy. There is moderate to severe bilateral neural foraminal stenosis. There appears to be mild spinal canal stenosis. L4-L5: Changes of left-sided hemilaminectomy. Moderate diffuse disc bulge with posterior osseous ridging. There is severe right and moderate left facet joint arthropathy. There is severe right and moderate left neural foraminal stenosis. Posterior decompression. There is no demonstrated spinal canal stenosis. L5-S1: Moderate diffuse disc bulge with posterior osseous ridging. There is moderate to severe bilateral facet joint arthropathy. There is moderate to severe bilateral neural foraminal stenosis. There is no demonstrated spinal canal stenosis. IMPRESSION: 1. No evidence of acute fracture or traumatic subluxation of the lumbar spine. 2. Chronic anterior wedge deformity of the L1 vertebral body. 3. Moderate multilevel degenerative spondyloarthropathy of the lumbar spine as described in detail above. Most notably on this limited exam without intrathecal contrast, there appears to be mild spinal canal stenosis at L2-L3 and L3-L4. Moderate to severe neural foraminal stenoses from L1-S1. 4. On limited evaluation of the intra-abdominal structures there is a nonspecific multilobulated structure with peripheral calcifications between the tail of the pancreas and the left kidney. While this may represent remnant splenic tissue, it would be better characterized with dedicated abdominal imaging. 5. Mild aneurysmal dilatation of the terminal aorta, measuring 2.7 cm in diameter (2.3 cm in 2015). There is also be better characterized with dedicated imaging of the abdominal aorta. 6. A 1.6 cm nodule in the right adrenal gland is most consistent with a lipid rich adenoma. 7. Nonobstructive nephrolithiasis. EXAM: X-RAY LUMBAR SPINE 4+ VIEWS 02/19/2019 at [facility] INDICATION: Low back pain after a fall. FINDINGS AND IMPRESSION: There is an age-indeterminate L1 compression fracture with approximately 33% vertebral body height loss anteriorly. There is dextroconvex curvature centered at L2. No significant spondylolisthesis. Spondylotic changes with disc height loss, endplate degenerative change, and facet arthropathy are most pronounced from L4 to S1. Bilateral total hip arthroplasties are partially imaged. Aortoiliac calcifications are noted. EMG 03/2018 Assessment & Plan Assessment & Plan (1) Failed back syndrome, lumbosacral: Code(s): M96.1 - Postlaminectomy syndrome, not elsewhere classified Category: Medical (2) Foot pain, bilateral: Code(s): M79.671 - Pain in right foot; M79.672 - Pain in left foot Category: Medical (3) Peripheral neuropathy: Code(s): G62.9 - Polyneuropathy, unspecified Category: Medical Qualifiers: Peripheral neuropathy type: polyneuropathy, unspecified Qualified Code(s): G62.9 - Polyneuropathy, unspecified (4) Chronic pain syndrome: Code(s): G89.4 - Chronic pain syndrome Category: Medical Plan Patient is status post refill of ITDD. Patient tolerated procedure well and was discharged home in stable condition with discharge instructions.?Continue with current pump settings. Next refill scheduled for 04/20/25. All questions and concerns have been answered and patient agreed with the plan. Follow up as needed. Orders: Orders AMB Intrathecal Drug Delivery System Today G62.9 - Polyneuropathy, unspecified, G89.4 - Chronic pain syndrome, M79.671 - Pain in right foot, M79.672 - Pain in left foot, M96.1 - Postlaminectomy syndrome, not elsewhere classified Coding Level of Care Code Est Pt Level 3 (04175) Procedure Only Diagnoses Failed back syndrome, lumbosacral M96.1 Foot pain, bilateral M79.671; M79.672 Peripheral polyneuropathy G62.9 Peripheral neuropathy type: polyneuropathy, unspecified Chronic pain syndrome G89.4 CPT Codes Intraethecal Drug Delivery System - CPT: 06268 - Refill ([id number])
[2025-02-21 13:45] VITALS: BP 165/87; PULSE 80; RESP 16; O2SAT 97; BMI 27.4
[2025-02-21 14:12] VITALS: BP 152/75; PULSE 80; RESP 16; O2SAT 97
--- OUTSIDE RECORDS SUMMARY | 2025-02-21 14:16 | XMS_ITS ---
Author Name [facility] Organization Unknown Problems Problem Status Onset Date Problem Type Date of Resoluti on Source Bilateral hearing loss, unspecified hearing loss type active EncounterDiagnosisAct H [facility] Care Team Organization Name Specialty Phone Email Start Date End Da kenya [facility] 11/19/2024
--- OUTSIDE RECORDS SUMMARY | 2025-02-21 14:16 | XMS_ITS | Data Portability ---
Author Organization [facility], [facility] Address [address] [place] [address] Assessment Encounter Date Assessment Date Assessment LastModified by Organization Details LastModified Time 12/06/2024 12/06/2024 I am seeing the patient today under the supervision of Dr. Sanches who was available but who did not see the patient. HPI: Patient comes in for recheck of bilateral knee pain. Has known osteoarthritis in the medial/lateral compartment of the knee(s). Been treated conservatively with cortisone injection to this point with 3 months relief of symptoms. No new injury or modalities. Past family, medical, social history and review of systems has been reviewed, updated and is located in the patient s chart. Examination:The patient is well appearing and in no apparent distress. Alert and oriented x3. Vital signs per intake sheet. Examination of the bilateral knee reveals Mild effusion. No erythema or warmth. Decreased range of motion. Right knee valgus deformity. Left knee varus deformity. Point tender over the medial and lateral joint line. Calf soft and nontender. 4+/5 strength of knee flexion extension. Impression: Osteoarthritis, bilateral knee Plan: Nature of the diagnosis discussed with the patient today. Both surgical and nonsurgical options were reviewed. Conservative measures were discussed at length including but not limited to physical therapy, bracing, anti-inflammatori es and injection therapies. Please see the procedure note for documentation about the injection performed today. Follow-up with us in 3 months for discussion of continued conservative management versus surgical management. [email or web address] Not available 12/06/2024 08:21:48 Plan of Treatment Reminders Order Date Submit Date Provider Last Modified By Organization Details Last Modified Time Details Appointments RECHECK 15 2024 03:00P Merari Villarreal PA-C Not available Not available Not available Lab None recorded . Referral None recorded . Procedures None recorded . Surgeries None recorded . Imaging None recorded . Medication Orders None recorded . Patient TargetsNo targets recorded. Patient InstructionsNo instructions recorded. Reason for Referral None Reported. Results Created Date Observation Date Name Description Value Unit Range Abnormal Flag Note LastModifiedBy Organization Detail LastModifiedTime 03/26/2007/08/2022 imagi ng/di agnos tic resul t No observ ation record ed. [email or web address] Not Available 02/27 16:50:54 03/26/20 24 12/11/2021 imagi ng/di agnos tic resul t No observ ation record ed. [email or web address] Not Available 02/27 16:51:04 Result Notes None recorded. Problems Name Problem SNOMED Code Status Onset Date Resolution Date Notes Provider Name and Address Organization Details Recorded Time Primary gonarthrosi s, bilateral [id number] [facility] 16:07:32 Problem Notes None recorded. Procedures Surgical History Date Name Laterality Status Provider Name and Address Organization Details Recorded Time 5 JZKNEE INJ Rob completed Yaya Villarreal PA-C [address] [place] [address], [phone], [facility] 12/06/2024 08:20:32 4 Knee Kenalog 40 1cc Injection, Bilateral completed Noni Plasencia PA-C [address] [facility], [place], [address], [facility] 06/25/2024 16:36:34 4 Knee Kenalog 40 1cc Injection, Bilateral completed Noni Plasencia PA-C [address], [place], [address], [facility] 03/03/2024 16:20:19 Imaging Results None recorded. Procedure Notes None recorded. Medical Equipment None Reported. Allergies No known drug allergies Medications Name Sig Start Date Stop Date Status Note LastModified by Organization Details LastModified Time clonidine HCl 0.1 mg tablet TAKE 1/2 TABLET BY MOUTH 3 TIMES A DAY NEEDED FOR WITHDRAWA L SYMPTOMS FOR 3 DAYS active Not Available Not Available No t Available gabapentin 600 mg tablet TAKE 1 TABLET BY MOUTH THREE TIMES A DAY 12/06 completed Not Available Not Available Not Available hydromorpho ne 2 mg tablet TAKE 1/2 TO 1 TABLET BY MOUTH EVERY 8 HOURS NEEDED FOR PAIN active Not Available Not Available No t Available paroxetine 30 mg tablet TAKE 2 TABLETS BY MOUTH EVERY DAY active Not Available Not Available No t Available lisinopril 10 mg tablet TAKE 1 TABLET BY MOUTH EVERY DAY active Not Available Not Available No t Available gabapentin 300 mg capsule TAKE 1 TO 2 CAPSULES BY MOUTH 3 TIMES A DAY NOT TO EXCEED 5 CAPS PER DAY active Not Available Not Available No t Available diltiazem CD 120 mg capsule,ext ended release 24 hr TAKE 1 CAPSULE BY MOUTH EVERY DAY 12/06 completed Not Available Not Available Not Available hydroxyzine HCl 25 mg tablet TAKE 1 TABLET BY MOUTH 3 TIMES A DAY NEEDED FOR ANXIETY FOR 3 DAYS 12/06 completed Not Available Not Available Not Available mupirocin 2 % topical ointment APPLY ONCE DAILY TO BIOPSY SITE UNTIL HEALED active Not Available Not Available No t Available furosemide 20 mg tablet TAKE 1 TABLET BY MOUTH EVERY DAY FOR 7 DAYS active Not Available Not Available No t Available oxycodone HCl-oxycodo ne-ASA 1-2 TABS PO Q4-6HRS PRN PAINDO NOT DRIVE WHILE TAKING THIS MEDICATIO N 12/18 completed Statu s: 'Disc ontin ued'; Not Available Not Available Not Available naloxone 4 mg/actuatio n nasal spray 1 SPRAY INTO ONE NOSTRIL. CALL 911. REPEAT AFTER 2-3 MIN IF NO OR MINIMAL RESPONSE NEEDED active Not Available Not Available No t Available Vitals Date Recorded Body height Body mass index (BMI) Body weight Provider Name and Address Organization Details Last Updated DateTime 12/06/2024 182.88 cm 27.1 kg/m2 65239.47 g Bella Walsh [facility] 12/06/2024 15:06:10 Date Recorded Body height Provider Name an d Address Organization Details Last Updated DateTime 03/03/2024 182.88 cm ROBBY FERGUSON [facility] 03/03/2024 15:14:17 Date Recorded Body height Body mass index (BMI) Body weight Provider Name and Address Organization Details Last Updated DateTime 06/25/2024 182.88 cm 25.8 kg/m2 07430.55 g tayler ivette [place] [facility] [place] [facility] 06/25/2024 15:35:26 Social History None recorded. Functional Status None recorded. Mental Status None recorded. Family History Nothing Reported. Medical History No medical history recorded. Past Encounters Encounter ID Performer Location Encounter Start Date Encounter Closed Date Diagnosis/Indication Diagnosis SNOMED-CT Code Diagnosis ICD10 Code Diagnosis Note [id number] Noni Plasencia PA-C [facility] [address] [place] [address] 03/03/2024 15:04:46 03/25/2024 09:33:01 Bilateral osteoarthritis of knees [id number] 27876 M17.0 [id number] Noni Plasencia PA-C [facility] [address] [place] [address] 06/25/2024 15:20:29 07/19/2024 10:17:46 Primary gonarthrosis, bilateral [id number] M17.0 [id number] Yaya Villarreal PA-C [facility] [address] [place] [address] 12/06/2024 14:58:37 12/14/2024 10:29:25 Primary gonarthrosis, bilateral [id number] M17.0 Health Concerns Section Related Observation LastModified by Organization Detai ls LastModified Time None Recorded Concern Status LastModified by Organization Details LastModified Time None Recorded Advance Directives Directive None Recorded Payers Insurance Date Sequence Insurance Name Policy Number Policy Bucio Covered Member ID Bucio Member ID Guarantor Name 12/14/2024 1 [employer] (POS II) [id number] Regina Ireland [id number] Zheng Ireland
--- OUTSIDE RECORDS SUMMARY | 2025-02-21 14:16 | XMS_ITS | Clinical Summary ---
Author Organization [facility] [address] [facility] [place] Address [address] [place] [address] Phone Care Team Providers Care Director Medical Surgical Name Role Phone Unavailable Primary Care Provider Unavailabl e Encounters Date Type Department Care Team Description 01/14/2025 Telephone Gastroenterology - [address] [address] Jesús Maurer MD from Last 3 Months Surgical History Surgery Date Site/Laterality Comments OTHER SURGICAL HISTORY PROCEDURE: HISTORICAL SPLENECTOMY BACK SURGERY PROCEDURE: HISTORICAL BACK SURGERY; COMMENT: dr ruiz Medical History Medical History Date Comments Hepatitis C DX:Hepatitis C; COMMENT: dr maurer Chronic back pain DX:Chronic farzad k pain [...] Maintenance Due Date Last Done Comments Hepatitis A Vaccines (1 of 2 - Risk 2-dose series) 1969 Zoster Vaccines (1 of 2) 02/04/2000 Hepatitis B Vaccines (1 of 3 - Risk 3-dose series) 2010 Cholesterol Screening (Lipid Panel) 06/30/2022 Colorectal Cancer Screening: Colonoscopy 06/30/2022 09/07/2004 Falls Risk Assessment 06/30/2022 Hepatitis C Screening 06/30/2022 Social Influencers of Health Screening 06/30/2022 Hypertension/CHF/CAD Annual BMP Blood Test 07/11/2022 COVID-19 Vaccine ( season) 2024 01/31/2022, 06/20/2021, 12/06/2020, Additional history exists Pneumococcal Vaccine: 50+ Years (3 of 3 - PCV20 or PCV21) 06/14/2024 06/14/2019, 03/17/2013 Depression Screening 07/28/2024 RSV Immunization Adult Patients (1 - 1-dose 75+ series) 2025 Influenza Vaccine (#1) 2025 4, 06/20/2021, 06/14/2019 DTaP,Tdap,and Td Vaccines (2 - Td or Tdap) 09/18/2033 09/18/2023 HIB Vaccines Aged Out No longer eligi [...] to complete this topic RSV Immunization Patients Under 20 months Aged Out No longer eligible based on patient's age to complete this topic Varicella Vaccines Aged Out No longer eligible based on patient's age to complete this topic Procedures Procedure Name Priority Date/Time Associated Diagnosis Comments EXTERNAL COLONOSCOPY REPORT Routine 09/07/2004 1:58 PM EST from Last 3 Months or Most Recently Relevant to Health Maintenance Results * External Colonoscopy Report (09/07/2004 1:58 PM EST) Anatomical Region Laterality Modality Endoscopy us Historical Provider MD SCHULZ~PROCEDURE ORDERABLES F inal Result from Last 3 Months or Most Recently Relevant to Health Maintenance Insurance MEDICARE Advance Directives Documents on File Type Date Recorded 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
--- OUTSIDE RECORDS SUMMARY | 2025-02-21 14:16 | XMS_ITS | Clinical Summary ---
Author Organization [facility] Address [address] [place] [id number] Care Team Providers Care Staff Radiation Therapist Name Role Phone Unavailable Primary Care Provider Unavailabl e Social History Tobacco Use Types Packs/Day Years Used Date Smoking Tobacco: Never Assessed Sex and Gender Information Value Date Recorded Sex Assigned at Not on file Legal Sex Male 12:23 PM EST Gender Identity Not on file Sexual Orientation Not on file Plan of Treatment Upcoming Encounters Date Type Department Care Team (Late st Contact Info) Description 04/25/2025 1:30 PM EDT Clinical Support [facility] [address] [place] [phone] Osman Abbott MD [address] [place] [address] [phone] Trinidad Morrell Au.D [address] [place] [phone] Health Maintenance Due Date Last Done Comments Hepatitis C Virus Screening 1950 DTaP/Tdap/Td Vaccines (1 - Tdap) 1969 Colonoscopy 1995 Pneumococcal Vaccines 50+ (1 of 1 - PCV) 02/04/2000 Zoster (Shingles) Vaccine (1 of 2) 02/04/2000 COVID-19 Vaccine ( - season) 2024 01/31/2022, 06/20/2021, 12/06/2020, Additional history exists RSV Vaccine 60 years and older and Patients (1 - 1-dose 75+ series) 2025 Influenza Vaccine 02/25/2025 09/18/2023, , 06/14/2019 Hepatitis B Vaccines Aged Out No long er eligible based on patient's age to complete this topic Insurance AETNA HMO/POS
--- OUTSIDE RECORDS SUMMARY | 2025-02-21 14:16 | XMS_ITS | Clinical Summary ---
Author Organization [facility] Facility Address [address] [address] Care Team Providers Care Tug Boat Engineer Name Role Phone Terry Manzano MD Primary Care Provider [phone] Allergies Active Allergy Reactions Criticality Noted Date [...] ars (1 of 2 - PCV) 1969 Colorectal Cancer Screening: Annual FOBT 1999 Colorectal Cancer Screening: Colonoscopy 1999 Colorectal Cancer Screening: Sigmoidoscopy 1999 Influenza Vaccine (#1) 2025 Hepatitis B Vaccine Aged Out No longe r eligible based on patient's age to complete this topic Insurance Aetna Commercial Aetna Commercial Care Teams Tug Boat Engineer Relationship Specialty Start Date End Date Terry Manzano MD [address] [place], [place] PCP - General Internal Medicine 04/23/21
== END 2025-02-21 14:10 | disposition home or self-care (01) ==
LOC: HO.PMC 13:36
PROVIDERS: PCP Family Medicine; Visit Provider Nurse Practitioner Family
DX: M96.1 Postlaminectomy syndrome, not elsewhere classified (principal); M79.671 Pain in right foot; M79.672 Pain in left foot; G62.9 Polyneuropathy, unspecified; Z45.1 Encounter for adjustment and management of infusion pump; G89.4 Chronic pain syndrome
CPT/HCPCS: 62370; 99213

== ENCOUNTER → 2025-02-21 13:35 | Outpatient (BNVA) | payer OTHER, SELFPAY | PROVIDERS: PCP Family Medicine; Visit Provider Nurse Practitioner Family | DX: M79.671 Pain in right foot (principal); M79.672 Pain in left foot; G89.4 Chronic pain syndrome; G62.9 Polyneuropathy, unspecified | CPT/HCPCS: 62370 ==

== ENCOUNTER 2025-04-20 15:06 | Outpatient (AMB) | payer OTHER, SELFPAY ==
[2025-04-20 15:28] VITALS: BP 136/66; PULSE 69; RESP 18; O2SAT 92
--- NOTE | 2025-04-20 15:28 | MHC.OFFVIS ---
Vital Signs 04/20/25 15:28 Weight 200 lb BP 136/66 Blood Pressure Location Lt brachial Position Sitting Respiration 18 Pulse 69 Pulse Source Pulse Oximeter Pulse Oximetry (%) 92 Oxygen Delivery Method Room Air Intake Visit Reasons: ITDD REFILL Allergies aspirin Adverse Reaction (Unknown, Verified 02/21/25 14:13) Unknown HPI Comments Details: Zheng is here to refill his intrathecal pain pump. He reports adequate pain control. Pump refill as below. Denies side effects of intrathecal medications. Reports improved mobility and activities of daily living on intrathecal medications. See doses and refill as below. His next pump refill will be scheduled on 06/19/2025 PRIOR: Patient is a 72 years old male with history of right lower lumbar radiculopathy, L5-S1 right microlumbar discectomy and bilateral lateral decompression, bilateral hip replacements, feet ulcers with skin grafting, percutaneous dorsal column Boothe SCS and most recent right femur fracture presents today with severe neuropathic pain in both of his feet and ankles and widespread pain in his body. Pain ranges from 5/10 to 9/10 in severity in the past 2 weeks. Patient reports his pain has been worsening over the past 4 years. He was followed by [facility] and received multiple injections for lumbar spinal stenosis with neurogenic claudication, physical therapy, chiropractic manipulation therapy, topical compound cream and medical management with opioid and non-opioid medications. He also tried yoga, heat and ice therapy and over the counter topical application without relief. Currently, patient is taking oxycodone 5 mg tid-qid for femur stress fracture, gabapentin 2400 mg/day and Naproxen prn. Also tried duloxetine and amitriptyline in the past with minimal effects. Patient was counseled in the past to avoid Lyrica and acetaminophen due to Hepatitis C. Patient reports SCS implant has been working well for the back but not for his feet. His program settings were readjusted many times but could not achieve reduction in lower legs and feet pain. SCS implant device was last adjusted on 03/2022. Reports progressive bilateral lower extremity weakness over the past 4 years. Patient denies bowel or bladder incontinence or saddle anesthesia. Patient reports history of DVT in his leg, cannot recall which side and location and reports history of 9 week hospitalization in 02/2021 for foot ulcers related to osteomyelitis and required skin grafts. He reports constant stinging pain in the mornings in the dorsal aspects of both feet. Patient denies diabetes mellitus. Patient is a former smoker. He used to see vascular surgeon Dr. Roman at [facility] for DVT with last visit over a year ago. Patient has significant discoloration of both feet with cold to touch, pale lower legs, absent hair growth and color changes in both dorsal surfaces of both feet. Diminished pulses with delayed capillary refill especially in his left 2nd toe which patient reports at times goes ?completely dark.? Patient presents with decreased sensation to plantar and dorsal surfaces. Reports rest and claudication pain. Patient reports constant stabbing, aching and burning pain in both feet. 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 Similar but milder neuropathy affecting upper extremities. This EMG study did not suggest demyelinating type of neuropathy. EMG study for noted for chronic right lower lumbar radiculopathy and chronic right mid to lower cervical radiculopathy. Lumbar spine MRI 12/07/21 showed moderate multilevel degenerative spondyloarthropathy of the lumbar spine and moderate to severe neural foraminal stenoses from L1-S1. Patient denies any specific cervical or lumbar pain today and is interested in interventional treatments to alleviate his ?both feet nerve pain? and increase strength in lower extremities with walking. ON LICENSE OF [facility] Medical History Peripheral artery disease Raynauds disease Chronic pain syndrome Seborrheic dermatitis Viral hepatitis C Peripheral neuropathy Osteoarthritis Nicotine dependence Lumbar disc disease Leg edema Hypertensive disorder Hard of hearing Functional diarrhea Foot pain, bilateral Degenerative joint disease involving multiple joints Failed back syndrome, lumbosacral Depression Constipated Anxiety Actinic keratosis Abdominal tenderness Surgical History History of back surgery History of total hip replacement History of appendectomy H/O splenectomy Social History Alcohol intake: current Alcohol intake frequency: does not drink Patient Tobacco Use Status: Current everyday Tobacco user Tobacco use type: Cigarette Cigarette Packs Per Day: 0.5 Cigarettes Per Day: 10.0 Review of Systems Const All systems reviewed & are unremarkable except as noted in HPI and below Physical Exam Vital Signs: Last Vital Signs Pulse 69 04/20/25 15:28 Resp 18 04/20/25 15:28 BP 136/66 04/20/25 15:28 Pulse Ox 92 04/20/25 15:28 Oxygen Delivery Method Room Air 04/20/25 15:28 General: Appears afebrile. Alert and oriented. Mood and affect appropriate. Follows and participates in conversation appropriately. Respiratory effort is unlabored. No cough. Able to transition from sit to stand with assistance of wheelchair. Eyes General: appearance normal, both eyes and all related structures Resp Effort & Inspection: normal respiratory effort, able to speak in complete sentences, no cough, not labored and no respiratory distress General: Yes no CVA tenderness Back/Spine/Pelvis Back: no CVA tenderness Cervical Spine: cervical ROM normal and No Cervical spine tenderness Thoracic/Lumbar Spine: thoracic and lumbar spine normal to inspection, Thoracic/lumbar spine scar(s), pain with thoraco-lumbar ROM, thoraco-lumbar ROM limited, No thoracic spinal tenderness and No lumbar spinal tenderness Sacroiliac joints: bilaterally nontender Psych Appearance: grossly normal Mental Status: mental status grossly normal Speech and movement: Normal speech and movement present Affect: normal affect Attitude: cooperative Thought process: Normal thought process present Thought content: Normal thought content present, suicidality (none), no homicidality and No Depressive thoughts present Insight: Good insight present (Psych) Judgement: Good judgement present (Psych) Assessment & Plan Assessment & Plan (1) Failed back syndrome, lumbosacral: Code(s): M96.1 - Postlaminectomy syndrome, not elsewhere classified Category: Medical Plan: ? Intrathecal pump refill. THE PATIENT CAME TODAY IN THE OR - PACU FOR THE CHANGE OF THE MEDICATION IN her PAIN PUMP. The name and date of were verified and informed consent was obtained for the procedure. ?The pump was interrogated and the residual amount of fluid was found to be 2.3 mL. HE WAS POSITIONED prone on the bed AND THE AREA OF THE INTRATHECAL PUMP WAS PREPPED WITH CHLORAPREP. The fenestrated drape was sterilely applied over the area of the pump. Sterile gloves were worn and of the aspiration system was assembled containing 2 in 22 gauge noncoring needle, the needle was connected to extension tubing which was connected to the 20 cc sterile syringe. The pain pump was palpated under the skin in the patient's right buttock area. The needle was inserted through the skin and the central plug of the pain pump and fluid was aspirated. The clear fluid was going into the syringe the total amount of the fluid was 3.0 mL .. After that a new batch? of medication was obtained which was containing hydromorphone in concentration 2000 micro g/ml and 6 mg/ml of bupivacaine. . The admixture was made in 20 cc syringe prepared by [facility] compounding pharmacy. The syringe was connected to the bacterial filter, and then connected to the extension tubing. After that the medication in the syringe was slowly instilled into the pump with aspirations at 15 and 5 cc raymond.? The pump was reprogrammed for the doses of continuous hydromorphone o 96.1 mcg a day, he is also is reprogrammed to receive 128.9 micro g of Dilaudid with corresponding doses of the bupivacaine on demand 4 times a day with lockout interval of 4 hours. The medication will be administered over 5 minutes . The next appointment 06/19/2025 The concentration of the medication is as prevoius. (2) Peripheral neuropathy: Code(s): G62.9 - Polyneuropathy, unspecified Category: Medical Qualifiers: Peripheral neuropathy type: polyneuropathy, unspecified Qualified Code(s): G62.9 - Polyneuropathy, unspecified (3) Chronic pain syndrome: Code(s): G89.4 - Chronic pain syndrome Category: Medical (4) Degenerative joint disease involving multiple joints: Code(s): M15.9 - Polyosteoarthritis, unspecified Category: Medical (5) Foot pain, bilateral: Code(s): M79.671 - Pain in right foot; M79.672 - Pain in left foot Category: Medical Plan Next pump refill will be scheduled on 06/19/2025. The admixture of the medication must remain the same with hydromorphone 2 milligrams/mL and bupivacaine 12 milligrams/mL. Coding Level of Care Code Est Pt Level 3 (47114) Procedure Only Diagnoses Failed back syndrome, lumbosacral M96.1 Peripheral polyneuropathy G62.9 Peripheral neuropathy type: polyneuropathy, unspecified Chronic pain syndrome G89.4 Degenerative joint disease involving multiple joints M15.9 Foot pain, bilateral M79.671; M79.672
--- OUTSIDE RECORDS SUMMARY | 2025-04-20 17:36 | XMS_ITS | Clinical Summary ---
Author Organization [facility] Address [address] [place] [address] Care Team Providers Care Brass Molder Name Role Phone Unavailable Primary Care Provider [...] Description 04/25/2025 1:30 PM EDT Clinical Support [facility] [address] [place] [phone] Osman Abbott MD [address] [place] [phone] Trinidad Morrell Au.D [address] [place] [address] [phone] Health Maintenance Due Date Last Done Comments Advance Care Planning 1950 Hepatitis C Virus Screening 1950 DTaP/Tdap/Td Vaccines (1 - Tdap) 1969 Pneumococcal Vaccines 50+ (1 of 2 - PCV) 1969 Colonoscopy 1995 Zoster (Shingles) Vaccine (1 of 2) 02/04/2000 RSV Vaccine 60 years and older and Patients (1 - 1-dose 75+ series) 2025 Influenza Vaccine 02/25/2025 09/18/2023, , 06/14/2019 COVID-19 Vaccine ( season) 2025 01/31/2022, 06/20/2021, 12/06/2020, Additional history exists Hepatitis B Vaccines Aged Out No long er eligible based on patient's age to complete this topic Insurance AETNA HMO/POS
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
--- OUTSIDE RECORDS SUMMARY | 2025-04-20 17:36 | XMS_ITS | Patient Health Record ---
Author Organization [facility] Address [address] [place] [address] Care Team Providers Care Hotel Housekeeper Name Role Phone Joyce SHANNON, Rosetta Primary Care Provider Mickey Esqueda Unavailable [phone] Allergies No Known Allergies Reason For Referral No Information Medications Medication SIG (Take, Route, Fr equency, Duration) Notes Start Date End Date Status PARoxetine HCl 30 MG 1 tablet in the mor davey Orally Once a day; Duration: 30 day(s) Active dilTIAZem HCl 120 MG as directed Orally Active Gabapentin 600 MG 1 tablet Orally Once a day; Duration: 30 day(s) Active Pain Aide - as directed Active AFO-fixed . 1 . Wear daily; Duration: . 12/06/2022 Active Benadryl Active Colace Active [...] Problem Acquired hammer toe of left foot ([id number] ) Other hammer toe(s) (acquired), left foot (M20.42) Active confirmed Problem Localized, primary osteoarthritis of the ankle and/or foot (768185601) Osteoarthritis of right ankle or foot (M19.071) Active confirmed Problem Localized, primary osteoarthritis of the ankle and/or foot (627155911) Osteoarthritis of left ankle or foot (M19.072) Active confirmed [...] End Date [employer] Medicare Open [address] [place] [address] [id number] Phyllis Ireland Spouse - patient is the spouse of the insured Medical (General) History Medical History History ICD Code Anxiety Depression Arthritis Back,Hip,and Knee pain Broken bones Hepatitis C High blood pressure Liver disease Numbness Psoriasis/eczema Sciatica Stomach problems ulcer Vascular phlebitis (clots) Surgical History Surgery Date(Month/Year) hip replacement 2009, 2014 back surgery 2012, 2014 splenectomy 1973 appendectomy stimulator implant in back for pain 2018 Hospitalization History Reason Date(Month/Year) foot inf 05/2021
--- OUTSIDE RECORDS SUMMARY | 2025-04-20 17:36 | XMS_ITS | Data Portability ---
Author Organization [facility], [facility] Address [address] [place] [address] Assessment Encounter Date Assessment Date Assessment LastModified [...] of continued conservative management versus surgical management. [email or web address] Not available 12/06/2024 08:21:48 03/17/2025 03/17/2025 I am seeing the patient today under the supervision of Dr. Junior who was available but who did not [...] of continued conservative management versus surgical management. [email or web address] Not available 03/17/2025 12:45:53 Plan of Treatment Reminders Order Date Submit Date Provider Last Modified By Organization Details Last Modified Time Details Appointments RECHECK 15 2024 03:00P M Yaya Villarreal PA-C Not available Not available Not [...] record ed. [email or web address] Not Available 02/27 16:50:54 03/26/2012/11/2021 imagi ng/di agnos tic resul t No observ ation record ed. [email or web address] Not Available 02/27 16:51:04 Result Notes None recorded. Problems Name Problem SNOMED Code Status Onset Date Resolution Date Notes Provider Name and Address Organization Details Recorded Time Primary gonarthrosi s, bilateral [id number] Active 024 tayler steele [facility] 16:07:32 Problem Notes None recorded. Procedures Surgical History Date Name Laterality Status Provider Name and Address Organization Details Recorded Time 5 JZKNEE INJ Rob completed Yaya Villarreal PA-C [address], [place], [address], [facility] 03/17/2025 12:45:45 5 JZKNEE INJ Rob completed Yaya Villarreal PA-C [address], [place], [address], [facility] 12/06/2024 08:20:32 4 Knee Kenalog 40 1cc Injection, Bilateral completed Noni Plasencia PA-C [address], [place], [address], [facility] 06/25/2024 16:36:34 4 Knee Kenalog 40 1cc Injection, Bilateral completed Noni Plasencia PA-C [address], [place], [address], [facility] 03/03/2024 16:20:19 Imaging Results None recorded. [...] TABLET BY MOUTH THREE TIMES A DAY active Not Available Not Available No t Available lisinopril 20 mg tablet TAKE 1 TABLET BY MOUTH EVERY DAY active Not Available Not Available No t Available hydromorpho ne 2 mg tablet TAKE [...] Updated DateTime 12/06/2024 182.88 cm 27.1 kg/m2 86544.47 g [facility] 12/06/2024 15:06:10 Date Recorded Body height Provider Name an d Address Organization Details Last Updated DateTime 03/03/2024 182.88 cm ROBBY MILLARDSHIRLEY [facility] 03/03/2024 15:14:17 Date Recorded Body height Provider Name an d Address Organization Details Last Updated DateTime 03/17/2025 182.88 cm MALLY Pires [facility] 03/17/2025 15:00:22 Date Recorded Body height Body mass index (BMI) Body weight Provider Name and Address Organization Details Last Updated DateTime 06/25/2024 182.88 cm 25.8 kg/m2 56193.55 g tayler steele [facility] 06/25/2024 15:35:26 Social History None recorded. Functional Status None recorded. Mental Status None recorded. Family History Nothing Reported. Medical History No medical history recorded. Past Encounters Encounter ID Performer Location Encounter Start Date Encounter Closed Date Diagnosis/Indication Diagnosis SNOMED-CT Code Diagnosis ICD10 Code Diagnosis IMO Codes Diagnosis Note [id number] Noni Plasencia PA-C [facility] [address] [place] [address] 03/03/2024 15:04:46 03/25/2024 09:33:01 Bilateral osteoarthritis of knees [id number] 14977 M17.0 [id number] Noni Plasencia PA-C [facility] [address] [place] [address] 06/25/2024 15:20:29 07/19/2024 10:17:46 Primary gonarthrosis, bilateral 257938635 M17.0 [id number] Yaya Villarreal PA-C [facility] [address] [place] [address] 12/06/2024 14:58:37 12/14/2024 10:29:25 Primary gonarthrosis, bilateral 488457106 M17.0 [id number] Yaya Villarreal PA-C [facility] [address] [place] [address] 03/17/2025 14:56:44 03/29/2025 13:38:11 Primary gonarthrosis, bilateral 077449532 M17.0 [id number] Health Concerns Section Related Observation LastModified by Organization Detai ls LastModified Time None Recorded Concern Status LastModified by Organization Details LastModified Time None Recorded Advance Directives Directive None Recorded Payers Insurance Date Sequence Insurance Name Policy Number Policy Bucio Covered Member ID Bucio Member ID Guarantor Name 03/29/2025 1 [employer]ET[employer] (POS II) [id number] Regina Ireland [id number] Zheng Ireland Notes Date Note Type Note Provider Name and Address Organization Details Recorded Time 03/03/2024 text/html I am seeing the patient today under the supervision of Dr. Junior who was available but who did not see the patient. HPI: Patient presenting today with known osteoarthritis of bilateral knees. Has been responding favorably to conservative treatment. Here today for a cortisone injection. Denies recent injury. No new systemic complaints. Past family, medical, social history and review of systems has been reviewed, updated, and is located in the patient s chart. Examination: Examination of bilateral knees reveals no effusion, erythema, or warmth. Injection site benign. Decreased range of motion. Point tender medial joint line. Calf is soft and nontender. 5/5 strength knee flexion and extension. Impression: Bilateral knee osteoarthritis Plan: The patient was thoroughly counseled today regarding their knee condition, its natural history, and conservative versus surgical treatment options. The patient is interested in receiving an injection with corticosteroid. Bilateral knees were prepped sterilely and an injection was administered utilizing 40mg of Kenalog and 4cc of 0.25% Marcaine. The patient tolerated the procedure well. Post-injection precautions were discussed. Recommended avoiding strenuous activity over the next 24-48 hours. Encouraged elevation of the leg, applying ice, and taking over the counter medication as needed. The patient is aware that the injection can be repeated as often as every 3 months. Noni Plasencia PA-C [address] [place] [address] [place] [address], [address], [facility] [place] [facility] 03/03/2024 16:20:37 06/25/2024 text/html I am seeing the patient today under the supervision of Dr. Adkins who was available but who did not see the patient. HPI: Patient presenting today with known osteoarthritis of bilateral knees. Has been responding favorably to conservative treatment. Here today for a cortisone injection. Denies recent injury. No new systemic complaints. Past family, medical, social history and review of systems has been reviewed, updated, and is located in the patient s chart. Examination: Examination of bilateral knees reveals no effusion, erythema, or warmth. Injection site benign. Decreased range of motion. Point tender medial joint line. Calf is soft and nontender. 5/5 strength knee flexion and extension. Impression: Bilateral knee osteoarthritis Plan: The patient was thoroughly counseled today regarding their knee condition, its natural history, and conservative versus surgical treatment options. The patient is interested in receiving an injection with corticosteroid. Bilateral knees were prepped sterilely and an injection was administered utilizing 40mg of Kenalog and 4cc of 0.25% Marcaine. The patient tolerated the procedure well. Post-injection precautions were discussed. Recommended avoiding strenuous activity over the next 24-48 hours. Encouraged elevation of the leg, applying ice, and taking over the counter medication as needed. The patient is aware that the injection can be repeated as often as every 3 months. Noni Plasencia PA-C [address] [facility] [address], [place], [address], [facility] [place] [facility] 06/25/2024 16:37:11
--- OUTSIDE RECORDS SUMMARY | 2025-04-20 17:36 | XMS_ITS | Clinical Summary ---
Author Organization [facility] Facility Address [address] [address] Care Team Providers Care Director Community Organization Name Role Phone Terry Manzano MD Primary Care Provider [phone] Allergies Active Allergy Reactions Criticality Noted Date [...] Insurance Aetna Commercial Aetna Commercial Care Teams Director Community Organization Relationship Specialty Start Date End Date Terry Manzano MD [address] [place], [place] PCP - General Internal Medicine 04/23/21
== END 2025-04-20 15:23 | disposition home or self-care (01) ==
LOC: HO.PMC 15:07
PROVIDERS: PCP Family Medicine; Visit Provider Anesthesiology
DX: M96.1 Postlaminectomy syndrome, not elsewhere classified (principal); G62.9 Polyneuropathy, unspecified; G89.4 Chronic pain syndrome; M15.9 Polyosteoarthritis, unspecified; Z45.1 Encounter for adjustment and management of infusion pump; M79.671 Pain in right foot; M79.672 Pain in left foot
CPT/HCPCS: 62370; 99213

== ENCOUNTER → 2025-04-20 15:06 | Outpatient (BNVA) | payer OTHER, SELFPAY | PROVIDERS: PCP Family Medicine; Visit Provider Anesthesiology | DX: Z45.1 Encounter for adjustment and management of infusion pump (principal); M96.1 Postlaminectomy syndrome, not elsewhere classified; G62.9 Polyneuropathy, unspecified; M79.671 Pain in right foot; M79.672 Pain in left foot; G89.4 Chronic pain syndrome; M15.9 Polyosteoarthritis, unspecified | CPT/HCPCS: 62370 ==

== ENCOUNTER 2025-06-16 15:19 | Outpatient (AMB) | payer OTHER, SELFPAY ==
--- NOTE | 2025-06-16 15:20 | A.OFFVIS_ITS ---
Vital Signs 06/16/25 15:21 Height 6 ft Weight 201 lb BMI 27.3 BP 123/58 L Blood Pressure Location Lt brachial Position Sitting Respiration 16 Pulse 74 Pulse Source Pulse Oximeter Pulse Oximetry (%) 89 L Oxygen Delivery Method Room Air Intake Visit Reasons: ITDD Refill Gage Maker Required: No Allergies aspirin Adverse Reaction (Unknown, Verified 06/16/25 15:21) Unknown [facility] Medical History Peripheral artery disease Raynauds disease Chronic pain syndrome Seborrheic dermatitis Viral hepatitis C Peripheral neuropathy Osteoarthritis Nicotine dependence Lumbar disc disease Leg edema Hypertensive disorder Hard of hearing Functional diarrhea Foot pain, bilateral Degenerative joint disease involving multiple joints Failed back syndrome, lumbosacral Depression Constipated Anxiety Actinic keratosis Abdominal tenderness Surgical History History of back surgery History of total hip replacement History of appendectomy H/O splenectomy Social History Alcohol intake: current Alcohol intake frequency: does not drink Patient Tobacco Use Status: Current everyday Tobacco user Tobacco use type: Cigarette Cigarette Packs Per Day: 0.5 Cigarettes Per Day: 10.0 Physical Exam Vital Signs: Last Vital Signs Pulse 74 06/16/25 15:21 Resp 16 06/16/25 15:21 BP 123/58 L 06/16/25 15:21 Pulse Ox 89 L 06/16/25 15:21 Oxygen Delivery Method Room Air 06/16/25 15:21 BMI result Body Mass Index 27.3 Assessment & Plan Assessment & Plan (1) Failed back syndrome, lumbosacral: Code(s): M96.1 - Postlaminectomy syndrome, not elsewhere classified Category: Medical Plan: ? Intrathecal pump refill. THE PATIENT CAME TODAY IN THE OR - PACU FOR THE CHANGE OF THE MEDICATION IN her PAIN PUMP. The name and date of were verified and informed consent was obtained for the procedure. ?The pump was interrogated and the residual amount of fluid was found to be 2.3 mL. HE WAS POSITIONED prone on the bed AND THE AREA OF THE INTRATHECAL PUMP WAS PREPPED WITH CHLORAPREP. The fenestrated drape was sterilely applied over the area of the pump. Sterile gloves were worn and of the aspiration system was assembled containing 2 in 22 gauge noncoring needle, the needle was connected to extension tubing which was connected to the 20 cc sterile syringe. The pain pump was palpated under the skin in the patient's right buttock area. The needle was inserted through the skin and the central plug of the pain pump and fluid was aspirated. The clear fluid was going into the syringe the total amount of the fluid was 2.3 mL .. After that a new batch? of medication was obtained which was containing hydromorphone in concentration 2000 micro g/ml and 6 mg/ml of bupivacaine. . The admixture was made in 20 cc syringe prepared by [facility] compounding pharmacy. The syringe was connected to the bacterial filter, and then connected to the extension tubing. After that the medication in the syringe was slowly instilled into the pump with aspirations at 15 and 5 cc raymond.? The pump was reprogrammed for the doses of continuous hydromorphone o 96.1 mcg a day, he is also is reprogrammed to receive 128.9 micro g of Dilaudid with corresponding doses of the bupivacaine on demand 4 times a day with lockout interval of 4 hours. The medication will be administered over 5 minutes . The next appointment 06/19/2025 The concentration of the medication is as prevoius. (2) Peripheral neuropathy: Code(s): G62.9 - Polyneuropathy, unspecified Category: Medical Qualifiers: Peripheral neuropathy type: polyneuropathy, unspecified Qualified Code(s): G62.9 - Polyneuropathy, unspecified (3) Chronic pain syndrome: Code(s): G89.4 - Chronic pain syndrome Category: Medical (4) Degenerative joint disease involving multiple joints: Code(s): M15.9 - Polyosteoarthritis, unspecified Category: Medical (5) Foot pain, bilateral: Code(s): M79.671 - Pain in right foot; M79.672 - Pain in left foot Category: Medical Plan Next pump refill will be scheduled on 06/19/2025. The admixture of the medication must remain the same with hydromorphone 2 milligrams/mL and bupivacaine 12 milligrams/mL. Coding Level of Care Code Procedure Only Diagnoses Failed back syndrome, lumbosacral M96.1 Peripheral polyneuropathy G62.9 Peripheral neuropathy type: polyneuropathy, unspecified Chronic pain syndrome G89.4 Degenerative joint disease involving multiple joints M15.9 Foot pain, bilateral M79.671; M79.672
[2025-06-16 15:21] VITALS: BP 123/58; PULSE 74; RESP 16; O2SAT 89; BMI 27.3
--- OUTSIDE RECORDS SUMMARY | 2025-06-16 20:34 | XMS_ITS | Data Portability ---
Author Organization [facility] Address [address] [place] [address] Assessment Encounter Date Assessment Date Assessment LastModified [...] of continued conservative management versus surgical management. [email or web address] Not available 12/06/2024 08:21:48 03/17/2025 03/17/2025 I [...] of continued conservative management versus surgical management. Not available 03/17/2025 12:45:53 Plan of Treatment Reminders Order Date Submit Date Provider Last Modified By Organization Details Last Modified Time Details Appointments RECHECK 15 2024 03:00P M Yaya Villarreal PA-C Not available Not available Not available NEW PATIENT 15 2024 11:00A M Jen Garcia PA-C Not available Not available Not available [...] Details Recorded Time Primary gonarthrosi s, bilateral 478790233 Active 024 tayler steele [facility] 16:07:32 Problem Notes None recorded. Procedures Surgical History Date Name Laterality Status Provider Name and Address Organization Details Recorded Time 5 JZKNEE INJ Rob completed Yaya Villarreal PA-C [address] [facility], [place], [address], [facility] 03/17/2025 12:45:45 5 JZKNEE INJ Rob completed Yaya Villarreal PA-C [address] [facility], [place], [address], [facility] 12/06/2024 08:20:32 4 Knee Kenalog 40 1cc Injection, Bilateral completed Noni Plasencia PA-C [address] [facility], [place], [address], [facility] 06/25/2024 16:36:34 4 Knee Kenalog 40 1cc Injection, Bilateral completed Noni Plasencia PA-C [address] [facility], [place], [address], [facility] 03/03/2024 16:20:19 Imaging Results None recorded. Procedure [...] Updated DateTime 12/06/2024 182.88 cm 27.1 kg/m2 98822.47 g [facility] 12/06/2024 15:06:10 Date Recorded Body height Provider Name an d Address Organization Details Last Updated DateTime 03/03/2024 182.88 cm ROBBY FERGUSON [facility] 03/03/2024 15:14:17 Date Recorded Body height Provider Name an d Address Organization Details Last Updated DateTime 03/17/2025 182.88 cm MALLY [facility] 03/17/2025 15:00:22 Date Recorded Body height Body mass index (BMI) Body weight Provider Name and Address Organization Details Last Updated DateTime 06/25/2024 182.88 cm 25.8 kg/m2 93742.55 g tayler steele [facility] 06/25/2024 15:35:26 Social History None recorded. Functional Status None recorded. Mental Status None recorded. Family History Nothing Reported. Medical History No medical history recorded. Past Encounters Encounter ID Performer Location Encounter Start Date Encounter Closed Date Diagnosis/Indication Diagnosis SNOMED-CT Code Diagnosis ICD10 Code Diagnosis IMO Codes Diagnosis Note [id number] Noni Plasencia PA-C [facility] [address] [place] [address] 03/03/2024 15:04:46 03/25/2024 09:33:01 Bilateral osteoarthritis of knees [id number] 14398 M17.0 [id number] Noni Plasencia PA-C [facility] [address] [place] [address] 06/25/2024 15:20:29 07/19/2024 10:17:46 Primary gonarthrosis, bilateral 050922706 M17.0 [id number] Yaya Villarreal PA-C [facility] [address] [place] [address] 12/06/2024 14:58:37 12/14/2024 10:29:25 Primary gonarthrosis, bilateral 851973527 M17.0 [id number] Yaya Villarreal PA-C [facility] [address] [place] [address] 03/17/2025 14:56:44 03/29/2025 13:38:11 Primary gonarthrosis, bilateral 032415082 M17.0 [id number] Health Concerns Section Related Observation LastModified by Organization Detai ls LastModified Time None Recorded Concern Status LastModified by Organization Details LastModified Time None Recorded Advance Directives Directive None Recorded Payers Insurance Date Sequence Insurance Name Policy Number Policy Bucio Covered Member ID Bucio Member ID Guarantor Name 05/11/2025 1 MICK (POS II) [id number] Regina Ireland [id number] Zheng Ireland Notes Date Note Type [...] as every 3 months. Noni Plasencia PA-C [address] [place] [address] [address], [place], [address], [facility] 03/03/2024 16:20:37 06/25/2024 text/html I am seeing [...] every 3 months. Noni Plasencia PA-C [address] [facility] [address], [place], [address], [facility] [place] [facility] 06/25/2024 16:37:11
--- OUTSIDE RECORDS SUMMARY | 2025-06-16 20:34 | XMS_ITS | Clinical Summary ---
Author Organization [facility] Facility Address [address] [address] Care Team Providers Care Customer Strategy Manager Name Role Phone Terry Manzano MD Primary Care Provider [phone] Allergies Active Allergy Reactions Criticality Noted Date [...] Insurance Aetna Commercial Aetna Commercial Care Teams Customer Strategy Manager Relationship Specialty Start Date End Date Terry Manzano MD [address] [place], [place] PCP - General Internal Medicine 04/23/21
--- OUTSIDE RECORDS SUMMARY | 2025-06-16 20:34 | XMS_ITS | Encounter Summary ---
Author Organization [facility] Address [address] [place] [address] Care Team Providers Care Automotive Assembler Name Role Phone Cristian Swenson MD Primary Care Provider [phone] Reason for Visit * Reason Onset Date Comments Results 05/10/2025 Encounter Details Date Type Department Care Team (Late st Contact Info) Description 05/10/2025 Results Follow-Up Gastroenterology - [address] [facility] [address] [place] [address] [facility] [place] Social History Tobacco Use Types Packs/Day Years [...] Orientation Straight 03/15/2025 3: 44 PM EDT documented as of this encounter Progress Notes * Sylvia Vaughan - 05/25/2025 3:32 PM EDT Patients daughters called back regarding her fathers results and states she would like a call back to discuss the [place] results because nothing was left at all about that. If she happens to not answer adetailed message can be left as well. documented in this encounter Plan of Treatment Not on file documented as of this encounter Visit Diagnoses Not on filedocumented in this encounter Care Teams Automotive Assembler Relationship Specialty Start Date End Date Cristian Swenson MD [address] [place] [address] PCP - General Internal Medicine 03/15/25 documented as of this encounter
--- OUTSIDE RECORDS SUMMARY | 2025-06-16 20:34 | XMS_ITS | Clinical Summary ---
Author Organization [facility] [address] Address [address] [place] [address] Phone Care Team Providers Care Pastry Cook Apprentice Name Role Phone Cristian Swenson MD Primary Care Provider [phone] Encounters Date Type Department Care Team Description 05/10/2025 Results Follow-Up Gastroenterology - [address] [phone] [facility] [place] 05/02/2025 Results Follow-Up Gastroenterology - [address] [phone] Stephanie Chappell [place] 04/27/2025 3:00 PM EDT - 04/27/2025 11:59 PM EDT Hospital Encounter [facility] Ultrasound [address] [place] [phone] Cirrhosis of liver without ascites, unspecified hepatic cirrhosis type (CMS/HCC V24, CMS/HCC V28) Discharge Disposition: Home or Self Care from Last 3 Months Surgical History Surgery [...] of 3 - Risk 3-dose series) 2010 Colorectal Cancer Screening: Colonoscopy 09/07/2014 09/07/2004 Cholesterol Screening (Lipid Panel) 06/30/2022 Falls Risk Assessment 06/30/2022 Hepatitis C Screening 06/30/2022 Social Influencers of Health Screening 06/30/2022 Pneumococcal Vaccine: 50+ Years (3 of 3 - PCV20 or PCV21) 06/14/2024 06/14/2019, 03/17/2013 Depression Screening 07/28/2024 RSV Immunization Adult Patients (1 - 1-dose 75+ series) 2025 COVID-19 Vaccine ( season) 2025 01/31/2022, 06/20/2021, 12/06/2020, Additional history exists Influenza Vaccine (#1) 2025 , 09/18/2023, 06/20/2021, Additional history exists Hypertension/CHF/CAD Annual BMP Blood Test 04/27/2026 04/27/2025 DTaP,Tdap,and Td Vaccines (2 - Td or [...] Procedure Name Priority Date/Time Associated Diagnosis Comments CBC WITH AUTO DIFFERENTIAL Routine 04/27/2025 3:47 PM EDT Cirrhosis of liver without ascites, unspecified hepatic cirrhosis type (CMS/HCC V24, CMS/HCC V28) ALPHA FETOPROTEIN TUMOR MARKER Routine 04/27/2025 3:47 PM EDT Cirrhosis of liver without ascites, unspecified hepatic cirrhosis type (CMS/HCC V24, CMS/HCC V28) PROTHROMBIN TIME WITH INR Routine 04/27/2025 3:47 PM EDT Cirrhosis of liver without ascites, unspecified hepatic cirrhosis type (CMS/HCC V24, CMS/HCC V28) HEPATIC FUNCTION PANEL Routine 04/27/2025 3:47 PM EDT Cirrhosis of liver without ascites, unspecified hepatic cirrhosis type (CMS/HCC V24, CMS/HCC V28) BASIC METABOLIC PANEL Routine 04/27/2025 3:47 PM EDT Cirrhosis of liver without ascites, unspecified hepatic cirrhosis type (CMS/HCC V24, CMS/HCC V28) CBC AND DIFFERENTIAL Routine 04/27/2025 3:47 PM EDT Cirrhosis of liver without ascites, unspecified hepatic cirrhosis type (CMS/HCC V24, CMS/HCC V28) US ABDOMEN LIMITED Routine 04/27/2025 3: 43 PM EDT Cirrhosis of liver without ascites, unspecified hepatic cirrhosis type (CMS/HCC V24, CMS/HCC V28) EXTERNAL COLONOSCOPY REPORT Routine 09/07/2004 1:58 PM EST from Last 3 Months or Most Recently Relevant to Health Maintenance Results * (ABNORMAL) CBC auto differential (04/27/2025 3:47 PM EDT) WBC 8.6 4.8 - 10.8 K/mcL LAB HEMETOLOGY METHOD 04/27/2025 4:[address] [facility] RBC 4.40(L) 4.50 - 5.50 M/mcL LAB HEMETOLOGY METHOD 04/27/2025 4:[address] [facility] Hemoglobin 14.3 13.5 - 17.5 g/dL LAB HEMETOLOGY [facility] Hematocrit 42.6 42.0 - 54.0 % LAB HEMETOLOGY METHOD 04/27/2025 4:[address] [facility] MCV 97.7 79.0 - 98.0 FL LAB HEMETOLOGY METHOD 04/27/2025 4[facility] MCH 32.8(H) 27.0 - 32.0 pcg LAB HEMETOLOGY METHOD 04/27/2025 4:[facility] MCHC 33.6 32.0 - 37.0 g/dL LAB HEMETOLOGY METHOD 04/27/2025 4:[address] [facility] RDW 13.8 11.0 - 15.0 % LAB HEMETOLOGY METHOD 04/27/2025 4:[address] [facility] Platelets 259 130 - 400 K/mcL LAB HEMETOLOGY METHOD 04/27/2025 4:[facility] MPV 9.3 7.0 - 11.0 FL LAB HEMETOLOGY METHOD 04/27/2025 4:[address] [facility] NRBC 0.0 <1.0 % LAB HEMETOLOGY METHOD 04/27/2025 4:13 [facility] NRBC Absolute 0.00 <0.10 K/mcL LAB HEMETOLOGY METHOD 04/27/2025 4:13 PM [facility] Neutrophils Relative 59.1 % LAB HEMETOLOGY METHOD 04/27/2025 4:13 PM [facility] Lymphocytes Relative 30.7 % LAB HEMETOLOGY METHOD 04/27/2025 4:13 [facility] Monocytes Relative 8.0 % LAB HEMETOLOGY METHOD 04/27/2025 4:13 PM [facility] Eosinophils Relative 1.5 % LAB HEMETOLOGY METHOD 04/27/2025 4:13 PM [facility] Basophils Relative 0.5 % LAB HEMETOLOGY METHOD 04/27/2025 4:13 PM [facility] Immature Granulocytes Relative 0.2 % LAB HEMETOLOGY METHOD 04/27/2025 4:13 PM [facility] Neutrophils Absolute 5.09 1.50 - 7.00 K/mcL LAB HEMETOLOGY METHOD 04/27/2025 4:13 PM [facility] Lymphocytes Absolute 2.64 1.00 - 5.00 K/mcL LAB HEMETOLOGY METHOD 04/27/2025 4:13 [facility] Monocytes Absolute 0.69 0.20 - 1.00 K/mcL LAB HEMETOLOGY METHOD 04/27/2025 4:13 PM [facility] Eosinophils Absolute 0.13 0.00 - 0.50 K/mcL LAB HEMETOLOGY METHOD 04/27/2025 4:13 [facility] Basophils Absolute 0.04 0.00 - 0.20 K/mcL LAB HEMETOLOGY METHOD 04/27/2025 4:[address] [facility] Immature Granulocytes Absolute 0.02 0.00 - 0.03 K/[facility] LAB HEMETOLOGY METHOD 04/27/2025 4:[address] [facility] Blood Venous blood specimen / Unknown Venipuncture / Unknown 04/27/2025 3:47 PM EDT 04/27/2025 4:06 PM EDT Jesús Maurer MD LAB BLOOD ORDERABLES Final Re sult Performing Organization Address City/[facility]/ZIP Co de Phone Number [facility] [address] [place] [address], [place] [phone] * Alpha fetoprotein tumor marker (04/27/2025 3:47 PM EDT) Pathologist [facility] AFP 4.4 0.0 - 8.0 ng/mL LAB CHEMISTRY METHOD 04/27/2025 5:[address] [facility] Blood Venous blood specimen / Unknown Venipuncture / Unknown 04/27/2025 3:47 PM EDT 04/27/2025 4:[address] [facility] - 04/27/2025 5:38 PM EDT The Siemens Advia Centaur Chemiluminescent Immunoassay is used. Results obtained with different assay methods or kits cannot be used interchangeably. Results cannot be interpreted as absolute evidence of the presence or absence of malignant disease. us Jesús Maurer MD LAB BLOOD ORDERABLES Final Re sult [facility] [address] [place] [address], [place] [phone] * Prothrombin time with INR (04/27/2025 3:47 PM EDT) Protime 12.3 10.6 - 13.9 sec LAB COAGULATION METHOD 04/27/2025 4:[address] [facility] INR 1.0 LAB COAGULATION METHOD 04/27/2025 4:[address] [facility] Blood Venous blood specimen / Unknown Venipuncture / Unknown 04/27/2025 3:47 PM EDT 04/27/2025 4:06 PM EDT us Jesús Maurer MD LAB BLOOD ORDERABLES Final Re sult [facility] [address] [place] [address], [place] [phone] * Hepatic function panel (04/27/2025 3:47 PM EDT) Total Protein 6.5 6.0 - 8.0 g/dL LAB CHEMISTRY METHOD 04/27/2025 4:41 PM [facility] Albumin 3.3 3.2 - 5.0 g/dL LAB CHEMISTRY METHOD 04/27/2025 4:41 PM [facility] Total Bilirubin 0.6 0.0 - 1.4 mg/dL LAB CHEMISTRY METHOD 04/27/2025 4:41 PM [facility] Bilirubin, Direct 0.2 0.0 - 0.3 mg/dL LAB CHEMISTRY METHOD 04/27/2025 4:41 PM [facility] Bilirubin, Indirect 0.4 0.0 - 1.1 mg/dL LAB CHEMISTRY METHOD 04/27/2025 4:41 PM [facility] ALT (SGPT) 20 10 - 60 unit/L LAB CHEMISTRY METHOD 04/27/2025 4:41 PM [facility] AST (SGOT) 15 10 - 42 unit/L LAB CHEMISTRY METHOD 04/27/2025 4:41 PM [facility] Alkaline Phosphatase 85 42 - 121 unit/L LAB CHEMISTRY METHOD 04/27/2025 4:[address] [facility] Blood Venous blood specimen / Unknown Venipuncture / Unknown 04/27/2025 3:47 PM EDT 04/27/2025 4:06 PM EDT us Jesús Maurer MD LAB BLOOD ORDERABLES Final Re sult [facility] [address] [place] [address], * Basic metabolic panel (04/27/2025 3:47 PM EDT) Sodium 140 133 - 145 mmol/L LAB CHEMISTRY METHOD 04/27/2025 4:41 PM [facility] Potassium 4.2 3.5 - 5.5 mmol/L LAB CHEMISTRY METHOD 04/27/2025 4:41 PM [facility] Chloride 106 96 - 110 mmol/L LAB CHEMISTRY METHOD 04/27/2025 4:41 PM [facility] CO2 30 21 - 32 mmol/L LAB CHEMISTRY METHOD 04/27/2025 4:41 PM [facility] Anion Gap 4 3 - 11 LAB CHEMISTRY METHOD 04/27/2025 4:41 PM [facility] Glucose 98 70 - 100 mg/dL LAB CHEMISTRY METHOD 04/27/2025 4:41 PM [facility] BUN 11 5 - 25 mg/dL LAB CHEMISTRY METHOD 04/27/2025 4:41 PM [facility] Creatinine 0.94 0.70 - 1.30 mg/dL LAB CHEMISTRY METHOD 04/27/2025 4:41 PM [facility] eGFR 85 >=60 mL/min/1. 73m2 LAB CHEMISTRY METHOD 04/27/2025 4:41 PM [facility] Comment:Calculation based on the Chronic Kidney Disease Epidemiology Collaboration (CKD-EPI) equation refit without adjustment for race. BUN/Creatinine Ratio 11.7 LAB CHEMISTRY METHOD 04/27/2025 4:[address] [facility] Calcium 9.1 8.5 - 10.5 mg/dL LAB CHEMISTRY METHOD 04/27/2025 4:[address] [facility] Blood Venous blood specimen / Unknown Venipuncture / Unknown 04/27/2025 3:47 PM EDT 04/27/2025 4:06 PM EDT us Jesús Maurer MD LAB BLOOD ORDERABLES Final Re sult [facility] [address] [place] [address], [place] [phone] * US Abdomen Limited (04/27/2025 3:43 PM EDT) Anatomical Region Laterality Modality Body Ultrasound 05/06/2025 2:38 PM EDT Impressions 05/06/2025 2:42 PM EDT 1. The study is markedly limited. 2. The liver is not well evaluated. 3. The liver is not enlarged. 4. The background hepatic echotexture is heterogeneous. 5. No suspicious focal liver lesion demonstrated. 6. Cholelithiasis. -------- FINAL REPORT -------- Dictated By: Yury Robins Dictated Date: 05/06/2025 14:38 ET Assigned Physician: Yury Robins Reviewed and Electronically Signed By: Yury Robins Signed Date: 05/06/2025 14:42 ET Workstation ID: [id number] Transcribed By: Self Edit Transcribed Date: 05/06/2025 14:38 ET Narrative 05/06/2025 2:42 PM EDT EXAMINATION: ABDOMEN ULTRASOUND, LIMITED CLINICAL INFORMATION: Cirrhosis. COMPARISON: Portions of previous 04/06/24 TECHNIQUE: Ultrasound of the right upper quadrant FINDINGS: QUALITY: The study is markedly limited. Bowel gas obscures some of the anatomy. The upper aspect of the liver is not able to be visualized. LI - RADS visualization score = Visualization C: Severe limitations ALONSO for visualization scoring: A - Minimal limitations-unlikely to meaningfully affect sensitivity B - Moderate limitations-limitations may obscure small masses C - Severe limitations-limitations significantly lowers sensitivity for focal liver lesions PANCREAS: Most of the pancreas was obscured. No large abnormality demonstrated. ABDOMINAL AORTA/IVC: A portion the upper IVC as visualized without a definite abnormality. LIVER: Partially obscured. The right lobe of the liver measures 17.3 cm. The liver contour appears relatively smooth. The portal tracts are visualized. The deeper aspects of the liver are not optimally evaluated. The background hepatic echotexture is heterogeneous. No suspicious focal liver lesion demonstrated. BILIARY: Multiple mobile echogenic foci consistent with stones. No pericholecystic fluid. No definite gallbladder wall thickening. COMMON BILE DUCT: The common duct measures approximately 0.4 cm. The region of the common duct was partially obscured. GALLBLADDER TENDERNESS: There is no reported tenderness to transducer pressure over the gallbladder. KIDNEYS: Right renal length: 10.2 cm in greatest length Left renal length: Not examined. There is no dilation of the intrarenal collecting system in the right kidney. There is no suspicious focal lesion demonstrated in the right kidney. There is no shadowing calculus demonstrated in the right kidney. SPLEEN: Surgically absent FLUID: No intraperitoneal fluid demonstrated in the upper abdomen Procedure Note Yury Robins MD - 05/06/2025 EXAMINATION: ABDOMEN ULTRASOUND, LIMITED CLINICAL INFORMATION: Cirrhosis. COMPARISON: Portions of previous 04/06/24 TECHNIQUE: Ultrasound of the right upper quadrant FINDINGS: QUALITY: The study is markedly limited. Bowel gas obscures some of theanatomy. The upper aspect of the liver is not able to be visualized. LI - RADS visualization score = Visualization C: Severe limitations ALONSO for visualization scoring: A - Minimal limitations-unlikely to meaningfully affect sensitivity B - Moderate limitations-limitations may obscure small masses C - Severe limitations-limitations significantly lowers sensitivity forfocal liver lesions PANCREAS: Most of the pancreas was obscured. No large abnormalitydemonstrated. ABDOMINAL AORTA/IVC: A portion the upper IVC as visualized without adefinite abnormality. LIVER: Partially obscured. The right lobe of the liver measures 17.3 cm.The liver contour appears relatively smooth. The portal tracts arevisualized. The deeper aspects of the liver are not optimally evaluated. The background hepatic echotexture is heterogeneous. No suspicious focal liver lesion demonstrated. BILIARY: Multiple mobile echogenic foci consistent with stones. Nopericholecystic fluid. No definite gallbladder wall thickening. COMMON BILE DUCT: The common duct measures approximately 0.4 cm. Theregion of the common duct was partially obscured. GALLBLADDER TENDERNESS: There is no reported tenderness to transducerpressure over the gallbladder. KIDNEYS: Right renal length: 10.2 cm in greatest length Left renal length: Not examined. There is no dilation of the intrarenal collecting system in the rightkidney. There is no suspicious focal lesion demonstrated in the right kidney. There is no shadowing calculus demonstrated in the right kidney. SPLEEN: Surgically absent FLUID: No intraperitoneal fluid demonstrated in the upper abdomen IMPRESSION: 1. The study is markedly limited. 2. The liver is not well evaluated. 3. The liver is not enlarged. 4. The background hepatic echotexture is heterogeneous. 5. No suspicious focal liver lesion demonstrated. 6. Cholelithiasis. -------- FINAL REPORT -------- Dictated By: Yury Robins Dictated Date: 05/06/2025 14:38 ET Assigned Physician: Yury Robins Reviewed and Electronically Signed By: Yury Robins Signed Date: 05/06/2025 14:42 ET Workstation ID: [id number] Transcribed By: Self Edit Transcribed Date: 05/06/2025 14:38 ET Jesús Maurer MD IM US PROCEDURES Final Resul t * External Colonoscopy Report (09/07/2004 1:58 PM EST) Anatomical Region Laterality Modality Endoscopy Historical Provider GI~PROCEDURE ORDERABLES F inal Result from Last 3 Months or Most Recently Relevant to Health Maintenance Insurance MEDICARE [employer] Advance Directives Documents on File Type Date Recorded Patient Transportation Driver Expl anation Health Care Decision (hx) 04/21/2021 [...] (hx) 04/21/2021 AD BERGER DIRECTIVE Care Teams Pastry Cook Apprentice Relationship Specialty Start Date End Date Cristian Swenson MD [address] [place] [address] PCP - General Internal Medicine 03/15/25
--- OUTSIDE RECORDS SUMMARY | 2025-06-16 20:34 | XMS_ITS | Patient Health Record ---
Author Organization [facility] [place] Address [address] [place] [address] Care Team Providers Care Clinic Specialist Name Role Phone Joyce SHANNON, Rosetta Primary Care Provider Mickey Dyson Unavailable [phone] Allergies No Known Allergies Reason For Referral [...] Problem Acquired hammer toe of left foot (7009428808858720 ) Other hammer toe(s) (acquired), left foot (M20.42) Active confirmed Problem Localized, primary osteoarthritis of the ankle and/or foot (162609177) Osteoarthritis of right ankle or foot (M19.071) Active confirmed Problem Localized, primary osteoarthritis of the ankle and/or foot (691341266) Osteoarthritis of left ankle or foot (M19.072) [...] End Date [employer] Open [address] [place] [address] [id number] Phyllis Ireland Spouse - patient is the [...]
--- OUTSIDE RECORDS SUMMARY | 2025-06-16 20:34 | XMS_ITS | Continuity of Care Document ---
Author Organization MD - [facility], [facility] 3rd floor Address [address] [place] [address] Assessment Encounter Date Assessment Date Assessment LastModified by Organization Details LastModified Time 03/17/2025 03/17/2025 I am seeing the patient [...] of continued conservative management versus surgical management. [email or web address] Not available 03/17/2025 12:45:53 Plan of Treatment [...] instructions recorded. Reason for Referral None Reported. Problems Name Problem SNOMED Code Status Onset Date Resolution Date Notes Provider Name and Address Organization Details Recorded Time Primary gonarthrosi s, bilateral [id number] Active 024 tayler steele [facility] 4 16:07:32 Problem Notes None recorded. Procedures Surgical History Date Name Laterality Status Provider Name and Address Organization Details Recorded Time 5 JZKNEE INJ Rob completed Yaya Villarreal PA-C [address], [place], [address], [facility] 03/17/2025 12:45:45 5 JZKNEE INJ Rob completed Yaya Villarreal PA-C [address], [place], [address], [facility] 12/06/2024 08:20:32 4 Knee Kenalog 40 1cc Injection, Bilateral completed Noni Plasencia PA-C [address], [place], [address], [facility] 06/25/2024 16:36:34 4 Knee Kenalog 40 1cc Injection, Bilateral completed Noni Plasencia PA-C [address], [place], [address], [facility] 03/03/2024 16:20:19 Imaging Results None recorded. [...] t Available Vitals Date Recorded Body height Provider Name an d Address Organization Details Last Updated DateTime 03/17/2025 182.88 cm MALLY Pires [place] - [facility] 03/17/2025 15:00:22 Social History None recorded. Functional Status None recorded. Mental Status None recorded. Family History Nothing Reported. Medical History No medical history recorded. Past Encounters Encounter ID Performer Location Encounter Start Date Encounter Closed Date Diagnosis/Indication Diagnosis SNOMED-CT Code Diagnosis ICD10 Code Diagnosis IMO Codes Diagnosis Note [id number] SH[facility] Torres 3rd [address] [place] [address] 03/17/2025 14:56:44 03/29/2025 13:38:11 Primary gonarthrosis, bilateral 005899883 M17.0 [id number] Health Concerns Section Related Observation LastModified by Organization Nata ls LastModified Time None Recorded Concern Status LastModified by Organization Details LastModified Time None Recorded Payers Encounter Date Sequence Insurance Name Policy Number Policy Bucio Covered Member ID Bucio Member ID Guarantor Name 03/17/2025 1 [employer] (POS II) [id number] Regina Ireland [id number] Zheng Ireland
--- OUTSIDE RECORDS SUMMARY | 2025-06-16 20:34 | XMS_ITS | Encounter Summary ---
Author Organization [facility] Address [address] [place] [address] Care Team Providers Care Boiler Fitter Name Role Phone Cristian Swenson MD Primary Care Provider [phone] Encounter Details Date Type Department Care Team ([facility] st Contact Info) Description 05/02/2025 Results Follow-Up Gastroenterology - [address] [place] [phone] Stephanie Chappell [place] Social History Tobacco Use Types Packs/Day [...] PM EDT documented as of this encounter Plan of Treatment Not on file documented as of this encounter Visit Diagnoses Not on filedocumented in this encounter Care Teams Boiler Fitter Relationship Specialty Start Date End Date Cristian Swenson MD [address] [place] [address] PCP - General Internal Medicine 03/15/25 documented as of this encounter
== END 2025-06-16 15:46 | disposition home or self-care (01) ==
LOC: HO.PMC 15:20
PROVIDERS: PCP Family Medicine; Visit Provider Anesthesiology
DX: M96.1 Postlaminectomy syndrome, not elsewhere classified (principal); G62.9 Polyneuropathy, unspecified; G89.4 Chronic pain syndrome; M15.9 Polyosteoarthritis, unspecified; M79.671 Pain in right foot; M79.672 Pain in left foot; Z45.1 Encounter for adjustment and management of infusion pump
CPT/HCPCS: 62370

== ENCOUNTER → 2025-06-16 15:19 | Outpatient (BNVA) | payer OTHER, SELFPAY | PROVIDERS: PCP Family Medicine; Visit Provider Anesthesiology | DX: Z45.1 Encounter for adjustment and management of infusion pump (principal); M96.1 Postlaminectomy syndrome, not elsewhere classified; G62.9 Polyneuropathy, unspecified; G89.4 Chronic pain syndrome; M15.9 Polyosteoarthritis, unspecified; M79.671 Pain in right foot; M79.672 Pain in left foot; Z79.891 Long term (current) use of opiate analgesic | CPT/HCPCS: 62370 ==